=== PATIENT | female | born 1955 | race Caucasian/White ===

== ENCOUNTER 2016-10-25 | Inpatient (IN) ==
[2016-10-25 01:04] LABS: Basophils % 0.1 %; Hematocrit 41.4 % (35.3-44.9); Hemoglobin 12.9 g/dL (11.5-15.4); Immature Granulocytes % 0.5 % (0-4); Immature Platelets 11.6 % (1.1-6.1); Lymphocytes # 1.1 K/mcL (0.6-4.6); Lymphocytes % 8.6 %; Mean Corpuscular HGB Conc 31.2 g/dL (31.6-35.5); Mean Corpuscular Hemoglobin 27.5 pg (28.0-33.3); Mean Corpuscular Volume 88.3 fL (83.0-100.0); Mean Platelet Volume 11.5 fL (9.4-12.4); Monocytes # 1.2 K/mcL (0.0-1.3); Neutrophils # 10.6 K/mcL (1.6-8.9); Nucleated Red Blood Cells 0.2 /100 WBC (0); Platelet Count 146 K/mcL (140-400); Red Blood Count 4.69 M/mcL (3.82-4.97); Red Cell Distribution Width 14.9 % (11.5-14.5); Segmented Neutrophils % 81.8 %
[2016-10-25 01:10] LABS: INR 2.4; Prothrombin Time 26.7 Seconds (9.4-12.1)
[2016-10-25 01:12] LABS: Activated Partial Thrombo Time 24.8 Seconds (26.0-36.0)
[2016-10-25 01:17] LABS: Potassium 4.5 mEq/L (3.5-4.5)
[2016-10-25 01:20] LABS: Calcium 13.8 mg/dL (8.6-10.8)
--- NOTE | 2016-10-25 01:23 | Emergency Department Note ---
START Narrative - START START: I examined this patient and my medical decision-making was reviewed with the MORTAR WORKER/PA/Advanced Practice Nurse/Resident Physician. I agree with the documented findings, disposition and treatment plan as described except to the extent set forth below.
[2016-10-25] MEDS ORDERED: 0.9 % Sodium Chloride 1,000 ML IVC ONE (01:26)
[2016-10-25] MEDS ORDERED: Aspirin 81 MG TAB.CHEW PO STA (01:30)
--- NOTE | 2016-10-25 01:30 | Emergency Department Note ---
Disposition Clinical Impression: New onset a-fib Pneumonia Qualifiers: Pneumonia type: due to unspecified organism Laterality: bilateral Lung location : unspecified part of lung Qualified Code(s): J18.9 - Pneumonia, unspecified organism Disposition: Admitted As Inpatient Condition: Good Referrals: NO,PCP [Primary Care Provider] - Forms: ED Satisfaction Letter Time of Disposition: 02:26 General Adult HPI - General Chief complaint: ED Shortness of Breath/Dyspnea Stated complaint: MARIE Time Seen by Provider: 10/25/16 01:10 Source: patient Limitations: no limitations Nursing Notes Reviewed: Yes Vital Signs Reviewed: Yes - History of Present Illness HPI Narrative: Two-week history of irregular heartbeat feeling at nighttime. Feels like her heart is racing after she has watched the [place] girls. Denies any chest pain or shortness of breath. Does have an increased difficulty breathing whenever she ambulates there are house. She reports no medical history. Recently stopped drinking alcohol 1 month ago and stopped smoking cigarettes one month ago. Pain Scale: 0 - Related Data Allergies Allergy/AdvReac Type Severity Reaction Status Date / Time No Known Allergies Allergy Verified 10/25/16 00:33 All systems ED: reviewed and negative except as stated. Constitutional: Denies: fever, chills ENT ED: Denies: throat pain, congestion Cardiovascular: Reports: palpitations ( only at night for 2 weeks), dyspnea on exertion (For 2 weeks). Denies: chest pain, syncope Respiratory: Denies: cough, dyspnea, wheezes Gastrointestinal: Denies: abdominal pain, nausea, vomiting, diarrhea, hematemesis, melena, hematochezia Genitourinary: Denies: urgency, dysuria, frequency, hematuria Musculoskeletal: Denies: back pain, neck pain Integumentary: Denies: rash, abrasion Neurological: Reports: weakness (Tired for the past 2 weeks.). Denies: headache Past Medical History - Past Medical History Attestation: Yes The following information was validated with the patient. Medical history: Reports: no medical history Psychiatric history: Reports: no psych history HEALTH INFORMATICS SPECIALIST history: Reports: bilateral tubal ligation - Social History Smoking Status: Former smoker Physical Exam - General Limitations: no limitations General appearance: alert, in distress (Appearance mildly dyspneic but denies shortness of breath.) - Head Head exam: atraumatic, normocephalic - Eye Eye exam: Present: normal appearance, PERRL, EOMI - ENT ENT exam: normal exam, normal oropharynx, mucous membranes moist - Neck Neck exam: Present: normal inspection, full ROM, trachea midline. Absent: tenderness, meningismus, lymphadenopathy - Chest Chest inspection: Present: normal inspection, symmetric chest wall rise. Absent : tenderness, rash - Respiratory Respiratory exam: Present: normal lung sounds bilaterally. Absent: respiratory distress, wheezes - Cardiovascular Cardiovascular exam: Present: tachycardia, irregular rhythm, normal heart sounds - Abdominal Exam Abdominal exam: Present: soft, Non-Tender, normal bowel sounds. Absent: tenderness, distention, guarding, rebound, rigidity, organomegaly - Extremities Exam Extremities exam: Present: normal inspection, full ROM, normal capillary refill , pedal edema (Mild bilateral pedal edema to ankle area.). Absent: tenderness - Back Exam Back exam: Present: normal inspection, full ROM. Absent: tenderness, CVA tenderness (R), CVA tenderness (L) - Neurological Exam Neurological exam: Present: alert, oriented X3 - Psychiatric Psychiatric exam: Present: normal affect, normal mood - Skin Skin exam: Present: warm, dry, intact, normal color. Absent: rash, cyanosis, diaphoresis Course Course Narrative: Female patient presenting to the emergency department with a 2 week history of feeling like her heart is racing when she is going to bed at night. She states when she starts watching the [place] girl she can start feeling her heartbeat funny. She denies any chest pain. She does report shortness of breath on ambulation. She denies any shortness of breath at this time. She states that she used to be a heavy drinker and stopped this cold turkey one month ago. She also stopped smoking 1 month ago. She states she is under an increased amount of stress due to the loss of her twin sister. She states that she does not have any medical problems that she is aware of. We do not have records for this patient to look at an old EKG. She states she has never been told that she had an irregular heartbeat. She is in A. fib with RVR at this time. We will begin Cardizem on her. We will give her Cardizem push and begin her on a Cardizem bolus. Her troponin is elevated. She does not have any signs of acute ischemia on her EKG she is denying any chest pain at this time. We will trend her troponins. We will admit patient to hospital. - Reevaluation(s) Reevaluation #1: Patient has a community-acquired pneumonia and a possible right-sided lung mass. Her calcium is elevated. I am concerned for her new cancer. We will treat patients as a pneumonia and admit to the hospital. Time: 02:26 - Consultations Consultation #1: Dr Garcia accepted patient in stable condition. Time: : Vital Signs Temperature 97.4 F L 10/25/16 00:29 Pulse Rate 138 10/25/16 00:29 Respiratory Rate 16 10/25/16 00:29 Blood Pressure 127/83 10/25/16 00:29 O2 Sat by Pulse Oximetry 98 10/25/16 00:29 Temperature 97.4 F L 10/25/16 00:29 Pulse Rate 138 10/25/16 00:29 Respiratory Rate 16 10/25/16 00:29 Blood Pressure 127/83 10/25/16 00:29 O2 Sat by Pulse Oximetry 93 10/25/16 01:27 Oxygen Delivery Oxygen Delivery Room Air Medical Decision Making - Medical Records Medical records reviewed: Yes I reviewed the patient's medical records. - Lab Data Lab results reviewed: Yes I reviewed the patient's lab results. Result diagrams: 10/25/16 00:58 10/25/16 00:58 Lab Results 10/25/16 10/25/16 10/25/16 Range/Units 00:58 00:58 00:58 WBC 13.0 H (4.3-11.1) K/mcL RBC 4.69 (3.82-4.97) M/mcL Hgb 12.9 (11.5-15.4) g/dL Hct 41.4 (35.3-44.9) % MCV 88.3 (83.0-100.0) fL MCH 27.5 L (28.0-33.3) pg MCHC 31.2 L (31.6-35.5) g/dL RDW 14.9 H (11.5-14.5) % Plt Count 146 (140-400) K/mcL MPV 11.5 (9.4-12.4) fL Immature Gran % 0.5 (0-4) % Seg Neutrophils % 81.8 % Lymphocytes % 8.6 % Monocytes % 9.0 % Eosinophils % 0.0 % Basophils % 0.1 % Neutrophils # 10.6 H (1.6-8.9) K/mcL Lymphocytes # 1.1 (0.6-4.6) K/mcL Monocytes # 1.2 (0.0-1.3) K/mcL Eosinophils # 0.0 (0.0-0.6) K/mcL Basophils # 0.0 (0.0-0.2) K/mcL Nucleated RBCs/100 WBC 0.2 H (0) /100 WBC Immature Plt Fraction 11.6 H (1.1-6.1) % PT 26.7 H (9.4-12.1) Seconds INR 2.4 APTT 24.8 L (26.0-36.0) Seconds Sodium 137 (136-145) mEq/L Potassium 4.5 (3.5-4.5) mEq/L Chloride 97 L (98-109) mEq/L Carbon Dioxide 19 (19-29) mEq/L BUN 37 H (7-20) mg/dL Creatinine 1.40 H (0.57-1.11) mg/dL Est GFR ( Amer) 46 L (> 60) Est GFR (Non-Af Amer) 38 L (> 60) BUN/Creatinine Ratio 26 (6-26) Glucose 135 H (70-99) mg/dL Calculated Osmolality 295 (280-300) Calcium 13.8 H* (8.6-10.8) mg/dL Troponin I (0-0.03) ng/mL 10/25/16 Range/Units 00:58 WBC (4.3-11.1) K/mcL RBC (3.82-4.97) M/mcL Hgb (11.5-15.4) g/dL Hct (35.3-44.9) % MCV (83.0-100.0) fL MCH (28.0-33.3) pg MCHC (31.6-35.5) g/dL RDW (11.5-14.5) % Plt Count (140-400) K/mcL MPV (9.4-12.4) fL Immature Gran % (0-4) % Seg Neutrophils % % Lymphocytes % % Monocytes % % Eosinophils % % Basophils % % Neutrophils # (1.6-8.9) K/mcL Lymphocytes # (0.6-4.6) K/mcL Monocytes # (0.0-1.3) K/mcL Eosinophils # (0.0-0.6) K/mcL Basophils # (0.0-0.2) K/mcL Nucleated RBCs/100 WBC (0) /100 WBC Immature Plt Fraction (1.1-6.1) % PT (9.4-12.1) Seconds INR APTT (26.0-36.0) Seconds Sodium (136-145) mEq/L Potassium (3.5-4.5) mEq/L Chloride (98-109) mEq/L Carbon Dioxide (19-29) mEq/L BUN (7-20) mg/dL Creatinine (0.57-1.11) mg/dL Est GFR ( Amer) (> 60) Est GFR (Non-Af Amer) (> 60) BUN/Creatinine Ratio (6-26) Glucose (70-99) mg/dL Calculated Osmolality (280-300) Calcium (8.6-10.8) mg/dL Troponin I 0.23 H* (0-0.03) ng/mL - Radiology Data Radiology results reviewed: Yes I reviewed the patient's radiology results. - EKG Data EKG #1 EKG attestation: Yes I reviewed and interpreted this EKG. EKG results narrative: A. fib with RVR at a rate of 151. QRS duration is 94. QT is 281. QTC is 367. No ST elevation or depression noted. No previous EKG to compare to. Critical Care Time Critical Care Time: Yes Total Critical Care Time: 35 Attestation: Critical care time spent in medical management with him and of her A. fib with Cardizem drip as well as heparin and treatment of possible skin congestive heart failure with pneumonia.
[2016-10-25] MEDS ORDERED: Azithromycin 500 MG in D5% in Water 250 ML IVPB ONE (02:23)
[2016-10-25] MEDS ORDERED: *HR* Heparin 5,000 UNIT/ML VIAL IVP ONE (02:27)
[2016-10-25] MEDS ORDERED: Furosemide 20 MG/2 ML VIAL IVP ONE ×2 (02:29→04:59)
[2016-10-25] MEDS ORDERED: Heparin 25,000 UNIT/500 ML D5W 25,000 UNIT/500 ML MLS IVC SCH (02:30)
[2016-10-25 02:36] LABS: Magnesium 1.8 mg/dL (1.6-2.6)
[2016-10-25] MEDS ORDERED: Acetaminophen 325 MG TABLET PO PRN (04:49)
[2016-10-25] MEDS ORDERED: Naloxone 0.4 MG/ML INJ IVP PRN (04:49)
[2016-10-25] MEDS ORDERED: Levalbuterol Neb 1.25 MG/3 ML IH PRN (04:53)
--- NOTE | 2016-10-25 05:02 | Internal Med History&Physical ---
Date of Encounter: 10/25/16 Time of Encounter: 05:01 Assessment and Plan (1) New onset a-fib Current visit: Yes Status: Acute Likely driven by sepsis. will check for TSH. Pt is started on diltiazem infusion in the ER. Continue and titrate. Obtain echocardiogram. Consider cardiology consultation. Patient was started on heparin infusion in the emergency department, which is discontinued due to elevated INR. (2) Pneumonia Current visit: Yes Status: Acute Will treat for community-acquired pneumonia, with azithromycin and ceftriaxone. Pt may need f/u imaging after treatment, to exclude underlying malignancy Qualifiers: Pneumonia type: due to unspecified organism Laterality: bilateral Lung location: unspecified part of lung Qualified Code(s): J18.9 - Pneumonia, unspecified organism (3) Sepsis Current visit: Yes Status: Acute Likely due to pneumonia. Continue with antibiotics. Patient seemed to have significant CHF and hence will be very cautious with IV fluids. Qualifiers: Sepsis type: sepsis due to unspecified organism Qualified Code(s): A41.9 - Sepsis, unspecified organism (4) CHF (congestive heart failure) Current visit: Yes Status: Acute Possibly due to cardio myopathy associated with tachycardia / A fib versus alcoholic cardiomyopathy versus ischemic. Patient is given IV Lasix. Will obtain echocardiogram Qualifiers: Congestive heart failure type: unspecified congestive heart failure type Congestive heart failure chronicity: unspecified congestive heart failure chronicity Qualified Code(s): I50.9 - Heart failure, unspecified (5) Hypercalcemia Current visit: Yes Status: Acute Malignancy related versus hyperparathyroidism. Check PTH, phosphorus, ionized calcium. Pt is given IV lasix. In view of clinical volume overload, will be cautious with IV fluids. Conside zoladronic acid. (6) Elevated troponin Current visit: Yes Status: Acute Likely secondary to A fib with RVR. Monitor (7) Hepatomegaly Current visit: Yes Status: Acute Likely secondary to chronic disease versus CHF. WIll obtain ultrasound scan of the liver. (8) Coagulopathy Current visit: Yes Status: Acute Likely secondary to chronic liver disease. Monitor (9) Lactic acidosis Current visit: Yes Status: Acute Likely secondary to sepsis versus CHF. Monitor (10) DVT prophylaxis Current visit: Yes Status: Acute SCDs Internal Medicine - H&P: HPI Chief complaint: Shortness of breath Admitted From: Emergency Dept Plans for Post Hospital Care: Home History of present illness: Ms. Cook is a 61 year old female, who has not been to a physician in many years. she is not on any home medications. She is a poor historian and family members do not know what was going on with her. she has about 40 pack year h/o smoking and alcohol use (she denies daily use and stopped 1 month ago). She apparently was not feeling well for a few weeks. Family members were called from [place], who noticed her to be very short of breath and brought her to the ER. Patient reports shortness of breath at rest, particularly on sitting up. She denies chest pain, significant cough, expectoration, fever, chills, nausea, vomiting, palpitations. She denies abdominal pain, dysuria, hematuria, or bowel problems. she apparently does not ambulate well. Her daughter reports noticing leg swelling. She was evaluated in the ER and was noted to have A fib with RVR and imaging showed bilateral lung infiltrates, concerning for pneumonia. She was given azithromycin and ceftriaxone and started on diltiazem infusion. She is admitted to the hospitalist service for further workup and management. Past Med Surg Social Fam HX - Past Medical History Medical history: no medical history Psychiatric history: no psych history - Social History Smoking Status: Former smoker - Additional Family History Additional family history: Family history reviewed and is noncontributory to current admission Internal Medicine - H&P: Meds No Known Home Drugs 10/25/16 [History] Allergies No Known Allergies Allergy (Verified 10/25/16 00:33) All Systems PM: A 10-system review of systems was performed and is negative for pertinent findings except as documented above in the HPI. - Constitutional Vitals: Temp Pulse Resp BP Pulse Ox 98.4 F 96 16 141/87 98 10/25/16 03:57 10/25/16 03:57 10/25/16 03:57 10/25/16 03:57 10/25/16 03:57 Exam: General: Not in acute pain at the time of my evaluation HEENT: Oral mucosa is dry. No conjunctival palor or scleral icterus. Proptosis of the left eye Neck: No obvious neck swellings Lungs: Bilateral basal crackles present Cardiac: Irregular rhythm. No significant murmurs Abdomen: Soft, non tender. Bowel sounds present. Hepatomegaly present Genitourinary: No correa catheter Neurological: Alert and confused at times. No gross localizing deficits. No flapping tremors present Psych: Not aggressive or agitated Extremities: B/L leg edema present Skin: No generalized rash Internal Med - H&P Results - Labs CBC & Chem 7: 10/25/16 00:58 10/25/16 00:58 - EKG Data -: EKG Interpreted by Myself - EKG Data EKG comments: Atrial fibrillation with rapid response. heart rate of 151 10/25/16 08:23 - Impressions ITS Impressions Chest X-Ray 10/25/16 00:47 IMPRESSION: 1. There are marked bilateral lung infiltrates with a masslike consolidation noted in the right mid-lower lung field. This is likely related to pneumonia. However, follow-up radiographs are recommended to ensure resolution. 2. Pulmonary vascular congestion with a left pleural effusion. D/ /25/2016 07:21:01 Jacques Lopez MD / chelle Interpreting Provider: Jacques Lopez MD Chest CT 10/25/16 02:30 IMPRESSION: 1. There are bilateral lung infiltrates, most pronounced in the left upper lobe, right lower lobe, and right middle lobe, concerning for pneumonia. An underlying mass cannot entirely be excluded, however, is felt less likely. There are associated moderate bilateral pleural effusions with associated volume loss in the lung bases. 2. Cardiomegaly. 3. There is an enlarged left AP window lymph node as well as a left level 4 jugular chain lymph node, presumably reactive. 4. Anasarca. D/ /25/2016 07:35:57 Jacques Lopez MD / chelle Interpreting Provider: Jacques Lopez MD
[2016-10-25 05:49] LABS: Bilirubin,Urine Negative (Negative); Blood,Urine Moderate (Negative); Clarity,Urine Cloudy (Clear); Color,Urine Dark Yellow (Yellow); Glucose,Urine (UA) Normal (Normal); Ketones,Urine Negative (Negative); Leukocyte Esterase,Urine Negative (Negative); Nitrite,Urine Negative (Negative); PH,Urine 5.5 pH Units (5.0-8.0); Protein,Urine 100 mg/dL (Neg-Trace); Specific Gravity,Urine 1.019 (1.010-1.025); Urobilinogen,Urine Normal (Normal)
[2016-10-25 05:52] LABS: Bacteria,Urine Moderate per hpf (None-Few); Hyaline Casts,Urine Few per lpf (None-Few); Squamous Epithelial Cell,Urine Many per lpf (None-Few)
[2016-10-25 06:03] LABS: Albumin 3.1 g/dL (3.5-5.0); Albumin/Globulin Ratio 1.1 (1.1-2.2); Bilirubin,Direct 1.8 mg/dL (0.0-0.5); Bilirubin,Indirect 1.1 mg/dL (0.0-1.2); Bilirubin,Total 2.9 mg/dL (0.2-1.2); Chol/HDL Ratio 3.6 (0-4.9); Globulin 2.9 g/dL (2.4-3.5); Ionized Calcium 1.71 mmol/L (1.15-1.35)
[2016-10-25 06:06] LABS: Calcium 13.1 mg/dL (8.6-10.8)
[2016-10-25 06:51] LABS: Thyroid Stimulating Hormone 1.365 mcIU/mL (0.350-4.840)
[2016-10-25 10:08] LABS: Acetaminophen < 1.0 mcg/mL (10-30); Creatine Kinase 528 Units/L (29-168)
[2016-10-25 10:35] LABS: Hepatitis B Surface Antigen Nonreactive (Nonreactive)
--- NOTE | 2016-10-25 11:33 | Internal Med Progress Note ---
<John Hoyos - Last Filed: 10/25/16 15:55> Date of Encounter: 10/25/16 Time of Encounter: 11:00 - Assessment and plan (1) New onset a-fib Current Visit: Yes Status: Acute Assessment and plan: Likely driven by sepsis. TSH normal Pt was started on diltiazem infusion in the ER, plan to titrate as needed. Echocardiogram pending. Consider cardiology consultation. (2) Pneumonia Current Visit: Yes Status: Acute Assessment and plan: Started on azithromycin and ceftriaxone for community-acquired pneumonia. Patient started on Xopenex. Pt may need f/u imaging after treatment, to exclude underlying malignancy Qualifiers: Pneumonia type: due to unspecified organism Laterality: bilateral Lung location: unspecified part of lung Qualified Code(s): J18.9 - Pneumonia, unspecified organism (3) Sepsis Current Visit: Yes Status: Acute Assessment and plan: Possibly 2/2 to pneumonia. Continue Azithromycin and Ceftriaxone. Patient received fluids this AM, careful in the setting of possible CHF. Will discuss with attending need of fluids in the setting of possible JEET and sepsis. Qualifiers: Sepsis type: sepsis due to unspecified organism Qualified Code(s): A41.9 - Sepsis, unspecified organism (4) Abnormal liver enzymes Current Visit: Yes Status: Acute Assessment and plan: AST 3265, ALT 1956 History of alcohol use, denies any drug use, denies recent ingest of prescription or OTC medications (including acetaminophen). Pending Hepatitis Viral Panel. (5) Hyperparathyroidism Current Visit: Yes Status: Acute Assessment and plan: Likely 1* hyperparathyroidism with elevated calcium of 13.1 PTH intact 487.5 Enlarged thyroid/parathyroid- US ordered. Nephrology ([facility]) consulted, appreciate their input and recommendations. (6) CHF (congestive heart failure) Current Visit: Yes Status: Acute Assessment and plan: Possibly due to cardiomyopathy associated with tachycardia / A fib versus alcoholic cardiomyopathy versus ischemic. Patient received IV Lasix. BNP 3590 Pending echocardiogram Consider Cardio consult. Qualifiers: Congestive heart failure type: unspecified congestive heart failure type Congestive heart failure chronicity: unspecified congestive heart failure chronicity Qualified Code(s): I50.9 - Heart failure, unspecified (7) Hypercalcemia Current Visit: Yes Status: Acute Assessment and plan: Likely related to hyperPTH. Ca 13.1, PTH 487.5 Nephrology consulted. Consider bisphosphates. Continue to monitor. (8) Elevated troponin Current Visit: Yes Status: Acute Assessment and plan: Adynamic elevated troponin at 0.23 and 0.22. Likely secondary to demand ischemia. Echo pending. Telemetry. Continue to monitor. (9) Hepatomegaly Current Visit: Yes Status: Acute Assessment and plan: Liver US pending. See plan for abnormal liver enzymes. (10) Coagulopathy Current Visit: Yes Status: Acute Assessment and plan: INR elevated at 2.4. No signs of active bleeding. Workup for hepatomegaly and abnormal enzymes. (11) Lactic acidosis Current Visit: Yes Status: Acute Assessment and plan: Lactic acid elevated at 4.7. Patient given fluids. Will recheck lactate. (12) JEET (acute kidney injury) Current Visit: Yes Status: Acute Assessment and plan: Creatinine elevated at 1.4. Baseline function unknown. Estimated GFR 38. Continue fluids. Nephrology consulted. (13) History of ETOH abuse Current Visit: Yes Status: Acute Assessment and plan: History of heavy alcohol use. Patient states she quits, last ddrink on 10/10/16. [facility] protocol. - Time Spent With Patient 25 - 35 minutes - Subjective Interval history: Patient seen and examined at bedside. Noted incontinence this AM. Ate lunch without difficulty. No nausea, vomiting. - Constitutional Vitals: Temp Pulse Resp BP Pulse Ox 97.8 F 94 17 112/91 96 10/25/16 08:42 10/25/16 08:42 10/25/16 08:42 10/25/16 08:42 10/25/16 08:42 General appearance: Present: cooperative, pleasant, no acute distress, answers questions appropriately (Patient's fixates on topic/story, provides partial responses to questioning at times.) - Head Head exam: Present: atraumatic, normocephalic - Eye Eye exam: Present: EOMI, nystagmus (of R eye) - ENT ENT exam: Present: mucous membranes moist - Neck Neck exam general surgery: Present: full ROM, thyromegaly (bilaterally), trachea midline - Respiratory Respiratory exam: Present: decreased breath sounds, CTAB - Cardiovascular Cardiovascular exam: Present: irregular rhythm, tachycardia - GI/Abdominal GI/Abdominal exam: Present: hepatomegaly, normal bowel sounds, soft, tenderness (mild tenderness with palpation of liver.). Absent: distended, firm, guarding - Extremities Exam Extremities exam: Absent: cyanotic, pedal edema - Neurological Exam Neurological exam: Present: alert, no focal deficits. Absent: facial droop, speech deficit - Skin Skin exam: Present: dry, intact, warm. Absent: cyanosis, petechiae, rash Internal Medicine: Result - Labs CBC & Chem 7: 10/25/16 00:58 10/25/16 00:58 Labs: BMP 10/25/16 05:38 Calcium 13.1 H* Cardiac Enzymes 10/25/16 Range/Units 05:38 Troponin I 0.22 H* (0-0.03) ng/mL Liver Function 10/25/16 Range/Units 05:38 Total Bilirubin 2.9 H (0.2-1.2) mg/dL Direct Bilirubin 1.8 H (0.0-0.5) mg/dL AST 3265 H (5-34) Units/L ALT 1956 H (0-55) Units/L Alkaline Phosphatase 150 H (38-126) Units/L Albumin 3.1 L (3.5-5.0) g/dL - ABG Interpretation ABG results: PT/INR, D-dimer PT 26.7 Seconds (9.4-12.1) H 10/25/16 00:58 Consult Discharge Plan - Plan Referrals: Vilma Aiken DO [Resident] - 12/22/16 10:30 am (called [phone] this was the earliest they had available) <Parth Watson - Last Filed: 10/25/16 17:43> Date of Encounter: 10/25/16 - Constitutional Vitals: Temp Pulse Resp BP Pulse Ox 97.3 F L 84 17 103/91 98 10/25/16 12:05 10/25/16 12:05 10/25/16 12:05 10/25/16 12:05 10/25/16 12:05 Internal Medicine: Result - Labs CBC & Chem 7: 10/25/16 00:58 10/25/16 00:58 Labs: BMP 10/25/16 05:38 Calcium 13.1 H* Cardiac Enzymes 10/25/16 Range/Units 05:38 Troponin I 0.22 H* (0-0.03) ng/mL Liver Function 10/25/16 Range/Units 05:38 Total Bilirubin 2.9 H (0.2-1.2) mg/dL Direct Bilirubin 1.8 H (0.0-0.5) mg/dL AST 3265 H (5-34) Units/L ALT 1956 H (0-55) Units/L Alkaline Phosphatase 150 H (38-126) Units/L Albumin 3.1 L (3.5-5.0) g/dL - ABG Interpretation ABG results: PT/INR, D-dimer PT 26.7 Seconds (9.4-12.1) H 10/25/16 00:58 - Attending Attestation I examined this patient and my medical decision-making was reviewed with the Resident Physician on 10/25/16. I agree with the documented findings, disposition and treatment plan as described except to the extent set forth below. Ms. Cook was admitted early this AM. She has multiple medical issues including rapid a fib, hepatomegaly, CHF (echo pending), hyperparathyroidism ( appears primary). She is currently eating lunch. Denies pain or dyspnea. Continue current plan.
[2016-10-25] MEDS ORDERED: *HR* LORazepam 2 MG/ML VIAL IVP PRN ×3 (11:34)
[2016-10-25 12:02] LABS: Amphetamine Screen,Urine Negative ng/mL (Cutoff=1000); Barbiturate Screen,Urine Negative ng/mL (Cutoff=200); Benzodiazepines Screen,Urine Negative ng/mL (Cutoff=200); Cannabinoid Screen,Urine Negative ng/mL (Cutoff = 50); Cocaine Screen,Urine Negative ng/mL (Cutoff= 300); Opiate Screen,Urine Negative ng/mL (Cutoff=300); Phencyclidine Screen,Urine Negative ng/mL (Cutoff=25)
--- NOTE | 2016-10-25 13:13 | Electrocardiograph Report ---
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
[2016-10-25] MEDS ORDERED: Perflutren Lipid Microsphere 1.3 ML in 0.9 % Sodium Chloride 8.7 ML IVP ONE (21:05)
[2016-10-26 05:05] LABS: Basophils % 0.1 %; Eosinophils % 0.2 %; Hematocrit 38.1 % (35.3-44.9); Immature Granulocytes % 0.7 % (0-4); Lymphocytes # 1.2 K/mcL (0.6-4.6); Lymphocytes % 9.4 %; Mean Corpuscular HGB Conc 31.5 g/dL (31.6-35.5); Mean Corpuscular Volume 85.8 fL (83.0-100.0); Monocytes # 0.9 K/mcL (0.0-1.3); Monocytes % 6.8 %; Nucleated Red Blood Cells 0.2 /100 WBC (0); Platelet Count 100 K/mcL (140-400); Red Blood Count 4.44 M/mcL (3.82-4.97); Red Cell Distribution Width 14.7 % (11.5-14.5); Segmented Neutrophils % 82.8 %
[2016-10-26 05:19] LABS: Alanine Aminotransferase 1415 Units/L (0-55); Albumin 2.7 g/dL (3.5-5.0); Alkaline Phosphatase 155 Units/L (38-126); Aspartate Amino Transferase 1539 Units/L (5-34); BUN/Creatinine Ratio 39 (6-26); Bilirubin,Total 2.2 mg/dL (0.2-1.2); Blood Urea Nitrogen 39 mg/dL (7-20); Calcium 12.5 mg/dL (8.6-10.8); Carbon Dioxide 31 mEq/L (19-29); Chloride 98 mEq/L (98-109); Globulin 2.8 g/dL (2.4-3.5); Glucose 109 mg/dL (70-99); Osmolality,Calculated 292 (280-300); Potassium 3.6 mEq/L (3.5-4.5); Sodium 136 mEq/L (136-145); Total Protein 5.5 g/dL (6.0-8.3); eGFR For African Americans > 60 (> 60); eGFR For Non-African Americans 57 (> 60)
[2016-10-26] MEDS: Azithromycin 250 MG TABLET PO SCH (05:58)
[2016-10-26] MEDS ORDERED: *HR* Phytonadione 5 MG TABLET PO ONE (09:09)
[2016-10-26] MEDS ORDERED: Thiamine (B-1) 100 MG in D5% in Water 50 ML IVPB ONE (09:15)
--- NOTE | 2016-10-26 09:27 | Nephrology Consult Note ---
Date of Encounter: 10/26/16 Time of Encounter: 08:30 Assessment and Plan (1) Hypercalcemia Current Visit: Yes Status: Acute Most likely Primary hyperparathyroidism versus malignacy. Calcium slow trend downward. Workup in progress. Acute treatment of elevated calcium is Normal Saline 100cc/hr with concern for fluid overload, will give Lasix 20mg IV daily, both will aid in excretion of urinary calcium. Halfway treatment of suspected Primary Hyperparathyroidism, possible adenoma. Will start Sensipar. If no improvement will consider Bisphosphonate. If nuclear scan positive will consult ENT for parathyroidectomy. History of Present Illness - Reason for Consult Consult date: 10/26/16 - History of Present Illness Ms. 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 Family members present in room relate no prior medical history and states Ms. Cook has not been to doctor in 37 years. HPI obtained from prior documented records. Ms. Cook presented to ER with irregular, fast heart rate for two weeks, shortness of breath and LE swelling. She stated she was heavy alcohol drinker and smoker and quit both "cold turkey" one month ago. In ER she was in Afib with RVR and started on Cardizem drip. It was noted in her labs calcium 13.1, today 12.5. PTH 487. Also creat 1.44 and 0.99 today. Proteinuria, albumin 2.7. BNP 3590. Liver enzymes elevated. CXR-bilateral infiltrates and concerning mass on right. CT chest-cardiomegaly, moderate bilateral pleural effusions, mediastinal lymph nodes, anasarca and concerning right mass. Thyroid scan-suggests chronic thyroiditis. Left lobe nodule may be parathyroid adenoma or enlarged cervical lymph node. Normal TSH. This morning she is alert, oriented, having difficulty focusing. She states she is breathing easier though noted mild tachypnea, conversational SOB. Appears somewhat cachectic. Mild LE pitting edema, no edema in upper body or buttock/thighs. She states thighs are her normal size. Past Med Surg Social Fam HX - Past Medical History Medical history: no medical history Psychiatric history: no psych history - Social History Smoking Status: Former smoker Alcohol use: none, recent Drug use: none Medications and Allergies No Known Home Drugs 10/25/16 [History] Allergies No Known Allergies Allergy (Verified 10/25/16 00:33) Review of Systems All Systems: reviewed and no additional remarkable complaints except as stated Exam - Vital Signs Vital signs: Initial Vital Signs Temp Pulse Resp BP Pulse Ox 97.4 F L 138 16 127/83 98 10/25/16 00:29 10/25/16 00:29 10/25/16 00:29 10/25/16 00:29 10/25/16 00:29 Vital Signs - Last 8 Hours Temp Pulse Resp BP Pulse Ox 10/26/16 07:26 97.4 F L 86 22 123/101 99 10/26/16 04:53 97.4 F L 97 22 132/94 96 10/26/16 03:55 95 Intake and Output 10/25/16 10/26/16 10/26/16 23:59 07:59 15:59 Intake Total 125 / 125 0 / 0 Output Total 150 / 150 0 / 0 Balance -25 / -25 0 / 0 Intake: IV Fluids 125 / 125 Cardizem 125 MG In 125 / 125 Dextrose 5% 100 ML @ 5 MG /HR 5 mls/hr IVC .Q24H [facility] Rx#:[id number] Oral 0 / 0 0 / 0 Output: Urine 150 / 150 0 / 0 Other: Weight 67.6 kg Patient Weight 10/26/16 23:59 Weight 67.6 kg - General Appearance General appearance: frail Exam: somewhat cachectic EENT: mucous membranes moist Neck: no JVD Additional Comments: diminished, scattered wheezes Cardiology: edema, irregular rhythm Additional Comments: mild LE pitting edema Gastrointestinal: normoactive bowel sounds, no tenderness Integumentary: no rash, warm and dry Neurologic: alert and oriented x3 Psychiatric: mood/affect appropriate, cooperative Results - Lab Results 10/26/16 04:40 10/26/16 04:40 Most recent lab results Calcium 12.5 mg/dL (8.6-10.8) H 10/26/16 04:40 Phosphorus 3.0 mg/dL (2.3-4.7) 10/25/16 16:00 Magnesium 1.8 mg/dL (1.6-2.6) 10/25/16 00:58 Consult Discharge Plan - Plan Referrals: Vilma Aiken DO [Resident] - 12/22/16 10:30 am (called [phone] this was the earliest they had available)
[2016-10-26] MEDS ORDERED: 0.9 % Sodium Chloride 1,000 ML IVC SCH (09:45)
--- NOTE | 2016-10-26 09:49 | ECHO - Doppler Report ---
Echo with Imaging Enhancement Agent Name: Vinod Cook Date of Study: 10/25/2016 Date: 1955 Ht: 67.0 in Medical Record#: [id number] Age: 61 Wt: 151.0 lb Gender: Female BSA: 1.79 Order #: [id number] Location: [facility] Room #: [id number] Reading Physician: Jameson Sanchez MD, [facility] Director Of Property Management: Elba Contreras Ordering Physician: See Terry MD Primary Physician: None Indications: Possible CHF, AFIB Impressions: Severely dilated left ventricle. Severe LV systolic dysfunction, LVEF 15%. There is severe global LV hypokinesis. Mildly dilated right ventricle with mild RV hypokinesis. Severely dilated left atrium. Severely dilated right atrium. Mild mitral regurgitation. Mild-moderate tricuspid regurgitation. Mild-moderate pulmonary hypertension. Estimated RVSP = 46 mmHg. Left Ventricular Wall Motion: Rest Echo Findings The apex, apical inferior, mid inferior, basal inferior, apical anterior, mid anterior, basal anterior, apical septal, mid inferior septal, basal inferior septal, apical lateral, mid anterior lateral, basal anterior lateral, mid anterior septal, mid inferior lateral, basal anterior septal and basal inferior lateral bergman were hypokinetic. Findings: Study Quality * Technically adequate exam. ECG Findings * Atrial fibrillation. Left Ventricle * Severely dilated left ventricle. * Severe LV systolic dysfunction, LVEF 15%. There is severe global LV hypokinesis. * Normal LV wall thickness. * Indeterminate diastolic function. Right Ventricle * Mildly dilated right ventricle with mild RV hypokinesis. Left Atrium * Severely dilated left atrium. Right Atrium * Severely dilated right atrium. Aorta * Normally sized aortic root. Pericardium * There is a trivial pericardial effusion present. IVC * The IVC is dilated. * Approximately 50% respiratory change Aortic Valve * Trileaflet aortic valve. * No aortic stenosis. * Trace aortic regurgitation. Mitral Valve * Mild mitral annular calcification * Mildly thickened mitral valve leaflets. * No mitral stenosis. * Mild mitral regurgitation. Tricuspid Valve * Normal tricuspid valve structure. * Mild-moderate tricuspid regurgitation. * Mild-moderate pulmonary hypertension. Estimated RVSP = 46 mmHg. Pulmonic Valve * Pulmonic valve not well visualized. * No pulmonic stenosis. * Mild pulmonic regurgitation. Pleural Effusion * A pleural effusion is noted. Contrast: Definity 1.3 ml in 8.7 ml of saline 2 ml. Measurements: BP: 91/ 2D Normal Values RVIDd: 4.00 cm IVSd: .80 cm 0.6 - 1.0 cm LVIDd: 6.20 cm 3.7 - 5.6 cm LVPWd: 1.00 cm 0.6 - 1.1 cm LVIDs: 5.50 cm 1.5 - 3.6 cm AO: 2.40 cm < 4.0 cm %FS: 11.30 cm >25 % LA volume: 117 Tricuspid Valve TV Regurg Peak Grad: 36.00mmHg TV Regurg Peak Epifanio: 2.99m/sec Updated by Jameson Sanchez MD, FACC on 10/26/2016 9:44:18 AM electronically signed on 10/26/2016 9:45:12 AM with status of Final Wall Motion Moreno: 1=Normal, 2=Hypokinesis, 3=Akinesis, 4=Dyskinesis, 5=Aneurysmal, 6=Hyperkinetic, X=Not Visualized (Blank)=Missing
[2016-10-26 11:03] LABS: Hepatitis A Antibody IgM Nonreactive (Nonreactive); Hepatitis B Core IgM Nonreactive (Nonreactive); Hepatitis C Virus Antibody Nonreactive (Nonreactive)
[2016-10-26] MEDS: Folic Acid 1 MG TABLET PO SCH (11:39)
[2016-10-26] MEDS: Vitamin B Complex/Vit C/Vit E 1 EACH TABLET PO SCH (11:39)
[2016-10-26 13:27] LABS: Folate 9.4 ng/mL (7.0-31.4)
[2016-10-26 13:45] LABS: Vitamin B12 > 2000 pg/mL (213-816)
--- NOTE | 2016-10-26 16:02 | Internal Med Progress Note ---
Date of Encounter: 10/26/16 Time of Encounter: 15:00 - Assessment and plan (1) Systolic heart failure Current Visit: Yes Status: Acute Assessment and plan: EF approx 15% on echocardiogram. She has anasarca on exam. IV fluids held. Cardizem drip stopped and very low dose Coreg started. Cardiology to eval. Appears BP will tolerate starting SHIMON I. Etiology of heart failure could be fdc ETOH versus other. Qualifiers: Heart failure chronicity: chronic Qualified Code(s): I50.22 - Chronic systolic (congestive) heart failure (2) Atrial fibrillation Current Visit: Yes Status: Acute Assessment and plan: Currently on cardizem drip but will change to low dose Coreg. INR is elevated but in this setting may not be adequate for anticoagulation. 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 Currently on Ceftriaxone and Azithromycin. WBC slightly elevated. Follow imaging and clinical course. Qualifiers: Pneumonia type: due to unspecified organism Laterality: bilateral Lung location: unspecified part of lung Qualified Code(s): J18.9 - Pneumonia, unspecified organism (4) Hypercalcemia Current Visit: Yes Status: Acute Assessment and plan: Related to hyperparathyroidism. Slightly better than yesterday. Appreciate nephro input. IV fluids stopped per cardiology due to EF 15%. Sensipar started. Lasix given as well. Recheck tomorrow. (5) Hyperparathyroidism, primary Current Visit: Yes Status: Acute Assessment and plan: PTH level elevated with elevated calcium. Vit D level is low though. Parathyroid scan shows increased uptake in L lobe of thyroid c/w adenoma of parathyroid. (6) JEET (acute kidney injury) Current Visit: Yes Status: Resolved Assessment and plan: JEET improved today. (7) Abnormal liver enzymes Current Visit: Yes Status: Acute Assessment and plan: Levels have decreased today. Anti smooth muscle antibody ordered. Could be due to hepatic congestion from CHF though very high. Hepatitis studies negative. Recheck tomorrow. (8) Lactic acidosis Current Visit: Yes Status: Acute Assessment and plan: Lactate decreased with fluids to 2.8. Will need recheck. (9) Sepsis Current Visit: Yes Status: Acute Assessment and plan: Most likely due to acute pneumonia. Recheck lactate today. Qualifiers: Sepsis type: sepsis due to unspecified organism Qualified Code(s): A41.9 - Sepsis, unspecified organism (10) Coagulopathy Current Visit: Yes Status: Acute Assessment and plan: Related to liver disease but also nutritional part. Vit K given. Will also give subqu heparin. (11) Moderate protein malnutrition Current Visit: Yes Status: Chronic Assessment and plan: Add supplements. (12) Mass of thyroid region Current Visit: Yes Status: Acute Assessment and plan: Area seen near L thyroid lobe. Does not enhance on parathyroid scan. No other adenopathy. May need FNA/biopsy. (13) CVA (cerebral vascular accident) Current Visit: Yes Status: Suspected Assessment and plan: CT of head suggests perhaps CVA. At this point pt will not tolerate MRI. Will need ASA. No statin due to LFTs. High risk for stroke due to atrial fibrillation and systolic heart failure. Qualifiers: CVA mechanism: embolism Precerebral and cerebral artery: anterior cerebral artery Laterality of affected vessel: left Qualified Code(s): I63.422 - Cerebral infarction due to embolism of left anterior cerebral artery (14) Vitamin D deficiency Current Visit: Yes Status: Acute Assessment and plan: Replace (15) History of ETOH abuse Current Visit: Yes Status: Acute Assessment and plan: Prior heavy alcohol use. Thiamine and vitamins added. CIWA though she says last drink a month ago. - Subjective Interval history: Ms. Cook is currently hospitalized for multiple medical issues including hypercalcemia, atrial fibrillation, CHF. She is high risk due to potential for worsening cardiac and respiratory status. Ms. Cook denies specific complaints. She admits to some difficulty breathing. No CP. No abd pain. No fever or chills. She is tired as she has had multiple tests today. Her niece, daughter and (I think) son-in-law are at bedside. I began to try to explain to them the complicated medical issues the patient is facing at this time. We discussed atrial fibrillation, CHF, ? CVA (pt would have difficulty completing MRI at this time), hyperparathyroidism and calcium, LFTs, and the testing she has had done. They appeared to begin to understand but this will require a lot of continued explanation. - Constitutional Vitals: Temp Pulse Resp BP Pulse Ox 97.4 F L 96 22 122/101 96 10/26/16 15:14 10/26/16 15:14 10/26/16 15:14 10/26/16 15:14 10/26/16 15:14 General appearance: Present: cooperative, pleasant, answers questions appropriately (Patient's fixates on topic/story, provides partial responses to questioning at times.) - Head Head exam: Present: atraumatic, normocephalic - Eye Eye exam: Present: conjuntiva pink, sclera anicteric - ENT ENT exam: Present: mucous membranes dry - Neck Additional comments: JVD present. Mobile structure felt on L neck - consistent with possible lymph node on CT. - Respiratory Respiratory exam: Present: decreased breath sounds, rales, rhonchi - Cardiovascular Cardiovascular exam: Present: irregular rhythm, systolic murmur. Absent: tachycardia - GI/Abdominal GI/Abdominal exam: Present: hepatomegaly, normal bowel sounds, soft. Absent: tenderness - Extremities Exam Extremities exam: Present: warm Additional comments: Edema noted bilaterally. - Neurological Exam Neurological exam: Present: alert, altered - Skin Skin exam: Present: dry, warm. Absent: rash Internal Medicine: Result - Labs CBC & Chem 7: 10/26/16 04:40 10/26/16 04:40 Labs: Short CBC 10/26/16 Range/Units 04:40 WBC 13.3 H (4.3-11.1) K/mcL Hgb 12.0 (11.5-15.4) g/dL Hct 38.1 (35.3-44.9) % Plt Count 100 L (140-400) K/mcL Neutrophils # 11.0 H (1.6-8.9) K/mcL BMP 10/26/16 04:40 Sodium 136 Potassium 3.6 Chloride 98 Carbon Dioxide 31 H BUN 39 H Creatinine 0.99 Glucose 109 H Calcium 12.5 H Liver Function 10/26/16 Range/Units 04:40 Total Bilirubin 2.2 H (0.2-1.2) mg/dL AST 1539 H (5-34) Units/L ALT 1415 H (0-55) Units/L Alkaline Phosphatase 155 H (38-126) Units/L Albumin 2.7 L (3.5-5.0) g/dL - ABG Interpretation ABG results: PT/INR, D-dimer PT 26.7 Seconds (9.4-12.1) H 10/25/16 00:58 - Impressions Impressions Thyroid Ultrasound 10/25/16 16:30 IMPRESSION: 1. Heterogeneous hypervascular thyroid gland. Findings suggest chronic thyroiditis. 2. 2.2 x 1.6 cm hypoechoic nodule posterior to the left lobe of the thyroid gland. This is extrathyroidal and may be a parathyroid adenoma or enlarged cervical lymph node. Follow-up is suggested, which should likely begin with a nuclear medicine parathyroid scan. D/ / Mario Renee MD / Mario Renee MD Interpreting Provider: Mario Renee MD Parathyroid Scan Nuclear Medicine 10/25/16 18:46 IMPRESSION: Asymmetric activity at the left thyroid bed is suspicious for parathyroid adenoma in the appropriate clinical setting. D/ / Endy Torres MD / Endy Torres MD Interpreting Provider: Endy Torres MD Head CT 10/26/16 10:45 IMPRESSION: 1. Subtle low attenuation within the left frontal and parietal lobes. This may be secondary to small vessel ischemic disease but a developing acute infarct cannot be excluded. I would suggest further evaluation with MRI. D/ / Felix Riley MD / Felix Riley MD Interpreting Provider: Felix Riley MD Soft Tissue Neck CT 10/26/16 10:45 IMPRESSION: 1. 1.1 x 2 cm ovoid soft tissue nodule posterior inferior to the left thyroid lobe may represent an enlarged lymph node. 2. No evidence of additional cervical lymphadenopathy or cervical soft tissue mass. 3. Left upper lobe airspace opacity suspicious for pneumonia. At least moderate to large right-sided pleural effusion. D/ / 10/26/2016 12:03:46 Cora Munoz MD / juan Interpreting Provider: Cora Munoz MD - VTE Documentation of Mechanical Device: Intermittent pneumatic compression device Consult Discharge Plan - Plan Referrals: Vilma Aiken DO [Resident] - 12/22/16 10:30 am (called [phone] this was the earliest they had available)
[2016-10-26] MEDS: *HR* Heparin 5,000 UNIT/ML VIAL SQ SCH (17:15)
[2016-10-26] MEDS: Cholecalciferol (D-3) 1,000 UNIT TABLET PO SCH (17:16)
--- NOTE | 2016-10-26 18:35 | Cardiology Consult Note ---
Date of Encounter: 10/26/16 Time of Encounter: 18:32 Assessment and Plan (1) Cardiomyopathy Current Visit: Yes Status: Acute Severe CMP, LVEF 15% in setting of alcohol abuse for many years. Associated abnormal LFTs/INR - likely related to alcoholic cirrhosis with component of congestive hepatopathy. BP stable. Recommend initiation of medical therapy - agree with BB/lisinopril. Start low dose lasix - 20 mg IV daily. Consider R/LHC once medically stable. Poor prognonsis. Findings and plan discussed with patient and family. Qualifiers: Cardiomyopathy type: alcoholic Qualified Code(s): I42.6 - Alcoholic cardiomyopathy (2) Atrial fibrillation Current Visit: Yes Status: Acute New AF in setting of alcoholism and CMP. INR 2.4 due to liver dysfunction. Not a good coumadin candidate. Titrate BB as BP tolerate for HR control. Qualifiers: Atrial fibrillation type: unspecified Qualified Code(s): I48.91 - Unspecified atrial fibrillation Discussion w patient/family: The assessment and plan as outlined above was discussed with the patient and/or family members who expressed understanding and agreement. All questions were answered. Thank you for involving us in the care of your patient. Please call with any questions. History of Present Illness Consult date: 10/26/16 Requesting physician: Parth Watson Consult reason: CMP Chief complaint: Dyspnea History of present illness: Ms. Cook is a 61 year old female admitted for dyspnea and palpitations. AF with RVR noted in ER. History c/w alcoholism for many years. One month ago - dyspnea at rest and with any activity. Noted hypercalcemia, JEET, LFTs/INR, mild troponin on admission. Hepatitis panel negative. Subsequent echocardiogram - LVEF 15%. Severe biatrial enlargement. Mild MR, Mild to moderate TR, mild to moderate PHTN. Past Med Surg Social Fam HX - Past Medical History Medical history: no medical history Psychiatric history: no psych history - Social History Smoking Status: Former smoker Alcohol use: none, recent Drug use: none Medications and Allergies No Known Home Drugs 10/25/16 [History] Allergies No Known Allergies Allergy (Verified 10/25/16 00:33) All Systems Review: A 10-system review of systems was performed and is negative for pertinent findings except as documented above in the HPI. - Cardiovascular Cardiovascular: as per HPI Physical Examination Vital Signs, Last 4 Hours Temp Pulse Resp BP Pulse Ox 10/26/16 15:14 97.4 F L 96 22 122/101 96 General: Conversant, Other (Seems confused, disheveled. ) HEENT: Atraumatic, Normocephaly, Mucus Membranes Moist Neck: No JVD, Normal carotid pulses Cardiac: Other (Irregular rate and rhyth. ) Lungs: Other (Shallow. ) Neuro: Other (Slightly lethargic. ) Abdomen: Soft, Non-Tender Skin: No rashes noted on visualized skin Musculoskeletal: No Chest Wall Tenderness Extremities: No Clubbing, No Cyanosis, No Edema Results 10/26/16 04:40 10/26/16 04:40 Lab Results 10/26/16 10/26/16 04:40 04:40 WBC 13.3 H Hgb 12.0 Hct 38.1 Plt Count 100 L Sodium 136 Potassium 3.6 Chloride 98 Carbon Dioxide 31 H BUN 39 H Creatinine 0.99 Glucose 109 H Calcium 12.5 H Total Bilirubin 2.2 H AST 1539 H ALT 1415 H Alkaline Phosphatase 155 H - Imaging and Cardiology Echo: report reviewed - EKG Interpretation EKG results cardiology: personally reviewed Consult Discharge Plan - Plan Referrals: Vilma Aiken DO [Resident] - 12/22/16 10:30 am (called [phone] this was the earliest they had available)
[2016-10-26] MEDS ORDERED: Permethrin Cream Rinse 60 ML LIQUID TP ONE (22:02)
[2016-10-27] MEDS: Azithromycin 250 MG TABLET PO SCH (06:19)
[2016-10-27] MEDS: *HR* Heparin 5,000 UNIT/ML VIAL SQ SCH ×2 (06:19→16:34)
[2016-10-27 06:55] LABS: Hemoglobin 12.3 g/dL (11.5-15.4); Mean Corpuscular Hemoglobin 26.6 pg (28.0-33.3); Mean Corpuscular Volume 86.8 fL (83.0-100.0)
[2016-10-27 06:57] LABS: Hematocrit 40.1 % (35.3-44.9); Mean Corpuscular HGB Conc 30.7 g/dL (31.6-35.5); Mean Platelet Volume 11.9 fL (9.4-12.4); Red Blood Count 4.62 M/mcL (3.82-4.97)
[2016-10-27 08:13] LABS: INR 1.4; Prothrombin Time 15.4 Seconds (9.4-12.1)
[2016-10-27 08:21] LABS: Alanine Aminotransferase 911 Units/L (0-55); Albumin 2.4 g/dL (3.5-5.0); Alkaline Phosphatase 138 Units/L (38-126); Aspartate Amino Transferase 560 Units/L (5-34); BUN/Creatinine Ratio 35 (6-26); Blood Urea Nitrogen 30 mg/dL (7-20); Calcium 11.8 mg/dL (8.6-10.8); Carbon Dioxide 34 mEq/L (19-29); Chloride 98 mEq/L (98-109); Globulin 2.5 g/dL (2.4-3.5); Glucose 118 mg/dL (70-99); Osmolality,Calculated 289 (280-300); Potassium 3.6 mEq/L (3.5-4.5); Sodium 136 mEq/L (136-145); Total Protein 4.9 g/dL (6.0-8.3); eGFR For African Americans > 60 (> 60); eGFR For Non-African Americans > 60 (> 60)
[2016-10-27] MEDS: Cholecalciferol (D-3) 1,000 UNIT TABLET PO SCH (08:57)
[2016-10-27] MEDS: Vitamin B Complex/Vit C/Vit E 1 EACH TABLET PO SCH (08:57)
[2016-10-27] MEDS: Folic Acid 1 MG TABLET PO SCH (08:57)
[2016-10-27] MEDS: Furosemide 20 MG/2 ML VIAL IVP SCH (09:00)
--- NOTE | 2016-10-27 09:05 | Nephrology Progress Note ---
Date of Encounter: 10/27/16 Time of Encounter: 08:50 - Assessment and Plan (1) Hypercalcemia Current Visit: Yes Status: Acute Most likely Primary hyperparathyroidism versus malignacy. Calcium slow trend downward. Workup in progress. Acute treatment of elevated calcium is Normal Saline 100cc/hr with concern for fluid overload, will give Lasix 20mg IV daily, both will aid in excretion of urinary calcium. ). NS held due to EF 15%. Intermediate treatment of suspected Primary Hyperparathyroidism, possible adenoma. Will start Sensipar. If no improvement will consider Bisphosphonate. Nuclear scan suspicious for parathyroid adenoma. Recommend consulting ENT Subjective Interval history: States feeling better today, not as SOB. Family in room. Objective - Vital Signs Vital signs: Vital Signs Temp Pulse Resp BP Pulse Ox 10/27/16 07:59 97.6 F 86 16 115/93 96 10/27/16 05:30 79 18 116/89 10/27/16 03:00 88 19 111/91 95 10/27/16 01:30 88 18 111/91 10/26/16 23:00 86 20 107/88 95 10/26/16 22:15 97 10/26/16 20:40 83 19 112/91 97 10/26/16 15:14 97.4 F L 96 22 122/101 96 10/26/16 11:35 97.4 F L 87 20 128/97 95 Intake and Output 10/26/16 10/27/16 10/27/16 23:59 07:59 15:59 Intake Total 101.5 / 101.5 0 / 0 Output Total 0 / 0 Balance 101.5 / 101.5 0 / 0 Intake: IV Fluids 101.5 / 101.5 AquaMephyton 5 MG In 0.9 50.5 / 50.5 % Sodium Chloride 50 ML @ 100 mls/hr IVPB ONCE ONE Rx#:[id number] Vitamin B-1 100 MG In 51 / 51 Dextrose 5% 50 ML @ 50 mls/hr IVPB ONCE ONE Rx#: [id number] Oral 0 / 0 0 / 0 Output: Urine 0 / 0 Other: # Voids 1 # Urine Diapers 1 Weight 68.4 kg Patient Weight 10/27/16 23:59 Weight 68.4 kg EENT: Present: mucous membranes moist Neck: Present: no JVD Cardiology: Present: edema, regular rate, regular rhythm Additional Comments: mild pitting Gastrointestinal: Present: normoactive bowel sounds, no tenderness, no guarding Integumentary: Present: warm and dry Neurologic: Present: alert and oriented x3 Psychiatric: Present: mood/affect appropriate, cooperative - Lab 10/27/16 06:15 10/27/16 08:00 Most recent lab results Calcium 11.8 mg/dL (8.6-10.8) H 10/27/16 08:00 Phosphorus 3.0 mg/dL (2.3-4.7) 10/25/16 16:00 Magnesium 1.8 mg/dL (1.6-2.6) 10/25/16 00:58 - VTE Documentation of Mechanical Device: Intermittent pneumatic compression device Consult Discharge Plan - Plan Referrals: Vilma Aiken DO [Resident] - 12/22/16 10:30 am (called [phone] this was the earliest they had available)
--- NOTE | 2016-10-27 10:01 | Cardiology Progress Note ---
Date of Encounter: 10/27/16 Time of Encounter: 09:57 Assessment and Plan (1) Atrial fibrillation Current Visit: Yes Status: Acute New AF in setting of alcoholism and CMP. INR 2.4>1.4 due to liver dysfunction may not be good coumadin candidate BB for HR control Qualifiers: Atrial fibrillation type: unspecified Qualified Code(s): I48.91 - Unspecified atrial fibrillation (2) Cardiomyopathy Current Visit: Yes Status: Acute Severe CMP, LVEF 15% in setting of alcohol abuse for many years Associated elevated LFTs/INR - likely related to alcoholic cirrhosis BP stable Recommend BB/lisinopril. continue low dose lasix - 20 mg IV daily. Consider R/LHC once medically stable. Poor prognonsis. Findings and plan discussed with patient and family. Qualifiers: Cardiomyopathy type: alcoholic Qualified Code(s): I42.6 - Alcoholic cardiomyopathy Discussion w patient/family: The assessment and plan as outlined above was discussed with the patient and/or family members who expressed understanding and agreement. All questions were answered. Thank you for involving us in the care of your patient. Please call with any questions. Subjective Principal diagnosis: cardiomyopathy Interval history: 61 yo F admitted for palpitations and dyspnea with Afib RVR on EKG in ER. with severe cardiomyopathy and EF of 15% in setting of chronic alcohol abuse, elevated LFTS/INR, calcium with mild troponin elevated. Objective Vital Signs, Last 4 Hours Temp Pulse Resp BP Pulse Ox 10/27/16 09:00 96 10/27/16 07:59 97.6 F 86 16 115/93 96 General: Conversant, No Apparent Distress HEENT: Atraumatic, Normocephaly, Mucus Membranes Moist Neck: No JVD, Normal carotid pulses Cardiac: Other (irregular) Lungs: Other (diminshed throughout) Neuro: Alert and responsive, No focal deficits noted Abdomen: Soft, Non-Tender Skin: No rashes noted on visualized skin Musculoskeletal: No Chest Wall Tenderness Extremities: No Clubbing, No Cyanosis, No Edema, Normal Pulses Results 10/27/16 06:15 10/27/16 08:00 Lab Results 10/27/16 10/27/16 10/27/16 06:15 08:00 08:00 WBC 10.4 Hgb 12.3 Hct 40.1 Plt Count 84 L INR 1.4 Sodium 136 Potassium 3.6 Chloride 98 Carbon Dioxide 34 H BUN 30 H Creatinine 0.86 Glucose 118 H Calcium 11.8 H Total Bilirubin 2.0 H AST 560 H ALT 911 H Alkaline Phosphatase 138 H - VTE Documentation of Mechanical Device: Intermittent pneumatic compression device Consult Discharge Plan - Plan Referrals: Vilma Aiken DO [Resident] - 12/22/16 10:30 am (called [phone] this was the earliest they had available)
--- NOTE | 2016-10-27 11:19 | Internal Med Progress Note ---
<John Hoyos - Last Filed: 10/27/16 19:22> Date of Encounter: 10/27/16 Time of Encounter: 10:00 - Assessment and plan (1) Systolic heart failure Current Visit: Yes Status: Acute Assessment and plan: EF approx 15% on echocardiogram. She has anasarca on exam. IV fluids held. Cardizem drip stopped and very low dose Coreg started. Cardiology following. 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 Qualifiers: Heart failure chronicity: chronic Qualified Code(s): I50.22 - Chronic systolic (congestive) heart failure (2) New onset a-fib Current Visit: Yes Status: Acute Assessment and plan: Continuing low dose Coreg. INR improving, but platelets dropping; will need to monitor closely. Hypotensive today, may need to adjust medications. (3) Pneumonia Current Visit: Yes Status: Acute Assessment and plan: CXR and CT show bilateral infiltrates. Currently on Ceftriaxone and Azithromycin. WBC improving. Follow imaging and clinical course. Qualifiers: Pneumonia type: due to unspecified organism Laterality: bilateral Lung location: unspecified part of lung Qualified Code(s): J18.9 - Pneumonia, unspecified organism (4) Hypercalcemia Current Visit: Yes Status: Acute Assessment and plan: Related to hyperparathyroidism. Slightly better than yesterday. Appreciate nephro input. IV fluids had been stopped per cardiology due to EF 15%, giving 1L bolus due to hypotension. Sensipar started. Lasix given as well. Recheck tomorrow. (5) Hyperparathyroidism Current Visit: Yes Status: Acute Assessment and plan: PTH level elevated with elevated calcium. Vit D level is low though. Parathyroid scan shows increased uptake in L lobe of thyroid c/w adenoma of parathyroid. (6) Abnormal liver enzymes Current Visit: Yes Status: Acute Assessment and plan: Levels have decreased today. Anti smooth muscle antibody ordered. Likely due to hepatic congestion from CHF. Hepatitis studies negative. Recheck tomorrow. (7) Elevated troponin Current Visit: Yes Status: Acute (8) Hepatomegaly Current Visit: Yes Status: Acute (9) Lactic acidosis Current Visit: Yes Status: Resolved Assessment and plan: Lactate decreased with fluids to 1.3 (10) JEET (acute kidney injury) Current Visit: Yes Status: Resolved Assessment and plan: JEET improved today. (11) Coagulopathy Current Visit: Yes Status: Acute Assessment and plan: Related to liver disease but also nutritional part. Vit K given. On subqu heparin. INR 2.4->1.4 Plt ount 146>100>84. Continue to monitor. No signs of active bleeding. Hgb stable in the 12's (12) Moderate protein malnutrition Current Visit: Yes Status: Chronic Assessment and plan: Add supplements. (13) Mass of thyroid region Current Visit: Yes Status: Acute Assessment and plan: Area seen near L thyroid lobe. Does not enhance on parathyroid scan. No other adenopathy. May need FNA/biopsy. (14) CVA (cerebral vascular accident) Current Visit: Yes Status: Suspected Assessment and plan: CT of head suggests perhaps CVA. Continue ASA. No statin due to LFTs. High risk for stroke due to atrial fibrillation and systolic heart failure. Started on heparin. Patient to have Brain MRI today. Qualifiers: CVA mechanism: embolism Precerebral and cerebral artery: anterior cerebral artery Laterality of affected vessel: left Qualified Code(s): I63.422 - Cerebral infarction due to embolism of left anterior cerebral artery (15) Vitamin D deficiency Current Visit: Yes Status: Acute Assessment and plan: Replace (16) History of ETOH abuse Current Visit: Yes Status: Acute Assessment and plan: Prior heavy alcohol use. Thiamine and vitamins added. CIWA discontinued. (17) CHF (congestive heart failure) Current Visit: Yes Status: Acute Qualifiers: Congestive heart failure type: unspecified congestive heart failure type Congestive heart failure chronicity: unspecified congestive heart failure chronicity Qualified Code(s): I50.9 - Heart failure, unspecified (18) Sepsis Current Visit: Yes Status: Acute Assessment and plan: Most likely due to acute pneumonia. Lactate improved, though concern for hypotension. Qualifiers: Sepsis type: sepsis due to unspecified organism Qualified Code(s): A41.9 - Sepsis, unspecified organism - Time Spent With Patient Greater than 35 minutes - Subjective Interval history: Patient seen and examined at bedside. Found to have head lice yesterday, family trimmed patient's hair and she received treatment. She appears more interactive today, talking more. States she feels better overall and is thrilled her labs are improving. Family notes that Ms. Fang' BP has been lower all day, 80/50 on exam. Update: Patient requested something for anxiety prior to brain MRI, she was noted to be lethargic after receiving Ativan; BP stable from the AM and other vitals stable, she responds to painful stimuli with short commands (answer name , squeeze hand, focus with eyes). Nurse noted patient tired,b ut answering questions completely and appropriately prior to medication. Will monitor vitals and mentation closely. MRI pending. Signoff discussed with Dr. Andino. - Constitutional Vitals: Temp Pulse Resp BP Pulse Ox 97.6 F 86 16 115/93 96 10/27/16 07:59 10/27/16 07:59 10/27/16 07:59 10/27/16 07:59 10/27/16 09:00 General appearance: Present: cooperative, pleasant, no acute distress, answers questions appropriately (Patient's fixates on topic/story, provides partial responses to questioning at times.) - Head Head exam: Present: atraumatic, normocephalic - Eye Eye exam: Present: conjuntiva pink, sclera anicteric - ENT ENT exam: Present: mucous membranes dry - Neck Additional comments: Mobile structure felt on L neck - consistent with CT - Respiratory Respiratory exam: Present: decreased breath sounds, rhonchi - Cardiovascular Cardiovascular exam: Present: irregular rhythm - GI/Abdominal GI/Abdominal exam: Present: hepatomegaly, soft - Extremities Exam Extremities exam: Present: pedal edema (trace-1+ BLE edema), warm - Neurological Exam Neurological exam: Present: alert, altered - Skin Skin exam: Present: dry, normal color. Absent: cyanosis, rash Internal Medicine: Result - Labs CBC & Chem 7: 10/27/16 06:15 10/27/16 08:00 Labs: Short CBC 10/27/16 Range/Units 06:15 WBC 10.4 (4.3-11.1) K/mcL Hgb 12.3 (11.5-15.4) g/dL Hct 40.1 (35.3-44.9) % Plt Count 84 L (140-400) K/mcL BMP 10/27/16 08:00 Sodium 136 Potassium 3.6 Chloride 98 Carbon Dioxide 34 H BUN 30 H Creatinine 0.86 Glucose 118 H Calcium 11.8 H Liver Function 10/27/16 Range/Units 08:00 Total Bilirubin 2.0 H (0.2-1.2) mg/dL AST 560 H (5-34) Units/L ALT 911 H (0-55) Units/L Alkaline Phosphatase 138 H (38-126) Units/L Albumin 2.4 L (3.5-5.0) g/dL - ABG Interpretation ABG results: PT/INR, D-dimer PT 15.4 Seconds (9.4-12.1) H 10/27/16 08:00 - Impressions Impressions Parathyroid Scan Nuclear Medicine 10/25/16 18:46 IMPRESSION: Asymmetric activity at the left thyroid bed is suspicious for parathyroid adenoma in the appropriate clinical setting. D/ / Endy Torres MD / Endy Torres MD Interpreting Provider: Endy Torres MD Head CT 10/26/16 10:45 IMPRESSION: 1. Subtle low attenuation within the left frontal and parietal lobes. This may be secondary to small vessel ischemic disease but a developing acute infarct cannot be excluded. I would suggest further evaluation with MRI. D/ / Felix Riley MD / Felix Riley MD Interpreting Provider: Felix Riley MD Soft Tissue Neck CT 10/26/16 10:45 IMPRESSION: 1. 1.1 x 2 cm ovoid soft tissue nodule posterior inferior to the left thyroid lobe may represent an enlarged lymph node. Additional consideration includes a parathyroid adenoma. 2. No evidence of additional cervical lymphadenopathy or cervical soft tissue mass. 3. Left upper lobe airspace opacity suspicious for pneumonia. At least moderate to large right-sided pleural effusion. D/ / 10/26/2016 12:03:46 Cora Munoz MD / juan Interpreting Provider: Cora Munoz MD - VTE Documentation of Mechanical Device: Intermittent pneumatic compression device Consult Discharge Plan - Plan Instructions: Atrial Fibrillation (DC) Referrals: Vilma Aiken DO [Resident] - 12/22/16 10:30 am (called [phone] this was the earliest they had available) <Parth Watson - Last Filed: 10/28/16 17:10> Date of Encounter: 10/27/16 - Assessment and plan (1) Systolic heart failure Current Visit: Yes Status: Acute Qualifiers: Heart failure chronicity: acute on chronic Qualified Code(s): I50.23 - Acute on chronic systolic (congestive) heart failure (2) Atrial fibrillation Current Visit: Yes Status: Acute Qualifiers: Atrial fibrillation type: persistent Qualified Code(s): I48.1 - Persistent atrial fibrillation (3) Pneumonia Current Visit: Yes Status: Acute Qualifiers: Pneumonia type: due to unspecified organism Laterality: bilateral Lung location: unspecified part of lung Qualified Code(s): J18.9 - Pneumonia, unspecified organism (4) Hypercalcemia Current Visit: Yes Status: Acute (5) Hyperparathyroidism, primary Current Visit: Yes Status: Acute (6) JEET (acute kidney injury) Current Visit: Yes Status: Resolved (7) Abnormal liver enzymes Current Visit: Yes Status: Acute (8) Lactic acidosis Current Visit: Yes Status: Resolved (9) Sepsis Current Visit: Yes Status: Resolved Qualifiers: Sepsis type: sepsis due to unspecified organism Qualified Code(s): A41.9 - Sepsis, unspecified organism (10) Coagulopathy Current Visit: Yes Status: Acute (11) Moderate protein malnutrition Current Visit: Yes Status: Chronic (12) Mass of thyroid region Current Visit: Yes Status: Acute (13) CVA (cerebral vascular accident) Current Visit: Yes Status: Ruled-out Qualifiers: CVA mechanism: embolism Precerebral and cerebral artery: anterior cerebral artery Laterality of affected vessel: left Qualified Code(s): I63.422 - Cerebral infarction due to embolism of left anterior cerebral artery (14) Vitamin D deficiency Current Visit: Yes Status: Acute (15) History of ETOH abuse Current Visit: Yes Status: Acute - Constitutional Vitals: Temp Pulse Resp BP Pulse Ox 98.1 F 91 16 130/88 97 10/28/16 15:54 10/28/16 15:54 10/28/16 15:54 10/28/16 15:54 10/28/16 15:54 Internal Medicine: Result - Labs CBC & Chem 7: 10/28/16 05:26 10/28/16 05:26 Labs: Short CBC 10/28/16 Range/Units 05:26 WBC 9.6 (4.3-11.1) K/mcL Hgb 12.1 (11.5-15.4) g/dL Hct 38.9 (35.3-44.9) % Plt Count 105 L (140-400) K/mcL Neutrophils # 7.5 (1.6-8.9) K/mcL BMP 10/28/16 05:26 Sodium 137 Potassium 3.7 Chloride 99 Carbon Dioxide 33 H BUN 29 H Creatinine 0.81 Glucose 95 Calcium 10.8 Liver Function 10/28/16 Range/Units 05:26 Total Bilirubin 1.8 H (0.2-1.2) mg/dL AST 368 H (5-34) Units/L ALT 691 H (0-55) Units/L Alkaline Phosphatase 133 H (38-126) Units/L Albumin 2.3 L (3.5-5.0) g/dL - ABG Interpretation ABG results: PT/INR, D-dimer PT 14.1 Seconds (9.4-12.1) H 10/28/16 05:26 - Impressions Impressions Brain MRI 10/27/16 14:20 IMPRESSION: No acute infarct. D/ / Lc Rosas MD / Lc Rosas MD Interpreting Provider: Lc Rosas MD - Attending Attestation I examined this patient and my medical decision-making was reviewed with the Resident Physician on 10/27/16. I agree with the documented findings, disposition and treatment plan as described except to the extent set forth below. Ms. Cook is currently admitted for multiple medical issues most concerning is acute systolic heart failure. She is high risk due to multiple medical issues and potential for worsening cardiac status. Ms. Cook is beginning to feel a little better. She is to have MRI today. Denies pain. No fever or chills. No cough. Exam Alert. Comfortable Heart reg No wheeze I/P 1. CHF 2. A fib Further diagnoses and plan as above.
[2016-10-27] MEDS ORDERED: *HR* LORazepam 2 MG/ML VIAL IVP ONE (14:22)
[2016-10-27] MEDS ORDERED: 0.9 % Sodium Chloride 500 ML IVC ONE (14:47)
[2016-10-27] MEDS ORDERED: 0.9 % Sodium Chloride 500 ML ONE (16:04)
[2016-10-28] MEDS: Azithromycin 250 MG TABLET PO SCH (05:17)
[2016-10-28] MEDS: *HR* Heparin 5,000 UNIT/ML VIAL SQ SCH ×2 (05:17→22:33)
[2016-10-28 05:56] LABS: INR 1.3; Prothrombin Time 14.1 Seconds (9.4-12.1)
[2016-10-28 05:59] LABS: Basophils % 0.1 %; Eosinophils # 0.2 K/mcL (0.0-0.6); Eosinophils % 1.8 %; Hematocrit 38.9 % (35.3-44.9); Hemoglobin 12.1 g/dL (11.5-15.4); Immature Granulocytes % 0.5 % (0-4); Lymphocytes # 1.1 K/mcL (0.6-4.6); Lymphocytes % 11.8 %; Mean Corpuscular HGB Conc 31.1 g/dL (31.6-35.5); Mean Corpuscular Hemoglobin 27.3 pg (28.0-33.3); Mean Corpuscular Volume 87.6 fL (83.0-100.0); Mean Platelet Volume 11.7 fL (9.4-12.4); Monocytes # 0.8 K/mcL (0.0-1.3); Monocytes % 8.3 %; Neutrophils # 7.5 K/mcL (1.6-8.9); Platelet Count 105 K/mcL (140-400); Red Blood Count 4.44 M/mcL (3.82-4.97); Segmented Neutrophils % 77.5 %
[2016-10-28 06:07] LABS: Alanine Aminotransferase 691 Units/L (0-55); Albumin 2.3 g/dL (3.5-5.0); Albumin/Globulin Ratio 0.9 (1.1-2.2); Alkaline Phosphatase 133 Units/L (38-126); Aspartate Amino Transferase 368 Units/L (5-34); BUN/Creatinine Ratio 36 (6-26); Bilirubin,Total 1.8 mg/dL (0.2-1.2); Blood Urea Nitrogen 29 mg/dL (7-20); Calcium 10.8 mg/dL (8.6-10.8); Carbon Dioxide 33 mEq/L (19-29); Chloride 99 mEq/L (98-109); Globulin 2.5 g/dL (2.4-3.5); Glucose 95 mg/dL (70-99); Osmolality,Calculated 290 (280-300); Potassium 3.7 mEq/L (3.5-4.5); Sodium 137 mEq/L (136-145); Total Protein 4.8 g/dL (6.0-8.3); eGFR For African Americans > 60 (> 60); eGFR For Non-African Americans > 60 (> 60)
[2016-10-28] MEDS: Cholecalciferol (D-3) 1,000 UNIT TABLET PO SCH (09:06)
[2016-10-28] MEDS: Folic Acid 1 MG TABLET PO SCH (09:06)
[2016-10-28] MEDS: Vitamin B Complex/Vit C/Vit E 1 EACH TABLET PO SCH (09:06)
[2016-10-28] MEDS: Furosemide 20 MG/2 ML VIAL IVP SCH (09:06)
--- NOTE | 2016-10-28 10:19 | Internal Med Progress Note ---
<John Hoyos - Last Filed: 10/28/16 15:19> Date of Encounter: 10/28/16 Time of Encounter: 09:40 - Assessment and plan (1) Systolic heart failure Current Visit: Yes Status: Acute Assessment and plan: EF approx 15% on echocardiogram. Cardiology following. Etiology of heart failure could be vp strategic planning ETOH versus other. Planning for [facility] Monday after family is present. Qualifiers: Heart failure chronicity: chronic Qualified Code(s): I50.22 - Chronic systolic (congestive) heart failure (2) New onset a-fib Current Visit: Yes Status: Acute Assessment and plan: Continuing low dose Coreg. INR improving from 2.4>1.3 HR currently in the 90s. (3) Pneumonia Current Visit: Yes Status: Acute Assessment and plan: CXR and CT show bilateral infiltrates. Currently on Ceftriaxone and Azithromycin (day 3 of 5). Blood culture pending, prelim negative. WBC improving. Follow imaging and clinical course. Qualifiers: Pneumonia type: due to unspecified organism Laterality: bilateral Lung location: unspecified part of lung Qualified Code(s): J18.9 - Pneumonia, unspecified organism (4) Hypercalcemia Current Visit: Yes Status: Acute Assessment and plan: Related to hyperparathyroidism. Slightly better than yesterday. Appreciate nephro input. IV fluids had been stopped per cardiology due to EF 15%, gave 1L bolus yesterday due to hypotension. Sensipar started. Lasix given initially. Continue to monitor. (5) Hyperparathyroidism Current Visit: Yes Status: Acute Assessment and plan: PTH level elevated with elevated calcium. Vit D level is low though. Parathyroid scan shows increased uptake in L lobe of thyroid c/w adenoma of parathyroid. Will need ENT referral. (6) Abnormal liver enzymes Current Visit: Yes Status: Acute Assessment and plan: Levels continue to improve. Anti smooth muscle antibody ordered. Likely due to hepatic congestion from CHF. Hepatitis studies negative. Cont to monitor (7) Elevated troponin Current Visit: Yes Status: Acute Assessment and plan: Adynamic elevated troponin at 0.23 and 0.22. Likely secondary to demand ischemia with A fib and CHF Continue to monitor. (8) Hepatomegaly Current Visit: Yes Status: Acute Assessment and plan: Liver US negative for acute findings. Liver enzymes continue to improve. (9) Lactic acidosis Current Visit: Yes Status: Resolved Assessment and plan: Lactate decreased with fluids to 1.3 (10) JEET (acute kidney injury) Current Visit: Yes Status: Resolved Assessment and plan: JEET resolved. Creatinine continues to improve. (11) Coagulopathy Current Visit: Yes Status: Acute Assessment and plan: Related to liver disease but also nutritional part. Vit K given. On subqu heparin. INR 2.4>1.4>1.3 Plt ount 146>100>84>105. Continue to monitor. No signs of active bleeding. Hgb stable in the 12's (12) Moderate protein malnutrition Current Visit: Yes Status: Chronic Assessment and plan: Add supplements. (13) Mass of thyroid region Current Visit: Yes Status: Acute Assessment and plan: Area seen near L thyroid lobe. Asymmetric activity seen on parathroid scan at the left thyroid ed suspicious for parathyroid adenoma in the approp (14) CVA (cerebral vascular accident) Current Visit: Yes Status: Ruled-out Assessment and plan: CT of head suggests perhaps CVA. Continue ASA. No statin due to LFTs. High risk for stroke due to atrial fibrillation and systolic heart failure. Started on heparin. MRI negative for acute infarct- will discuss anticoagulation needs. Qualifiers: CVA mechanism: embolism Precerebral and cerebral artery: anterior cerebral artery Laterality of affected vessel: left Qualified Code(s): I63.422 - Cerebral infarction due to embolism of left anterior cerebral artery (15) Vitamin D deficiency Current Visit: Yes Status: Acute Assessment and plan: Replace (16) History of ETOH abuse Current Visit: Yes Status: Acute Assessment and plan: Prior heavy alcohol use. Thiamine and vitamins added. CIWA discontinued. - Subjective Interval history: Patient seen and examined at bedside. She appears very interactive today, talking even more. States she feels better overall and is thrilled her labs are improving. No complaints currently. - Constitutional Vitals: Temp Pulse Resp BP Pulse Ox 96.1 F L 99 14 113/69 97 10/28/16 08:07 10/28/16 08:07 10/28/16 08:07 10/28/16 08:07 10/28/16 09:00 General appearance: Present: cooperative, pleasant, no acute distress, answers questions appropriately (Patient's fixates on topic/story, provides partial responses to questioning at times.) - Head Head exam: Present: atraumatic, normocephalic - Eye Eye exam: Present: conjuntiva pink, sclera anicteric - ENT ENT exam: Present: mucous membranes dry - Respiratory Respiratory exam: Present: rales, rhonchi - Cardiovascular Cardiovascular exam: Present: irregular rhythm - GI/Abdominal GI/Abdominal exam: Present: soft, tenderness (mild diffuse). Absent: firm, guarding - Extremities Exam Extremities exam: Present: pedal edema (trace BLE), warm. Absent: cyanotic - Neurological Exam Neurological exam: Present: alert, altered - Skin Skin exam: Present: dry, normal color. Absent: cyanosis, rash Internal Medicine: Result - Labs CBC & Chem 7: 10/28/16 05:26 10/28/16 05:26 Labs: Short CBC 10/28/16 Range/Units 05:26 WBC 9.6 (4.3-11.1) K/mcL Hgb 12.1 (11.5-15.4) g/dL Hct 38.9 (35.3-44.9) % Plt Count 105 L (140-400) K/mcL Neutrophils # 7.5 (1.6-8.9) K/mcL BMP 10/28/16 05:26 Sodium 137 Potassium 3.7 Chloride 99 Carbon Dioxide 33 H BUN 29 H Creatinine 0.81 Glucose 95 Calcium 10.8 Liver Function 10/28/16 Range/Units 05:26 Total Bilirubin 1.8 H (0.2-1.2) mg/dL AST 368 H (5-34) Units/L ALT 691 H (0-55) Units/L Alkaline Phosphatase 133 H (38-126) Units/L Albumin 2.3 L (3.5-5.0) g/dL - ABG Interpretation ABG results: PT/INR, D-dimer PT 14.1 Seconds (9.4-12.1) H 10/28/16 05:26 - Impressions Impressions Brain MRI 10/27/16 14:20 IMPRESSION: No acute infarct. D/ / Lc Rosas MD / Lc Rosas MD Interpreting Provider: Lc Rosas MD - VTE Documentation of Mechanical Device: Intermittent pneumatic compression device Consult Discharge Plan - Plan Instructions: Atrial Fibrillation (DC) Referrals: Vilma Aiken DO [Resident] - 12/22/16 10:30 am (called [phone] this was the earliest they had available) <Parth Watson - Last Filed: 10/28/16 18:58> Date of Encounter: 10/28/16 - Assessment and plan (1) Systolic heart failure Current Visit: Yes Status: Acute Qualifiers: Heart failure chronicity: acute on chronic Qualified Code(s): I50.23 - Acute on chronic systolic (congestive) heart failure (2) Atrial fibrillation Current Visit: Yes Status: Acute Qualifiers: Atrial fibrillation type: persistent Qualified Code(s): I48.1 - Persistent atrial fibrillation (3) Pneumonia Current Visit: Yes Status: Acute Qualifiers: Pneumonia type: due to unspecified organism Laterality: bilateral Lung location: unspecified part of lung Qualified Code(s): J18.9 - Pneumonia, unspecified organism (4) Hypercalcemia Current Visit: Yes Status: Acute (5) Hyperparathyroidism, primary Current Visit: Yes Status: Acute (6) JEET (acute kidney injury) Current Visit: Yes Status: Resolved (7) Abnormal liver enzymes Current Visit: Yes Status: Acute (8) Lactic acidosis Current Visit: Yes Status: Resolved (9) Sepsis Current Visit: Yes Status: Resolved Qualifiers: Sepsis type: sepsis due to unspecified organism Qualified Code(s): A41.9 - Sepsis, unspecified organism (10) Coagulopathy Current Visit: Yes Status: Acute (11) Moderate protein malnutrition Current Visit: Yes Status: Chronic (12) Mass of thyroid region Current Visit: Yes Status: Acute (13) CVA (cerebral vascular accident) Current Visit: Yes Status: Ruled-out Qualifiers: CVA mechanism: embolism Precerebral and cerebral artery: anterior cerebral artery Laterality of affected vessel: left Qualified Code(s): I63.422 - Cerebral infarction due to embolism of left anterior cerebral artery (14) Vitamin D deficiency Current Visit: Yes Status: Acute (15) History of ETOH abuse Current Visit: Yes Status: Acute - Constitutional Vitals: Temp Pulse Resp BP Pulse Ox 98.1 F 91 16 130/88 97 10/28/16 15:54 10/28/16 15:54 10/28/16 15:54 10/28/16 15:54 10/28/16 15:54 Internal Medicine: Result - Labs CBC & Chem 7: 10/28/16 05:26 10/28/16 05:26 Labs: Short CBC 10/28/16 Range/Units 05:26 WBC 9.6 (4.3-11.1) K/mcL Hgb 12.1 (11.5-15.4) g/dL Hct 38.9 (35.3-44.9) % Plt Count 105 L (140-400) K/mcL Neutrophils # 7.5 (1.6-8.9) K/mcL BMP 10/28/16 05:26 Sodium 137 Potassium 3.7 Chloride 99 Carbon Dioxide 33 H BUN 29 H Creatinine 0.81 Glucose 95 Calcium 10.8 Liver Function 10/28/16 Range/Units 05:26 Total Bilirubin 1.8 H (0.2-1.2) mg/dL AST 368 H (5-34) Units/L ALT 691 H (0-55) Units/L Alkaline Phosphatase 133 H (38-126) Units/L Albumin 2.3 L (3.5-5.0) g/dL - ABG Interpretation ABG results: PT/INR, D-dimer PT 14.1 Seconds (9.4-12.1) H 10/28/16 05:26 - Impressions Impressions Brain MRI 10/27/16 14:20 IMPRESSION: No acute infarct. D/ / Lc Rosas MD / Lc Rosas MD Interpreting Provider: Lc Rosas MD - Attending Attestation I examined this patient and my medical decision-making was reviewed with the Resident Physician on 10/28/16. I agree with the documented findings, disposition and treatment plan as described except to the extent set forth below. Ms. Cook is currently admitted for multiple medical issues including acute systolic heart failure. She is high risk due to potential for worsening cardiac status. Ms. Cook is feeling OK. She has no new issues today. She is planning for cardiac cath on Monday. No CP. No fever or chills. Exam Alert. Comfortable Heart irreg Lungs with rales I/P 1. CHF 2. Hypoxia 3. hypercalcemia Further diagnoses and plan as above.
--- NOTE | 2016-10-28 10:45 | Nephrology Progress Note ---
Date of Encounter: 10/28/16 Time of Encounter: 10:20 - Assessment and Plan (1) Hypercalcemia Current Visit: Yes Status: Acute Most likely Primary hyperparathyroidism versus malignacy. Calcium improving. Workup in progress. Acute treatment of elevated calcium is Normal Saline 100cc/ hr with concern for fluid overload, will give Lasix 20mg IV daily, both will aid in excretion of urinary calcium. ). NS held due to EF 15%. Alf treatment of suspected Primary Hyperparathyroidism, possible adenoma. Will start Sensipar. If no improvement will consider Bisphosphonate. Nuclear scan suspicious for parathyroid adenoma. Recommend consulting ENT. Lymphadenopathy on Chest CT, will need pulmonary to weigh in at somepoint. Subjective Principal diagnosis: cardiomyopathy Interval history: States feeling better today, not as SOB. Family in room. Eating breakfast. Objective - Vital Signs Vital signs: Vital Signs Temp Pulse Resp BP Pulse Ox 10/28/16 09:00 97 10/28/16 08:07 96.1 F L 99 14 113/69 97 10/27/16 21:25 89 10/27/16 20:00 88 14 93/79 95 10/27/16 16:57 84/65 10/27/16 16:38 77 20 79/44 97 10/27/16 15:56 96 F L 89 89/48 10/27/16 15:44 94.8 F L 84 16 78/57 96 10/27/16 12:10 97.7 F 88 16 79/65 96 Intake and Output 10/27/16 10/28/16 10/28/16 23:59 07:59 15:59 Intake Total 100 / 100 Balance 100 / 100 Intake: IV Fluids 100 / 100 Rocephin 1,000 MG In 100 / 100 Dextrose 5% (Minibag+) 100 ML 100 ML @ 200 mls/ hr IVPB Q24H [facility] Rx#: [id number] Other: Blood Glucose* 149 - General Appearance General appearance: Present: well-developed, well-nourished, appears started age EENT: Present: mucous membranes moist Neck: Present: no JVD Respiratory: Present: clear Cardiology: Present: edema, regular rate, regular rhythm Additional Comments: mild Gastrointestinal: Present: normoactive bowel sounds, no tenderness, distended Integumentary: Present: warm and dry Neurologic: Present: alert and oriented x3 Psychiatric: Present: mood/affect appropriate, cooperative - Lab 05/19/17 05:26 10/28/16 05:26 Most recent lab results Calcium 10.8 mg/dL (8.6-10.8) 10/28/16 05:26 Phosphorus 3.0 mg/dL (2.3-4.7) 10/25/16 16:00 Magnesium 1.8 mg/dL (1.6-2.6) 10/25/16 00:58 - VTE Documentation of Mechanical Device: Intermittent pneumatic compression device Consult Discharge Plan - Plan Instructions: Atrial Fibrillation (DC) Referrals: Vilma Aiken DO [Resident] - 12/22/16 10:30 am (called [phone] this was the earliest they had available)
--- NOTE | 2016-10-28 13:36 | Cardiology Progress Note ---
Date of Encounter: 10/28/16 Time of Encounter: 13:32 Assessment and Plan (1) CHF (congestive heart failure) Current Visit: Yes Status: Acute TTE revealed EF 10%. New acute systolic heart failure. Currently with mild fluid overload. Nephrology started IV Lasix. Strict I&O and daily weights. Give extra dose of lasix today. Appreciate nephrology input. LHC was recommended once patient was stable. Kidney function has returned to normal. INR has normalized. She is able to lay flat with no distress. I discussed LHC indication, risks, benefits, and alternatives. She declines LHC at this time. Apparently percent as driving in from [place]. She would also like her sister here lives in [place] and one in [place]. I discussed with niece. We will plan for left heart catheterization on Monday. Qualifiers: Congestive heart failure type: unspecified congestive heart failure type Congestive heart failure chronicity: unspecified congestive heart failure chronicity Qualified Code(s): I50.9 - Heart failure, unspecified (2) Elevated troponin Current Visit: Yes Status: Acute Flat adynamic troponin elevation. o.23, 0.22, Likely secondary to A fib with RVR and acute systolic CHF. Denies chest pain. (3) Atrial fibrillation Current Visit: Yes Status: Acute New AF in setting of alcoholism and CMP. INR 2.4 on admission without anticoagulation. likely d/t liver disease. Not a candidate for anticoagulation. Asa only. Continue bb for rate control. HR 80-90 currently. Avg HR 92 bpm. Qualifiers: Atrial fibrillation type: unspecified Qualified Code(s): I48.91 - Unspecified atrial fibrillation Discussion w patient/family: The assessment and plan as outlined above was discussed with the patient and/or family members who expressed understanding and agreement. All questions were answered. Thank you for involving us in the care of your patient. Please call with any questions. Subjective Principal diagnosis: cardiomyopathy Objective Vital Signs, Last 4 Hours Temp Pulse Resp BP Pulse Ox 10/28/16 12:06 97.4 F L 97 16 107/84 96 Results 10/28/16 05:26 10/28/16 05:26 Lab Results 10/28/16 10/28/16 10/28/16 05:26 05:26 05:26 WBC 9.6 Hgb 12.1 Hct 38.9 Plt Count 105 L INR 1.3 Sodium 137 Potassium 3.7 Chloride 99 Carbon Dioxide 33 H BUN 29 H Creatinine 0.81 Glucose 95 Calcium 10.8 Total Bilirubin 1.8 H AST 368 H ALT 691 H Alkaline Phosphatase 133 H - VTE Documentation of Mechanical Device: Intermittent pneumatic compression device Consult Discharge Plan - Plan Instructions: Atrial Fibrillation (DC) Referrals: Vilma Aiken DO [Resident] - 12/22/16 10:30 am (called [phone] this was the earliest they had available)
[2016-10-28] MEDS ORDERED: Furosemide 20 MG/2 ML VIAL IVP ONE (13:42)
[2016-10-29] MEDS: *HR* Heparin 5,000 UNIT/ML VIAL SQ SCH ×3 (05:16→20:51)
[2016-10-29] MEDS: Azithromycin 250 MG TABLET PO SCH (05:16)
[2016-10-29 08:15] LABS: Alanine Aminotransferase 610 Units/L (0-55); Albumin 2.5 g/dL (3.5-5.0); Albumin/Globulin Ratio 0.8 (1.1-2.2); Alkaline Phosphatase 161 Units/L (38-126); Aspartate Amino Transferase 284 Units/L (5-34); BUN/Creatinine Ratio 30 (6-26); Bilirubin,Total 1.7 mg/dL (0.2-1.2); Blood Urea Nitrogen 23 mg/dL (7-20); Calcium 11.1 mg/dL (8.6-10.8); Carbon Dioxide 33 mEq/L (19-29); Chloride 97 mEq/L (98-109); Glucose 108 mg/dL (70-99); Osmolality,Calculated 286 (280-300); Potassium 3.5 mEq/L (3.5-4.5); Sodium 136 mEq/L (136-145); Total Protein 5.5 g/dL (6.0-8.3); eGFR For African Americans > 60 (> 60); eGFR For Non-African Americans > 60 (> 60)
--- NOTE | 2016-10-29 08:38 | Nephrology Progress Note ---
Date of Encounter: 10/29/16 Time of Encounter: 08:10 - Assessment and Plan (1) Hypercalcemia Current Visit: Yes Status: Acute Most likely Primary hyperparathyroidism versus malignacy. Calcium increased 11.1 Workup in progress. Acute treatment of elevated calcium is Normal Saline 100cc/hr with concern for fluid overload, will give Lasix 20mg IV daily, both will aid in excretion of urinary calcium. ). NS held due to EF 15%. Definitive treatment is for ENT to remove parathyroid adenoma. Will increase Sensipar. If no improvement will consider Bisphosphonate. Recommend consulting ENT. Lymphadenopathy on Chest CT, will need pulmonary to weigh in at somepoint. Subjective Principal diagnosis: cardiomyopathy Interval history: States feeling better today, not as SOB. Family in room. Eating breakfast. Objective - Vital Signs Vital signs: Vital Signs Temp Pulse Resp BP Pulse Ox 10/29/16 07:53 94.7 F L 86 16 103/94 98 10/29/16 05:29 96.7 F L 95 18 115/98 97 10/29/16 01:16 97.7 F 90 20 104/82 92 10/29/16 00:02 97.7 F 87 12 119/76 96 10/28/16 21:40 97.4 F L 92 16 95/76 95 10/28/16 20:09 95 10/28/16 15:54 98.1 F 91 16 130/88 97 10/28/16 12:06 97.4 F L 97 16 107/84 96 10/28/16 09:00 97 Intake and Output 10/28/16 10/29/16 10/29/16 23:59 07:59 15:59 Intake Total 0 / 0 Balance 0 / 0 Intake: Oral 0 / 0 Other: # Voids 0 # Urine Diapers 1 Weight 69.4 kg Patient Weight 10/29/16 23:59 Weight 69.4 kg - General Appearance General appearance: Present: well-developed, well-nourished, appears started age EENT: Present: mucous membranes moist Neck: Present: no JVD Additional Comments: fine bibasilar crackles Cardiology: Present: edema, irregular rhythm Additional Comments: mild LE edema Gastrointestinal: Present: normoactive bowel sounds, no tenderness, distended Integumentary: Present: warm and dry Neurologic: Present: alert and oriented x3 Psychiatric: Present: mood/affect appropriate, cooperative - Lab 10/28/16 05:26 10/29/16 07:56 Most recent lab results Calcium 11.1 mg/dL (8.6-10.8) H 10/29/16 07:56 Phosphorus 3.0 mg/dL (2.3-4.7) 10/25/16 16:00 Magnesium 1.8 mg/dL (1.6-2.6) 10/25/16 00:58 - VTE Documentation of Mechanical Device: Intermittent pneumatic compression device Consult Discharge Plan - Plan Instructions: Atrial Fibrillation (DC) Referrals: Vilma Aiken DO [Resident] - 12/22/16 10:30 am (called [phone] this was the earliest they had available)
[2016-10-29] MEDS: Furosemide 20 MG/2 ML VIAL IVP SCH (10:20)
[2016-10-29] MEDS: Cholecalciferol (D-3) 1,000 UNIT TABLET PO SCH (10:21)
[2016-10-29] MEDS: Folic Acid 1 MG TABLET PO SCH (10:21)
[2016-10-29] MEDS: Vitamin B Complex/Vit C/Vit E 1 EACH TABLET PO SCH (10:21)
[2016-10-29 11:22] LABS: Smooth Muscle Ab Titer IgG 1:20 (<1:20)
--- NOTE | 2016-10-29 12:06 | Internal Med Progress Note ---
Date of Encounter: 10/29/16 Time of Encounter: 09:30 - Assessment and plan (1) Systolic heart failure Current Visit: Yes Status: Acute Assessment and plan: EF 15%. Currently on Coreg and lisinopril. Dose of coreg increased some today. Plan for cardiac cath Monday when family is here. Qualifiers: Heart failure chronicity: acute on chronic Qualified Code(s): I50.23 - Acute on chronic systolic (congestive) heart failure (2) Atrial fibrillation Current Visit: Yes Status: Acute Assessment and plan: Rate controlled on Coreg. Not on full anticoagulation at this time. Qualifiers: Atrial fibrillation type: persistent Qualified Code(s): I48.1 - Persistent atrial fibrillation (3) Pneumonia Current Visit: Yes Status: Acute Assessment and plan: PA and Lat CXR this AM shows improving infiltrates and slightly worse R pleural effusion. Will continue full course of abx. Qualifiers: Pneumonia type: due to unspecified organism Laterality: bilateral Lung location: unspecified part of lung Qualified Code(s): J18.9 - Pneumonia, unspecified organism (4) Hypercalcemia Current Visit: Yes Status: Acute Assessment and plan: Calcium remains elevated. Sensipar increased today. Unable to receive IV fluids due to EF. Appears to have parathyroid adenoma but not surgical candidate at this time due to cardiac status. (5) Hyperparathyroidism, primary Current Visit: Yes Status: Acute Assessment and plan: Ultimately needs eval for parathyroid surgery but not a candidate right now till cardiac status stabilized. (6) Abnormal liver enzymes Current Visit: Yes Status: Acute Assessment and plan: Continues to slowly improve. Most likely related to hepatic congestion from CHF. (7) Coagulopathy Current Visit: Yes Status: Acute Assessment and plan: Improving with improvement in liver function. (8) Moderate protein malnutrition Current Visit: Yes Status: Chronic Assessment and plan: Supplements. (9) Mass of thyroid region Current Visit: Yes Status: Acute Assessment and plan: Area seen near L thyroid lobe. Asymmetric activity seen on parathroid scan at the left thyroid ed suspicious for parathyroid adenoma i (10) Vitamin D deficiency Current Visit: Yes Status: Chronic Assessment and plan: On replacement (11) History of ETOH abuse Current Visit: Yes Status: Acute Assessment and plan: Prior heavy alcohol use. Thiamine and vitamins added. CIWA discontinued. (12) Thrombocytopenia Current Visit: Yes Status: Acute Assessment and plan: Platelets have been decreasing and remain around 100. Following. Most likely related to illness, meds, sequestration. - Subjective Interval history: Ms. Cook is currently hospitalized for multiple medical issues including hypercalcemia, atrial fibrillation, CHF. She is high risk due to potential for worsening cardiac and respiratory status. Ms. Cook got up some today. She said she walked 3 steps and sat in chair. Eating a little better. Still with cough and dypsnea. No fever or chills. No GI symptoms. No dizziness. Plans on cardiac cath Monday when family members are here. - Constitutional Vitals: Temp Pulse Resp BP Pulse Ox 94.7 F L 86 16 103/94 98 10/29/16 07:53 10/29/16 07:53 10/29/16 07:53 10/29/16 07:53 10/29/16 08:00 General appearance: Present: cachectic, cooperative, pleasant, answers questions appropriately (Patient's fixates on topic/story, provides partial responses to questioning at times.) - Head Head exam: Present: normocephalic - Eye Eye exam: Present: conjuntiva pink - ENT ENT exam: Present: mucous membranes moist - Respiratory Respiratory exam: Present: rales. Absent: respiratory distress, rhonchi, wheezes, tachypnea Additional comments: Crackles throughout. - Cardiovascular Cardiovascular exam: Present: irregular rhythm. Absent: tachycardia - GI/Abdominal GI/Abdominal exam: Present: soft. Absent: tenderness - Extremities Exam Extremities exam: Present: warm Additional comments: Edema seems to be somewhat better. - Neurological Exam Neurological exam: Present: alert, oriented X3 - Skin Skin exam: Present: dry, warm. Absent: rash Internal Medicine: Result - Labs CBC & Chem 7: 10/28/16 05:26 10/29/16 07:56 Labs: BMP 10/29/16 07:56 Sodium 136 Potassium 3.5 Chloride 97 L Carbon Dioxide 33 H BUN 23 H Creatinine 0.76 Glucose 108 H Calcium 11.1 H Liver Function 10/29/16 Range/Units 07:56 Total Bilirubin 1.7 H (0.2-1.2) mg/dL AST 284 H (5-34) Units/L ALT 610 H (0-55) Units/L Alkaline Phosphatase 161 H (38-126) Units/L Albumin 2.5 L (3.5-5.0) g/dL - ABG Interpretation ABG results: PT/INR, D-dimer PT 14.1 Seconds (9.4-12.1) H 10/28/16 05:26 - Impressions Impressions Chest X-Ray 10/29/16 09:07 IMPRESSION: Stable cardiomegaly. Patchy airspace opacities bilaterally, may be related to pulmonary edema versus pneumonia, mildly decreased particularly at the right parahilar region. Small bilateral pleural effusions, increased on the right. D/ / Ganga Saavedra MD / Ganga Saavedra MD Interpreting Provider: Ganga Saavedra MD - VTE Documentation of Mechanical Device: Intermittent pneumatic compression device Consult Discharge Plan - Plan Instructions: Atrial Fibrillation (DC) Referrals: Vilma Aiken DO [Resident] - 12/22/16 10:30 am (called [phone] this was the earliest they had available)
[2016-10-29] MEDS ORDERED: Albumin 25% 25gram/100mL 25 GM/100 ML IV.SOLN IVPB ONE (12:28)
[2016-10-29] MEDS ORDERED: Furosemide 20 MG/2 ML VIAL IVP ONE (12:28)
[2016-10-30 03:30] LABS: Alpha 2 Globulin (PEP) 0.73 g/dL (0.48-1.05); Beta Globulin (PEP) 0.72 g/dL (0.48-1.10)
[2016-10-30] MEDS: Azithromycin 250 MG TABLET PO SCH (05:04)
[2016-10-30] MEDS: *HR* Heparin 5,000 UNIT/ML VIAL SQ SCH ×3 (05:04→21:03)
[2016-10-30 06:19] LABS: Hematocrit 38.9 % (35.3-44.9); Mean Corpuscular HGB Conc 30.8 g/dL (31.6-35.5); Mean Corpuscular Volume 87.6 fL (83.0-100.0); Platelet Count 157 K/mcL (140-400); Red Blood Count 4.44 M/mcL (3.82-4.97)
[2016-10-30 06:33] LABS: Alanine Aminotransferase 431 Units/L (0-55); Albumin 2.7 g/dL (3.5-5.0); Alkaline Phosphatase 136 Units/L (38-126); Aspartate Amino Transferase 184 Units/L (5-34); BUN/Creatinine Ratio 24 (6-26); Bilirubin,Total 1.6 mg/dL (0.2-1.2); Blood Urea Nitrogen 19 mg/dL (7-20); Calcium 10.8 mg/dL (8.6-10.8); Carbon Dioxide 39 mEq/L (19-29); Chloride 95 mEq/L (98-109); Globulin 2.6 g/dL (2.4-3.5); Glucose 119 mg/dL (70-99); Osmolality,Calculated 293 (280-300); Potassium 3.2 mEq/L (3.5-4.5); Sodium 140 mEq/L (136-145); Total Protein 5.3 g/dL (6.0-8.3); eGFR For African Americans > 60 (> 60); eGFR For Non-African Americans > 60 (> 60)
[2016-10-30] MEDS: Folic Acid 1 MG TABLET PO SCH (08:33)
[2016-10-30] MEDS: Cholecalciferol (D-3) 1,000 UNIT TABLET PO SCH (08:33)
[2016-10-30] MEDS: Furosemide 20 MG/2 ML VIAL IVP SCH (08:33)
[2016-10-30] MEDS: Vitamin B Complex/Vit C/Vit E 1 EACH TABLET PO SCH (08:34)
--- NOTE | 2016-10-30 08:55 | Nephrology Progress Note ---
Date of Encounter: 10/30/16 Time of Encounter: 08:30 - Assessment and Plan (1) Hypercalcemia Current Visit: Yes Status: Acute Most likely Primary hyperparathyroidism versus malignacy. Calcium slight improvement, 10.8. Had increased Sensipar yesterday. Workup in progress. Acute treatment of elevated calcium is Normal Saline 100cc/hr with concern for fluid overload, will give Lasix 20mg IV daily, both will aid in excretion of urinary calcium. NS held due to EF 15%. Definitive treatment is for ENT to remove parathyroid adenoma. If no improvement will consider Bisphosphonate. Recommend consulting ENT. Lymphadenopathy on Chest CT, will need pulmonary to weigh in at somepoint. Subjective Principal diagnosis: cardiomyopathy Interval history: States feeling better today, not as SOB. Family in room. Eating breakfast. Objective - Vital Signs Vital signs: Vital Signs Temp Pulse Resp BP Pulse Ox 10/30/16 07:46 97.5 F L 79 16 107/83 96 10/30/16 05:38 96.9 F L 94 18 117/73 98 10/29/16 20:47 97.3 F L 85 18 104/75 93 10/29/16 15:59 97.5 F L 95 16 110/75 100 10/29/16 12:03 97.4 F L 70 16 108/68 98 Intake and Output 10/29/16 10/30/16 10/30/16 23:59 07:59 15:59 Intake Total 240 / 240 0 / 0 Balance 240 / 240 0 / 0 Intake: Oral 240 / 240 0 / 0 Other: Meal Dinner Percent of Meal Consumed 50% # Voids 1 0 # Urine Diapers 1 Weight 68.4 kg Patient Weight 10/30/16 23:59 Weight 68.4 kg - General Appearance General appearance: Present: well-developed, well-nourished, appears started age EENT: Present: mucous membranes moist Neck: Present: no JVD Respiratory: Present: clear Cardiology: Present: edema, regular rate, regular rhythm Additional Comments: mild pitting LE Gastrointestinal: Present: normoactive bowel sounds, no tenderness, distended Integumentary: Present: warm and dry Neurologic: Present: alert and oriented x3 Psychiatric: Present: mood/affect appropriate, cooperative - Lab 10/30/16 05:48 10/30/16 05:48 Most recent lab results Calcium 10.8 mg/dL (8.6-10.8) 10/30/16 05:48 Phosphorus 3.0 mg/dL (2.3-4.7) 10/25/16 16:00 Magnesium 1.8 mg/dL (1.6-2.6) 10/25/16 00:58 - VTE Documentation of Mechanical Device: Intermittent pneumatic compression device Consult Discharge Plan - Plan Instructions: Atrial Fibrillation (DC) Referrals: Vilma Aiken DO [Resident] - 12/22/16 10:30 am (called [phone] this was the earliest they had available)
--- NOTE | 2016-10-30 09:49 | Internal Med Progress Note ---
Date of Encounter: 10/30/16 Time of Encounter: 09:00 - Assessment and plan (1) Hypokalemia Current Visit: Yes Status: Acute Assessment and plan: Replace today. Will add serum magnesium level. (2) Systolic heart failure Current Visit: Yes Status: Acute Assessment and plan: EF 15%. Currently on Coreg and lisinopril. Dose of coreg increased some yesterday and she appears to be tolerating it. Will try to increase Lisnopril some today as SBP appears to be above 100 consistently. Plan for cardiac cath Monday when family is here. Qualifiers: Heart failure chronicity: acute on chronic Qualified Code(s): I50.23 - Acute on chronic systolic (congestive) heart failure (3) Atrial fibrillation Current Visit: Yes Status: Acute Assessment and plan: Rate controlled on Coreg. Not on full anticoagulation at this time. 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 Qualifiers: Atrial fibrillation type: persistent Qualified Code(s): I48.1 - Persistent atrial fibrillation (4) Pneumonia Current Visit: Yes Status: Acute Assessment and plan: PA and Lat CXR yesterday shows improving infiltrates and slightly worse R pleural effusion. Will continue full course of abx. Qualifiers: Pneumonia type: due to unspecified organism Laterality: bilateral Lung location: unspecified part of lung Qualified Code(s): J18.9 - Pneumonia, unspecified organism (5) Hypercalcemia Current Visit: Yes Status: Acute Assessment and plan: Slightly down today but corrected level is 11.8. Will need ENT evaluation but need cardiac cath, etc prior to any surgery. (6) Hyperparathyroidism, primary Current Visit: Yes Status: Acute Assessment and plan: Ultimately needs eval for parathyroid surgery but not a candidate right now till cardiac status stabilized. (7) Abnormal liver enzymes Current Visit: Yes Status: Acute Assessment and plan: Improved more today. Continue monitoring and supportive care. Most likely related to hepatic congestion from CHF. (8) Coagulopathy Current Visit: Yes Status: Acute Assessment and plan: Improving with improvement in liver function. (9) Moderate protein malnutrition Current Visit: Yes Status: Chronic Assessment and plan: Supplements. (10) Mass of thyroid region Current Visit: Yes Status: Acute Assessment and plan: Area seen near L thyroid lobe. Asymmetric activity seen on parathroid scan at the left thyroid is suspicious for parathyroid adenoma. Will need further definitive treatment when cardiac status is stabilized. (11) Vitamin D deficiency Current Visit: Yes Status: Chronic Assessment and plan: On replacement (12) History of ETOH abuse Current Visit: Yes Status: Acute Assessment and plan: Prior heavy alcohol use. Thiamine and vitamins added. CIWA discontinued. (13) Thrombocytopenia Current Visit: Yes Status: Acute Assessment and plan: Improved today. - Subjective Interval history: Ms. Cook is currently hospitalized for multiple medical issues including hypercalcemia, atrial fibrillation, CHF. She is high risk due to potential for worsening cardiac and respiratory status. Ms. Cook is finishing breakfast. Denies pain. Slept OK last night. Worried about cardiac cath tomorrow but is willing to have it if family is here. No CP. Less dyspnea. Urinating a lot. No diarrhea. Still with issues with lice. Has been treated twice now. - Constitutional Vitals: Temp Pulse Resp BP Pulse Ox 97.5 F L 79 16 107/83 96 10/30/16 07:46 10/30/16 07:46 10/30/16 07:46 10/30/16 07:46 10/30/16 08:00 General appearance: Present: cachectic, cooperative, pleasant, answers questions appropriately (Patient's fixates on topic/story, provides partial responses to questioning at times.) - Head Head exam: Present: normocephalic - Eye Eye exam: Present: conjuntiva pink - ENT ENT exam: Present: mucous membranes moist - Neck Neck exam general surgery: Absent: tenderness, nuchal rigidity Additional comments: Still with fullness L neck. Nontender. - Respiratory Respiratory exam: Present: decreased breath sounds, CTAB. Absent: rales, rhonchi, wheezes - Cardiovascular Cardiovascular exam: Present: irregular rhythm. Absent: tachycardia - GI/Abdominal GI/Abdominal exam: Present: soft. Absent: mass, tenderness - Extremities Exam Extremities exam: Present: pedal edema. Absent: tenderness, warm - Neurological Exam Neurological exam: Present: alert, oriented X3 - Skin Skin exam: Present: dry, warm. Absent: rash Internal Medicine: Result - Labs CBC & Chem 7: 10/30/16 05:48 10/30/16 05:48 Labs: Short CBC 10/30/16 Range/Units 05:48 WBC 9.0 (4.3-11.1) K/mcL Hgb 12.0 (11.5-15.4) g/dL Hct 38.9 (35.3-44.9) % Plt Count 157 (140-400) K/mcL BMP 10/30/16 05:48 Sodium 140 Potassium 3.2 L Chloride 95 L Carbon Dioxide 39 H BUN 19 Creatinine 0.79 Glucose 119 H Calcium 10.8 Liver Function 10/30/16 Range/Units 05:48 Total Bilirubin 1.6 H (0.2-1.2) mg/dL AST 184 H (5-34) Units/L ALT 431 H (0-55) Units/L Alkaline Phosphatase 136 H (38-126) Units/L Albumin 2.7 L (3.5-5.0) g/dL - ABG Interpretation ABG results: PT/INR, D-dimer PT 14.1 Seconds (9.4-12.1) H 10/28/16 05:26 - Impressions Impressions Chest X-Ray 10/29/16 09:07 IMPRESSION: Stable cardiomegaly. Patchy airspace opacities bilaterally, may be related to pulmonary edema versus pneumonia, mildly decreased particularly at the right parahilar region. Small bilateral pleural effusions, increased on the right. D/ / Ganga Saavedra MD / Ganga Saavedra MD Interpreting Provider: Ganga Saavedra MD - VTE Documentation of Mechanical Device: Intermittent pneumatic compression device Consult Discharge Plan - Plan Instructions: Atrial Fibrillation (DC) Referrals: Vilma Aiken DO [Resident] - 12/22/16 10:30 am (called [phone] this was the earliest they had available)
--- NOTE | 2016-10-30 09:49 | Cardiology Progress Note ---
Date of Encounter: 10/30/16 Time of Encounter: 09:40 Assessment and Plan (1) CHF (congestive heart failure) Current Visit: Yes Status: Acute TTE revealed EF 10%. New acute systolic heart failure. Currently with mild fluid overload that is improving. Strict I&O and daily weights. Continue lasix. LHC was recommended once patient was stable to rule out ischemic cause. She has a history of long heavy alcohol use but quit drinking 4 years ago. Kidney function has returned to normal. INR has normalized. She is able to lay flat with no distress. I discussed LHC indication, risks, benefits, and alternatives. Patient is now agreeable to proceed. She would like her family to be here when procedure is done. Qualifiers: Qualified Code(s): I50.9 - Heart failure, unspecified (2) Elevated troponin Current Visit: Yes Status: Acute Flat adynamic troponin elevation. 0.23, 0.22, Likely secondary to A fib with RVR and acute systolic CHF. Denies chest pain. (3) Atrial fibrillation Current Visit: Yes Status: Acute New AF in setting of alcoholism and CMP. INR 2.4 on admission without anticoagulation. likely d/t liver disease. Not a candidate for anticoagulation. Asa only. Continue bb for rate control. HR 80's currently. Avg HR 92 bpm. Qualifiers: Qualified Code(s): I48.1 - Persistent atrial fibrillation Discussion w patient/family: The assessment and plan as outlined above was discussed with the patient and/or family members who expressed understanding and agreement. All questions were answered. Thank you for involving us in the care of your patient. Please call with any questions. Subjective Principal diagnosis: cardiomyopathy Interval history: She denies any chest pain. She appears anxious. No family available at this time. Objective Vital Signs, Last 4 Hours Temp Pulse Resp BP Pulse Ox 10/30/16 08:00 96 10/30/16 07:46 97.5 F L 79 16 107/83 96 General: Conversant, No Apparent Distress HEENT: Atraumatic, Normocephaly, Mucus Membranes Moist Neck: No JVD, Normal carotid pulses Cardiac: Other (Irregularly irregular) Lungs: Normal Breath Sounds, No Wheeze, Rales, Rhonchi Neuro: Alert and responsive, No focal deficits noted Abdomen: Soft, Non-Tender Skin: No rashes noted on visualized skin Musculoskeletal: No Chest Wall Tenderness Extremities: No Clubbing, No Cyanosis, Normal Pulses, Other (1+ edema in bilateral ankles.) Results 10/30/16 05:48 10/30/16 05:48 Lab Results 10/30/16 10/30/16 05:48 05:48 WBC 9.0 Hgb 12.0 Hct 38.9 Plt Count 157 Sodium 140 Potassium 3.2 L Chloride 95 L Carbon Dioxide 39 H BUN 19 Creatinine 0.79 Glucose 119 H Calcium 10.8 Total Bilirubin 1.6 H AST 184 H ALT 431 H Alkaline Phosphatase 136 H - VTE Documentation of Mechanical Device: Intermittent pneumatic compression device Consult Discharge Plan - Plan Instructions: Atrial Fibrillation (DC) Referrals: Vilma Aiken DO [Resident] - 12/22/16 10:30 am (called [phone] this was the earliest they had available)
[2016-10-30] MEDS: Aspirin 81 MG TAB.CHEW PO SCH (11:17)
[2016-10-30] MEDS ORDERED: Ibuprofen 600 MG TABLET PO PRN (21:14)
[2016-10-31 05:06] LABS: Alanine Aminotransferase 380 Units/L (0-55); Albumin 2.9 g/dL (3.5-5.0); Alkaline Phosphatase 144 Units/L (38-126); Aspartate Amino Transferase 146 Units/L (5-34); BUN/Creatinine Ratio 22 (6-26); Bilirubin,Total 2.1 mg/dL (0.2-1.2); Blood Urea Nitrogen 16 mg/dL (7-20); Calcium 11.4 mg/dL (8.6-10.8); Carbon Dioxide 38 mEq/L (19-29); Chloride 93 mEq/L (98-109); Globulin 2.9 g/dL (2.4-3.5); Glucose 107 mg/dL (70-99); Magnesium 1.4 mg/dL (1.6-2.6); Osmolality,Calculated 290 (280-300); Potassium 3.2 mEq/L (3.5-4.5); Sodium 139 mEq/L (136-145); Total Protein 5.8 g/dL (6.0-8.3); eGFR For African Americans > 60 (> 60); eGFR For Non-African Americans > 60 (> 60)
[2016-10-31 05:15] LABS: Hematocrit 41.9 % (35.3-44.9); Hemoglobin 13.1 g/dL (11.5-15.4); Mean Corpuscular HGB Conc 31.3 g/dL (31.6-35.5); Mean Corpuscular Hemoglobin 26.6 pg (28.0-33.3); Mean Corpuscular Volume 85.2 fL (83.0-100.0); Mean Platelet Volume 10.7 fL (9.4-12.4); Platelet Count 182 K/mcL (140-400); Red Blood Count 4.92 M/mcL (3.82-4.97); Red Cell Distribution Width 15.1 % (11.5-14.5)
[2016-10-31] MEDS: *HR* Heparin 5,000 UNIT/ML VIAL SQ SCH ×3 (05:46→22:53)
[2016-10-31 07:20] LABS: Immunoglobulin G 1040 mg/dL (768-1632)
[2016-10-31 07:21] LABS: IFE Reflexed IFE Done; Immunoglobulin A 268 mg/dL (68-408); Immunoglobulin M 119 mg/dL (35-263)
--- NOTE | 2016-10-31 07:36 | Pre-Sedation Evaluation ---
Pre-sedation evaluation - Pre-sedation checklist Date of procedure: 10/31/16 Procedure: heart cath Recent Vitals: Last Vital Signs Temp 98.9 F 10/31/16 06:06 Pulse 102 10/31/16 06:06 Resp 20 10/31/16 06:06 BP 130/100 10/31/16 06:06 Pulse Ox 92 10/31/16 06:06 H&P (including ROS) documented in medical record: Yes Previous reaction to sedatives/anesthetics: Unknown Dietary Status: NPO after Midnight Dentition: dentures removed ASA Classification *see protocol: CLASS II-Mild systemic disease Plan of Care: Pt appropriate candidate for procedure/moderate/conscious sedation , Risks/benefits of procedure/sedation discussed w/ patient/family
[2016-10-31] MEDS: Furosemide 20 MG/2 ML VIAL IVP SCH (08:53)
[2016-10-31] MEDS: Vitamin B Complex/Vit C/Vit E 1 EACH TABLET PO SCH (08:54)
[2016-10-31] MEDS: Cholecalciferol (D-3) 1,000 UNIT TABLET PO SCH (08:54)
[2016-10-31] MEDS: Aspirin 81 MG TAB.CHEW PO SCH (08:54)
[2016-10-31] MEDS: Folic Acid 1 MG TABLET PO SCH (08:54)
--- NOTE | 2016-10-31 09:17 | Internal Med Progress Note ---
<John Hoyos - Last Filed: 10/31/16 13:18> Date of Encounter: 10/31/16 Time of Encounter: 09:00 - Assessment and plan (1) Systolic heart failure Current Visit: Yes Status: Acute Assessment and plan: EF 10-15%. Currently on Coreg and lisinopril. Slowly increasing Coreg as tolerated. May increase Lisnopril as SBP appears to be above 100 consistently. Plan for cardiac cath today. Qualifiers: Heart failure chronicity: acute on chronic Qualified Code(s): I50.23 - Acute on chronic systolic (congestive) heart failure (2) New onset a-fib Current Visit: Yes Status: Acute Assessment and plan: Continuing low dose Coreg. INR improved from 2.4>1.3 HR was in the 80s, currently jumped to 102, however patient is anxious about C today. (3) Pneumonia Current Visit: Yes Status: Acute Assessment and plan: Recent PA and Lat CXR showed improving infiltrates and slightly worse R pleural effusion. 7 days of ceftriaxone completed, 5 days of azithromycin completed. Concern for fluid overload. Monitor I/Os Qualifiers: Pneumonia type: due to unspecified organism Laterality: bilateral Lung location: unspecified part of lung Qualified Code(s): J18.9 - Pneumonia, unspecified organism (4) Hypercalcemia Current Visit: Yes Status: Acute Assessment and plan: Corrected Calcium up today 11.8>12.3 today. Will need ENT evaluation but need cardiac cath, etc prior to any surgery. Consider bisphosphates. (5) Hyperparathyroidism Current Visit: Yes Status: Acute Assessment and plan: Ultimately needs eval for parathyroid surgery but not a candidate right now till cardiac status stabilized. (6) Abnormal liver enzymes Current Visit: Yes Status: Acute Assessment and plan: Improved more today. Continue monitoring and supportive care. Most likely related to hepatic congestion from CHF. (7) Elevated troponin Current Visit: Yes Status: Acute Assessment and plan: Adynamic elevated troponin at 0.23 and 0.22. Likely secondary to demand ischemia with A fib and CHF LHC planned for today. (8) Coagulopathy Current Visit: Yes Status: Acute Assessment and plan: Improving with improvement in liver function. (9) Moderate protein malnutrition Current Visit: Yes Status: Chronic Assessment and plan: Supplements. (10) Mass of thyroid region Current Visit: Yes Status: Acute Assessment and plan: Area seen near L thyroid lobe. Asymmetric activity seen on parathyroid scan at the left thyroid is suspicious for parathyroid adenoma. Will need further definitive treatment when cardiac status is stabilized. (11) Vitamin D deficiency Current Visit: Yes Status: Chronic Assessment and plan: On replacement (12) History of ETOH abuse Current Visit: Yes Status: Acute Assessment and plan: Prior heavy alcohol use. Thiamine and vitamins added. CIWA discontinued. (13) Hypokalemia Current Visit: Yes Status: Acute Assessment and plan: Replace today. (14) Hypomagnesemia Current Visit: Yes Status: Acute Assessment and plan: Replace today. - Time Spent With Patient 25 - 35 minutes - Subjective Interval history: Patient seen and examined at bedside. Multiple family members presents, patient agreeable to [facility] today. Denies acute distress, but notes dry lips and a headache. - Constitutional Vitals: Temp Pulse Resp BP Pulse Ox 98.9 F 102 20 130/100 92 10/31/16 06:06 10/31/16 06:06 10/31/16 06:06 10/31/16 06:06 10/31/16 06:06 General appearance: Present: cachectic, cooperative, pleasant, answers questions appropriately (Patient's fixates on topic/story, provides partial responses to questioning at times.) - Head Head exam: Present: atraumatic, normocephalic - Eye Eye exam: Present: conjuntiva pink, sclera anicteric - ENT ENT exam: Present: mucous membranes dry - Neck Additional comments: fullness of L neck - Respiratory Respiratory exam: Present: decreased breath sounds, CTAB. Absent: rhonchi, stridor, wheezes - Cardiovascular Cardiovascular exam: Present: irregular rhythm, tachycardia - GI/Abdominal GI/Abdominal exam: Present: soft. Absent: firm, guarding, rigid, tenderness - Extremities Exam Extremities exam: Present: pedal edema. Absent: cyanotic, tenderness - Neurological Exam Neurological exam: Present: alert, altered (unable to recall family member's names) - Psychiatric Psychiatric exam: Present: anxious - Skin Skin exam: Present: dry, normal color Internal Medicine: Result - Labs CBC & Chem 7: 10/31/16 04:38 10/31/16 04:38 Labs: Short CBC 10/31/16 Range/Units 04:38 WBC 11.0 (4.3-11.1) K/mcL Hgb 13.1 (11.5-15.4) g/dL Hct 41.9 (35.3-44.9) % Plt Count 182 (140-400) K/mcL BMP 10/31/16 04:38 Sodium 139 Potassium 3.2 L Chloride 93 L Carbon Dioxide 38 H BUN 16 Creatinine 0.74 Glucose 107 H Calcium 11.4 H Liver Function 10/31/16 Range/Units 04:38 Total Bilirubin 2.1 H (0.2-1.2) mg/dL AST 146 H (5-34) Units/L ALT 380 H (0-55) Units/L Alkaline Phosphatase 144 H (38-126) Units/L Albumin 2.9 L (3.5-5.0) g/dL - ABG Interpretation ABG results: PT/INR, D-dimer PT 14.1 Seconds (9.4-12.1) H 10/28/16 05:26 - VTE Documentation of Mechanical Device: Intermittent pneumatic compression device Consult Discharge Plan - Plan Instructions: Atrial Fibrillation (DC) Referrals: Vilma Aiken DO [Resident] - 12/22/16 10:30 am (called [phone] this was the earliest they had available) Ioana Brown DO [Non-Partnered Physician] - 11/17/16 11:45 am (FOLLOW UP FOR ENT CONSULT) <Parth Watson - Last Filed: 10/31/16 16:12> Date of Encounter: 10/31/16 - Assessment and plan (1) Systolic heart failure Current Visit: Yes Status: Acute Qualifiers: Heart failure chronicity: acute on chronic Qualified Code(s): I50.23 - Acute on chronic systolic (congestive) heart failure (2) Hypokalemia Current Visit: Yes Status: Acute (3) Atrial fibrillation Current Visit: Yes Status: Acute Qualifiers: Atrial fibrillation type: persistent Qualified Code(s): I48.1 - Persistent atrial fibrillation (4) Pneumonia Current Visit: Yes Status: Acute Assessment and plan: Abx completed today. Qualifiers: Pneumonia type: due to unspecified organism Laterality: bilateral Lung location: unspecified part of lung Qualified Code(s): J18.9 - Pneumonia, unspecified organism (5) Hypercalcemia Current Visit: Yes Status: Acute Assessment and plan: Renal is following but remains very elevated. (6) Hyperparathyroidism, primary Current Visit: Yes Status: Acute Assessment and plan: Will need ENT consult for possible removal. (7) Abnormal liver enzymes Current Visit: Yes Status: Acute (8) Coagulopathy Current Visit: Yes Status: Acute (9) Moderate protein malnutrition Current Visit: Yes Status: Chronic (10) Mass of thyroid region Current Visit: Yes Status: Acute (11) Vitamin D deficiency Current Visit: Yes Status: Chronic (12) History of ETOH abuse Current Visit: Yes Status: Acute (13) Thrombocytopenia Current Visit: Yes Status: Resolved - Constitutional Vitals: Temp Pulse Resp BP Pulse Ox 98.9 F 102 20 130/100 92 10/31/16 06:06 10/31/16 06:06 10/31/16 06:06 10/31/16 06:06 10/31/16 09:00 Internal Medicine: Result - Labs CBC & Chem 7: 10/31/16 04:38 10/31/16 04:38 Labs: Short CBC 10/31/16 Range/Units 04:38 WBC 11.0 (4.3-11.1) K/mcL Hgb 13.1 (11.5-15.4) g/dL Hct 41.9 (35.3-44.9) % Plt Count 182 (140-400) K/mcL BMP 10/31/16 04:38 Sodium 139 Potassium 3.2 L Chloride 93 L Carbon Dioxide 38 H BUN 16 Creatinine 0.74 Glucose 107 H Calcium 11.4 H Liver Function 10/31/16 Range/Units 04:38 Total Bilirubin 2.1 H (0.2-1.2) mg/dL AST 146 H (5-34) Units/L ALT 380 H (0-55) Units/L Alkaline Phosphatase 144 H (38-126) Units/L Albumin 2.9 L (3.5-5.0) g/dL - ABG Interpretation ABG results: PT/INR, D-dimer PT 14.1 Seconds (9.4-12.1) H 10/28/16 05:26 - Attending Attestation I examined this patient and my medical decision-making was reviewed with the Resident Physician on 10/31/16. I agree with the documented findings, disposition and treatment plan as described except to the extent set forth below. Ms. Cook is currently admitted for multiple medical issues including systolic heart failure, hyperparathyroidism, a fib and lice. She is high risk due to potential for worsening respiratory and cardiac status. Ms. Cook is awaiting cardiac cath today. No issues overnight. Denies pain. No dyspnea currently. No fever or chills. Exam Alert. Comfortable Heart irreg Lungs with some rhonchi. I/P 1. Systolic heart failure 2. A fib 3. Pneumonia - completed 7 days abx Further diagnoses and plan as above.
--- NOTE | 2016-10-31 09:28 | Nephrology Progress Note ---
Date of Encounter: 10/31/16 Time of Encounter: 08:20 - Assessment and Plan (1) Hypercalcemia Current Visit: Yes Status: Acute Most likely Primary hyperparathyroidism versus malignacy. Calcium 11.4. On Sensipar. Workup in progress. Acute treatment of elevated calcium is Normal Saline 100cc/hr with concern for fluid overload, will give Lasix 20mg IV daily, both will aid in excretion of urinary calcium. NS held due to EF 15%. Definitive treatment is for ENT to remove parathyroid adenoma. If no improvement will consider Bisphosphonate. Recommend consulting ENT. Lymphadenopathy on Chest CT, will need pulmonary to weigh in at somepoint. Subjective Principal diagnosis: cardiomyopathy Interval history: States feeling better today, not as SOB. Family in room. Objective - Vital Signs Vital signs: Vital Signs Temp Pulse Resp BP Pulse Ox 10/31/16 06:06 98.9 F 102 20 130/100 92 10/30/16 20:27 97.5 F L 85 18 115/84 91 10/30/16 16:59 97.7 F 91 16 100/73 92 10/30/16 11:58 98.1 F 86 16 96/58 98 Intake and Output 10/30/16 10/31/16 10/31/16 23:59 07:59 15:59 Intake Total 0 / 0 100 / 100 Output Total 200 / 200 Balance 0 / 0 -100 / -100 Intake: IV Fluids 100 / 100 Rocephin 1,000 MG In 100 / 100 Dextrose 5% (Minibag+) 100 ML 100 ML @ 200 mls/ hr IVPB Q24H [facility] Rx#: [id number] Oral 0 / 0 0 / 0 Output: Urine 200 / 200 Other: Meal Dinner Percent of Meal Consumed 50% # Voids 1 0 - General Appearance General appearance: Present: well-developed, well-nourished, appears started age EENT: Present: mucous membranes moist Neck: Present: no JVD Respiratory: Present: clear Additional Comments: diminished throughout Gastrointestinal: Present: normoactive bowel sounds, no tenderness Integumentary: Present: warm and dry Neurologic: Present: alert and oriented x3 Psychiatric: Present: mood/affect appropriate, cooperative - Lab 10/31/16 04:38 10/31/16 04:38 Most recent lab results Calcium 11.4 mg/dL (8.6-10.8) H 10/31/16 04:38 Phosphorus 3.0 mg/dL (2.3-4.7) 10/25/16 16:00 Magnesium 1.4 mg/dL (1.6-2.6) L 10/31/16 04:38 - VTE Documentation of Mechanical Device: Intermittent pneumatic compression device Consult Discharge Plan - Plan Instructions: Atrial Fibrillation (DC) Referrals: Vilma Aiken DO [Resident] - 12/22/16 10:30 am (called [phone] this was the earliest they had available)
[2016-10-31] MEDS ORDERED: Magnesium Oxide 400 MG TABLET PO SCH (12:00)
[2016-10-31] MEDS ORDERED: Potassium Chloride Elixir 20 MEQ/15 ML UDC PO SCH (12:00)
[2016-10-31] MEDS ORDERED: Verapamil 5 MG/2 ML VIAL ONE (14:04)
[2016-10-31] MEDS ORDERED: 0.9 % Sodium Chloride 1,000 ML ONE ×2 (14:05→14:55)
[2016-10-31] MEDS ORDERED: Nitroglycerin 1,000 MCG/10 ML VIAL IV ONE (14:05)
[2016-10-31] MEDS ORDERED: Heparin 1,000 UNITS/500 mL NS 500 ML ONE (14:05)
[2016-10-31] MEDS ORDERED: *HR* Heparin 10,000 UNIT/10 ML VIAL ONE (14:05)
[2016-10-31] MEDS ORDERED: *HR* FentaNYL (PF) 100 MCG/2 ML VIAL ONE (15:05)
--- NOTE | 2016-10-31 15:35 | Event Note ---
Date of Encounter: 10/31/16 Time of Encounter: 15:30 - Cardiology Event Note S/p LHC that revealed a non-ischemic cardiomyopathy. No flow limiting lesions seen. Cardiomyopathy ETOH or tachycardia induced. Continue beta-lenny and brandon- inhibitor. Maintenance lasix at discharge. Has rate controlled afib. Asa only d/ t autocoagulation on admission in the setting of liver dysfuction. CHF education was reviewed with patient. Will schedule hospital f/u in one week with [facility]. Cardiology will sign off. Call with questions.
[2016-10-31] MEDS ORDERED: *HR* Midazolam HCl 5 MG/5 ML VIAL IVP ONE (15:55)
--- NOTE | 2016-10-31 15:55 | Invasive Diagnostic Lab Proc ---
Name: Vinod Cook Date of Study: 10/31/2016 Date: 1955 Ht: 66.9in Medical Record#: [id number] Age: 61 Wt: 149.91lb Gender: Female BSA: 1.79 Order #: [id number] BMI: 23.53 Physicians Procedure Physician: Neil Hernandez MD, [facility] Referring MD: Referring MD: Staff Name Position Time In [facility] RT (R) Monitor 03:04 PM Ahsan Andrew RN Technical Project Manager 03:04 PM Josephine Stokes RT (R) Scrub 03:04 PM Indications Indication Non-Stemi Procedures Performed Procedure L HRT ARTERY/VENTRICLE ANGIO Pre-Procedure Checklist Informed consent is complete signed and on chart. H\\T\\P is on chart. ID band is on and ID verified with patient. Patient NPO for procedure The procedure was described for the patient and questions were answered. Blood Pressure: 132/100 ECG is on chart. Rhythm: Atrial Fib/Flutter Plan of Care Patient will tolerate the procedure without complications. Adequate level of comfort will be maintained. Hemodynamics will remain stable Patient will recover from procedure without complications. Respiratory function will be maintained. Cardiac rhythm will remain stable. Patient temperature will be maintained. Patient and/or family have verbalized understanding of the procedure. Patient Education Chief Complaint/Reason for Test: Cardiac Cath Developmental Category: Adult (18-64 years) Developmentally Appropriate for Age: Yes Learning Barriers: None Education Needs: Procedure Education Method: Verbal Information Taught: Cardiac Cath Educational Evaluation: Able to repeat information Intravenous Access Time IV Size Location DC'd Fluid/Drip Rate Units RN 18g 1 06/15" Patent On Arrival Lt Arm 0.9NaCl 25 ml/hr Ahsan Andrew RN Allergies No Known Allergies Vital Signs Time BP (mmHg) HR (bpm) O2 Sat. RR (bpm) LOC 132 / 100 102 92 % 20 5 = Fully awake and oriented or at pre-proc level 03:04 PM / % 4 = Oriented but drowsy 03:04 PM / % 4 = Oriented but drowsy 03:01 PM 125 / 92 88 83 % 03:06 PM 113 / 89 100 86 % 27 03:12 PM 119 / 75 90 97 % 10 03:16 PM 107 / 75 203 % 4 03:21 PM 106 / 68 83 84 % 12 03:27 PM 120 / 55 90 95 % 11 03:31 PM 100 / 69 97 % 11 Procedural Medications Time Medication Dose Units Method Given By 03:04 PM Oxygen 2 L/min nasal cannula Ahsan Andrew RN 03:05 PM Versed 1 mg Intravenous Ahsan Andrew RN 03:05 PM Fentanyl 25 mcg Intravenous Ahsan Andrew RN 03:10 PM Lidocaine 2% 19 ml Subcutaneous Neil Hernandez MD, FACC 03:11 PM Versed 1 mg Intravenous Ahsan Andrew RN 03:11 PM Fentanyl 25 mcg Intravenous Ahsan Andrew RN ASA Classification: CLASS II- Mild systemic disease (i.e. well-controlled diabetes, hypertension, asthma, cigarette smoking) Cole Score Preprocedure Postprocedure Activity 2- Moves 4 extremities sustained head lift Activity 2- Moves 4 extremities sustained head lift Circulation 2- SBP +/= 20 points of pre-anesthetic level Circulation 2- SBP +/= 20 points of pre-anesthetic level Consciousness 2- Awake and alert oriented x 3 Consciousness 2- Awake and alert oriented x 3 O2 Saturation 2- Able to maintain O2 satruation of 92% on room air O2 Saturation 2- Able to maintain O2 satruation of 92% on room air Respiratory 2- Able to deep breathe and cough well Respiratory 2- Able to deep breathe and cough well Total Score 10 Total Score 10 Contrast Agent: Isovue Diagnostic Contrast: 85 ml Total Contrast: 85 ml Fluoro Dose: 196 mGy Procedure Log Time Note Enter By 02:27 PM CathStat 03:01 PM Vitals capture started with the following parameters, Patient=Adult, Interval=5 min, Initial Tqfvubuy=100 mmHg, Deflation Rate=5 mmHg, Cuff placed on Right Arm 03:01 PM HR=88 bpm, UQEV=247/92 mmhg, SpO2=83.0 % 03:02 PM Recorded ECG: HR=97 Condition=Condition 1 03:04 PM Pt arrived to geotechnical laboratory technician 2 at 15:04 tsites 03:04 PM Physician arrived 15:04 tsites 03:04 PM Meet and greet completed tsites 03:04 PM Sign in performed according to hospital policy. tsites 03:04 PM Procedure start 15:04 tsites 03:04 PM Yasmin Lopez RT (R) Position: Monitor Time in: 15:04 tsites 03:04 PM Ahsan Andrew RN Position: Technical Project Manager Time in: 15:04 tsites 03:04 PM Josephine Stokes RT (R) Position: Scrub Time in: 15:04 tsites 03:04 PM Patient charges- Angio tray pack, Navilyst 3mm J, Pulse Oximetry and ACIST tubing and transducer tsites 03:04 PM Case Delayed No tsites 03:04 PM Time: 15:04 Oxygen on at 2 L/min per nasal cannula by Ahsan Andrew RN tsites 03:04 PM Time: 15:04 Patient comfortable and pain free: Yes tsites 03:04 PM Time: 15:04LOC: 4 = Oriented but drowsy tsites 03:05 PM Clinical Presentation: Non-STEMI tsites 03:05 PM Time: 15:05 Versed 1 mg Intravenous Given by Ahsan Andrew RN tsites 03:05 PM Time: 15:05 Fentanyl 25 mcg Intravenous Given by Ahsan Andrew RN tsites 03:06 PM GA=167 bpm, VLFU=884/89 mmhg, SpO2=86.0 %, Resp=27 B/min 03:09 PM Time out performed according to hospital policy tsites 03:10 PM Time: 15:10 19 ml Lidocaine 2% to right groin Subcutaneous Given by Neil Hernandez MD, [facility] tsites 03:11 PM Time: 15:11 Versed 1 mg Intravenous Given by Ahsan Andrew RN tsites 03:12 PM Time: 15:11 Fentanyl 25 mcg Intravenous Given by Ahsan Andrew RN tsites 03:12 PM Access obtained by percutaneous puncture. 5Fr 10cm Terumo Dwarf sheath placed in right Femoral artery. [id number] tsites 03:12 PM 5Fr FL 4 catheter inserted over the wire [facility] tsites 03:12 PM 0.035 145cm Navilyst 3mmJ wire [id number] tsites 03:12 PM HR=90 bpm, BWRW=270/75 mmhg, SpO2=97.0 %, Resp=10 B/min 03:13 PM LCA angiography performed in multiple views. tsites 03:14 PM Recorded Pressure: Ao, HR=88, Condition=Condition 1 (Aorta) Ao 91/66/77 03:15 PM wire reinserted catheter removed tsites 03:15 PM 5Fr FR 4 catheter inserted over the wire [facility] tsites 03:15 PM RCA angiography performed in multiple views. tsites 03:16 PM TR=074 bpm, UFNK=654/75 mmhg, Resp=4 B/min 03:17 PM Recorded Pressure: Ao, HR=97, Condition=Condition 1 (Aorta) Ao 78/69/73 03:17 PM wire reinserted catheter removed tsites 03:17 PM 5Fr Pigtail catheter inserted over the wire DNC tsites 03:17 PM Catheter selectively placed in left ventricle tsites 03:18 PM Bolus angiogram of left Ventricle complete: 13 ml/sec for a total of 30 mls tsites 03:19 PM Recorded Pressure: LV, HR=84, Condition=Condition 1 (Left Ventricle) LV 90/40/42 03:19 PM Recorded Pressure: LV, HR=85, Condition=Condition 1 (Left Ventricle) LV 63/31/37 03:20 PM Time: 15:04LOC: 4 = Oriented but drowsy tsites 03:20 PM Time: 15:04 Patient comfortable and pain free: Yes tsites 03:20 PM Recorded Pressure: LV, Ao, HR=99, Condition=Condition 1 (Left Ventricle) LV 67/18/19, (Aorta) Ao 54/45/49 03:20 PM NIBP STAT measurement started. 03:21 PM Catheter removed tsites 03:21 PM HR=83 bpm, RVTL=829/68 mmhg, SpO2=84.0 %, Resp=12 B/min 03:23 PM Bolus angiogram of right Femoral complete: 2 ml/sec for a total of 4 mls tsites 03:23 PM Isovue 370 - 500ml,1 Bottle(s) used. tsites 03:23 PM Arterial sheath pulled, Mynx closure device used and was unSuccessful S/N. tsites 03:23 PM Post ECG Atrial Fib/Flutter tsites 03:23 PM Post Blood Pressure 106/68 tsites 03:24 PM 15:23 Post Pulses Bilateral DP \\T\\ PT 2+ tsites 03:24 PM Information taught Cardiac Cath and Mynx tsites 03:24 PM Procedure completed at 15:24 tsites 03:25 PM Education needs Procedure, Plan of Care, and Responsibilities of Patient in Care tsites 03:25 PM Learning barriers :None tsites 03:25 PM Education Methods Verbal tsites 03:25 PM Education evaluation Able to repeat information tsites 03:25 PM Family placed in consult room. tsites 03:25 PM Arterial site held using manual compression for12 minutes by Josephine Stokes RT (R) tsites 03:27 PM HR=90 bpm, FYOR=958/55 mmhg, SpO2=95 %, Resp=11 B/min 03:28 PM Report given to hemal SAHU Pt taken to E Room #34. 15:28 tsites 03:28 PM Coronary Dominance: Left tsites 03:29 PM Sign out completed: Radiation Dose 196 mGy Fluoro Time: 2.5 Isovue 370 - 500ml contrast 84.8 ml given by Neil Hernandez MD, FACC. Complications: NoneCardiac Rehab Consult needed: NoConfirmed administered medications: Yes tsites 03:31 PM HR=97 bpm, RFPU=816/69 mmhg, Resp=11 B/min 03:33 PM Site status No bleeding/hematoma - Rt Groin as reported by Josephine Stokes RT (R) at 15:33 tsites 03:33 PM Opsite applied tsites 03:35 PM Patient out of room: 15:35 tsites Complications Complication None Hemodynamics Pressures Site Systolic/A Wave Diastolic/V Wave Mean AO 91 66 77 AO 78 69 73 LV 90 40 42 LV 63 31 37 LV 67 18 19 AO 54 45 49 Post Procedure Information Blood Pressure: 106/68 mmHg Rhythm: Atrial Fib/Flutter Post procedural instructions were given Closure Device Time Device Success/Fail 10/31/2016 3:29:00 PM MynxGrip Failed Manual Compression Successful Site Checks Time Location Status Staff Sheath In? Note 03:33 PM Rt Groin No bleeding/hematoma Josephine Stokes RT JuanjoR) Pulses Time Site Pre-Procedure Post-Procedure Note Bilateral DP \\T\\ PT 2+ Bilateral radial 2+ 3:23:00 PM Bilateral DP \\T\\ PT 2+ Updated by Yasmin Lopez RT (R) on 10/31/2016 3:41:45 PM Yasmin Lopez RT electronically signed on 10/31/2016 3:48:36 PM with status of Final
[2016-10-31] MEDS: Potassium Chloride Elixir 20 MEQ/15 ML UDC PO SCH (18:38)
[2016-10-31] MEDS: Magnesium Oxide 400 MG TABLET PO SCH (18:39)
[2016-11-01 05:32] LABS: Basophils % 0.6 %; Eosinophils # 0.2 K/mcL (0.0-0.6); Eosinophils % 3.4 %; Hematocrit 36.4 % (35.3-44.9); Immature Granulocytes % 0.4 % (0-4); Lymphocytes # 1.4 K/mcL (0.6-4.6); Lymphocytes % 19.7 %; Mean Corpuscular Hemoglobin 26.8 pg (28.0-33.3); Mean Corpuscular Volume 86.5 fL (83.0-100.0); Mean Platelet Volume 11.5 fL (9.4-12.4); Monocytes % 13.6 %; Neutrophils # 4.5 K/mcL (1.6-8.9); Nucleated Red Blood Cells 0.4 /100 WBC (0); Platelet Count 185 K/mcL (140-400); Red Blood Count 4.21 M/mcL (3.82-4.97); Red Cell Distribution Width 15.4 % (11.5-14.5); Segmented Neutrophils % 62.3 %
[2016-11-01 05:34] LABS: Hemoglobin 11.3 g/dL (11.5-15.4)
[2016-11-01 05:48] LABS: Alanine Aminotransferase 268 Units/L (0-55); Albumin 2.5 g/dL (3.5-5.0); Alkaline Phosphatase 120 Units/L (38-126); Aspartate Amino Transferase 97 Units/L (5-34); BUN/Creatinine Ratio 26 (6-26); Bilirubin,Total 1.6 mg/dL (0.2-1.2); Blood Urea Nitrogen 18 mg/dL (7-20); Calcium 10.6 mg/dL (8.6-10.8); Carbon Dioxide 39 mEq/L (19-29); Chloride 93 mEq/L (98-109); Globulin 2.6 g/dL (2.4-3.5); Glucose 99 mg/dL (70-99); Magnesium 1.3 mg/dL (1.6-2.6); Osmolality,Calculated 284 (280-300); Potassium 3.2 mEq/L (3.5-4.5); Sodium 136 mEq/L (136-145); Total Protein 5.1 g/dL (6.0-8.3); eGFR For African Americans > 60 (> 60); eGFR For Non-African Americans > 60 (> 60)
[2016-11-01] MEDS: *HR* Heparin 5,000 UNIT/ML VIAL SQ SCH ×3 (06:28→21:37)
--- NOTE | 2016-11-01 08:28 | Event Note ---
Date of Encounter: 11/01/16 Time of Encounter: 08:28 The patient's calcium remained stable. I spoke with Dr. Haywood of ENT yesterday. She prefers to wait until the patient can be seen as an outpatient prior to consideration of parathyroid surgery. Obviously her cardiovascular issues may complicate things. In any event she should continue on the Sensipar. Nephrology will sign off. Please call again if needed.
[2016-11-01] MEDS: Folic Acid 1 MG TABLET PO SCH (08:33)
[2016-11-01] MEDS: Cholecalciferol (D-3) 1,000 UNIT TABLET PO SCH (08:33)
[2016-11-01] MEDS: Magnesium Oxide 400 MG TABLET PO SCH (08:33)
[2016-11-01] MEDS: Aspirin 81 MG TAB.CHEW PO SCH (08:33)
[2016-11-01] MEDS: Vitamin B Complex/Vit C/Vit E 1 EACH TABLET PO SCH (08:33)
[2016-11-01] MEDS: Furosemide 20 MG/2 ML VIAL IVP SCH (08:34)
[2016-11-01] MEDS: Potassium Chloride Elixir 20 MEQ/15 ML UDC PO SCH (08:34)
[2016-11-01] MEDS ORDERED: Magnesium Sulfate 2 GM in D5% in Water 100 ML IVPB ONE (11:52)
[2016-11-01] MEDS ORDERED: Potassium Chloride 20 MEQ, Lidocaine 1% 2 ML in D5% in Water 250 ML IVPB ONE (11:52)
--- NOTE | 2016-11-01 17:30 | Internal Med Progress Note ---
<John Hoyos - Last Filed: 11/01/16 17:41> Date of Encounter: 11/01/16 Time of Encounter: 09:45 - Assessment and plan (1) Systolic heart failure Current Visit: Yes Status: Acute Assessment and plan: EF 10-15%. Currently on Coreg and lisinopril. Cardiac cath completed showing non ischemic cardiomyopathy. Recommended ASA, BB, ACEI, lasix. Qualifiers: Heart failure chronicity: acute on chronic Qualified Code(s): I50.23 - Acute on chronic systolic (congestive) heart failure (2) New onset a-fib Current Visit: Yes Status: Acute Assessment and plan: Continuing low dose Coreg. Anticoagulation not recommended as patient at risk for falls and recent liver dysfunction. Plan for follow up with outpatient cardiology clinic. (3) Pneumonia Current Visit: Yes Status: Acute Assessment and plan: Pneumonia vs effusions Abx completed. Respiratory status improved from admission. Qualifiers: Pneumonia type: due to unspecified organism Laterality: bilateral Lung location: unspecified part of lung Qualified Code(s): J18.9 - Pneumonia, unspecified organism (4) Hypercalcemia Current Visit: Yes Status: Acute Assessment and plan: Remains elevated. Nephrology recommends continuation of sensipar and follow up with ENT (possible parathyroidectomy). (5) Hyperparathyroidism Current Visit: Yes Status: Acute Assessment and plan: Ultimately needs eval for parathyroid surgery. (6) Abnormal liver enzymes Current Visit: Yes Status: Acute Assessment and plan: Continues to improve. Most likely related to hepatic congestion from CHF. (7) Elevated troponin Current Visit: Yes Status: Acute Assessment and plan: Adynamic elevated troponin at 0.23 and 0.22. Likely secondary to demand ischemia with A fib and CHF LHC as discussed above. (8) Coagulopathy Current Visit: Yes Status: Acute Assessment and plan: Improved with improvement in liver function. (9) Moderate protein malnutrition Current Visit: Yes Status: Chronic Assessment and plan: Supplements. (10) Mass of thyroid region Current Visit: Yes Status: Acute Assessment and plan: Area seen near L thyroid lobe. Asymmetric activity seen on parathyroid scan at the left thyroid is suspicious for parathyroid adenoma. ENT referral. (11) Vitamin D deficiency Current Visit: Yes Status: Chronic Assessment and plan: On replacement (12) History of ETOH abuse Current Visit: Yes Status: Acute Assessment and plan: Prior heavy alcohol use. Thiamine and vitamins replaced. CIWA discontinued. (13) Hypokalemia Current Visit: Yes Status: Acute Assessment and plan: Replace today. (14) Hypomagnesemia Current Visit: Yes Status: Acute Assessment and plan: Replace today. - Time Spent With Patient 25 - 35 minutes - Subjective Interval history: Patient seen and examined at bedside. Noted episode of incontinence this AM. Patient's son present, social work met with patient and son to discuss placement for rehab. - Constitutional Vitals: Temp Pulse Resp BP Pulse Ox 97.2 F L 85 16 96/73 98 11/01/16 12:12 11/01/16 12:12 11/01/16 12:12 11/01/16 12:12 11/01/16 12:12 General appearance: Present: cachectic, cooperative, pleasant, no acute distress , answers questions appropriately (Patient's fixates on topic/story, provides partial responses to questioning at times.) - Head Head exam: Present: atraumatic, normocephalic - Eye Eye exam: Present: conjuntiva pink, sclera anicteric - ENT ENT exam: Present: mucous membranes dry - Neck Additional comments: Left neck fullness - Respiratory Respiratory exam: Absent: accessory muscle use, respiratory distress, tachypnea - GI/Abdominal GI/Abdominal exam: Present: soft. Absent: firm, guarding - Extremities Exam Extremities exam: Present: warm. Absent: cyanotic - Neurological Exam Neurological exam: Present: alert, altered - Psychiatric Psychiatric exam: Present: anxious - Skin Skin exam: Present: dry, normal color. Absent: rash Internal Medicine: Result - Labs CBC & Chem 7: 11/01/16 05:02 11/01/16 05:02 Labs: Short CBC 11/01/16 Range/Units 05:02 WBC 7.2 (4.3-11.1) K/mcL Hgb 11.3 L D (11.5-15.4) g/dL Hct 36.4 (35.3-44.9) % Plt Count 185 (140-400) K/mcL Neutrophils # 4.5 (1.6-8.9) K/mcL BMP 11/01/16 05:02 Sodium 136 Potassium 3.2 L Chloride 93 L Carbon Dioxide 39 H BUN 18 Creatinine 0.69 Glucose 99 Calcium 10.6 Liver Function 11/01/16 Range/Units 05:02 Total Bilirubin 1.6 H (0.2-1.2) mg/dL AST 97 H (5-34) Units/L ALT 268 H (0-55) Units/L Alkaline Phosphatase 120 (38-126) Units/L Albumin 2.5 L (3.5-5.0) g/dL - ABG Interpretation ABG results: PT/INR, D-dimer PT 14.1 Seconds (9.4-12.1) H 10/28/16 05:26 - VTE Documentation of Mechanical Device: Intermittent pneumatic compression device Consult Discharge Plan - Plan Instructions: Atrial Fibrillation (DC) Referrals: Vilma Aiken DO [Resident] - 12/22/16 10:30 am (called [phone] this was the earliest they had available) Ioana Brown DO [Non-Partnered Physician] - 11/17/16 11:45 am (FOLLOW UP FOR ENT CONSULT) <Travis Patel P - Last Filed: 11/01/16 18:38> Date of Encounter: 11/01/16 - Constitutional Vitals: Temp Pulse Resp BP Pulse Ox 96.7 F L 79 16 103/89 96 11/01/16 17:49 11/01/16 17:49 11/01/16 17:49 11/01/16 17:49 11/01/16 17:49 Internal Medicine: Result - Labs CBC & Chem 7: 11/01/16 05:02 11/01/16 05:02 Labs: Short CBC 11/01/16 Range/Units 05:02 WBC 7.2 (4.3-11.1) K/mcL Hgb 11.3 L D (11.5-15.4) g/dL Hct 36.4 (35.3-44.9) % Plt Count 185 (140-400) K/mcL Neutrophils # 4.5 (1.6-8.9) K/mcL BMP 11/01/16 05:02 Sodium 136 Potassium 3.2 L Chloride 93 L Carbon Dioxide 39 H BUN 18 Creatinine 0.69 Glucose 99 Calcium 10.6 Liver Function 11/01/16 Range/Units 05:02 Total Bilirubin 1.6 H (0.2-1.2) mg/dL AST 97 H (5-34) Units/L ALT 268 H (0-55) Units/L Alkaline Phosphatase 120 (38-126) Units/L Albumin 2.5 L (3.5-5.0) g/dL - ABG Interpretation ABG results: PT/INR, D-dimer PT 14.1 Seconds (9.4-12.1) H 10/28/16 05:26 - Attending Attestation I examined this patient and my medical decision-making was reviewed with the INSPECTOR ADVANCED COMPOSITE/PA/Advanced Practice Nurse/Resident Physician. I agree with the documented findings, disposition and treatment plan as described except to the extent set forth below.
[2016-11-02] MEDS: *HR* Heparin 5,000 UNIT/ML VIAL SQ SCH (04:19)
[2016-11-02 05:25] LABS: Basophils % 0.4 %; Eosinophils # 0.2 K/mcL (0.0-0.6); Hematocrit 34.8 % (35.3-44.9); Hemoglobin 10.9 g/dL (11.5-15.4); Immature Granulocytes % 0.4 % (0-4); Lymphocytes # 1.6 K/mcL (0.6-4.6); Lymphocytes % 20.9 %; Mean Corpuscular HGB Conc 31.3 g/dL (31.6-35.5); Mean Corpuscular Hemoglobin 27.1 pg (28.0-33.3); Mean Corpuscular Volume 86.6 fL (83.0-100.0); Mean Platelet Volume 11.4 fL (9.4-12.4); Monocytes # 0.9 K/mcL (0.0-1.3); Monocytes % 11.9 %; Neutrophils # 4.9 K/mcL (1.6-8.9); Platelet Count 203 K/mcL (140-400); Red Blood Count 4.02 M/mcL (3.82-4.97); Red Cell Distribution Width 15.4 % (11.5-14.5); Segmented Neutrophils % 63.4 %
[2016-11-02 05:44] LABS: Alanine Aminotransferase 226 Units/L (0-55); Albumin 2.5 g/dL (3.5-5.0); Alkaline Phosphatase 129 Units/L (38-126); Aspartate Amino Transferase 81 Units/L (5-34); BUN/Creatinine Ratio 25 (6-26); Bilirubin,Total 1.3 mg/dL (0.2-1.2); Blood Urea Nitrogen 16 mg/dL (7-20); Calcium 10.2 mg/dL (8.6-10.8); Chloride 94 mEq/L (98-109); Globulin 2.6 g/dL (2.4-3.5); Glucose 84 mg/dL (70-99); Osmolality,Calculated 286 (280-300); Potassium 3.7 mEq/L (3.5-4.5); Sodium 138 mEq/L (136-145); Total Protein 5.1 g/dL (6.0-8.3); eGFR For African Americans > 60 (> 60); eGFR For Non-African Americans > 60 (> 60)
[2016-11-02 05:47] LABS: Carbon Dioxide 40 mEq/L (19-29)
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
[2016-11-02] MEDS: Folic Acid 1 MG TABLET PO SCH (09:33)
[2016-11-02] MEDS: Aspirin 81 MG TAB.CHEW PO SCH (09:33)
[2016-11-02] MEDS: Magnesium Oxide 400 MG TABLET PO SCH (09:33)
[2016-11-02] MEDS: Vitamin B Complex/Vit C/Vit E 1 EACH TABLET PO SCH (09:33)
[2016-11-02] MEDS: Cholecalciferol (D-3) 1,000 UNIT TABLET PO SCH (09:33)
[2016-11-02] MEDS: Potassium Chloride Elixir 20 MEQ/15 ML UDC PO SCH (09:34)
[2016-11-02] MEDS: Furosemide 20 MG/2 ML VIAL IVP SCH (09:34)
--- NOTE | 2016-11-02 12:37 | Physician Discharge Referral ---
<John Hoyos - Last Filed: 11/02/16 13:08> Home Health/Hosp Referral Info Transfer to: Home Health Provider in Charge Post Discharge: PCP - Diagnosis (1) Systolic heart failure Priority: Primary Status: Acute (2) New onset a-fib Priority: Secondary Status: Acute (3) Pneumonia Priority: Secondary Status: Acute (4) Hypercalcemia Priority: Secondary Status: Acute (5) Hyperparathyroidism Priority: Secondary Status: Acute (6) Abnormal liver enzymes Priority: Secondary Status: Acute (7) Elevated troponin Priority: Secondary Status: Acute (8) Coagulopathy Priority: Secondary Status: Acute (9) Moderate protein malnutrition Priority: Secondary Status: Chronic (10) Mass of thyroid region Priority: Secondary Status: Acute (11) Vitamin D deficiency Priority: Secondary Status: Chronic (12) History of ETOH abuse Priority: Secondary Status: Acute (13) Hypokalemia Priority: Secondary Status: Acute (14) Hypomagnesemia Priority: Secondary Status: Acute - Respiratory Orders Oxygen / L per min (2L) Smoking Cessation: Smoking cessation has been advised. For more information, call the [place] Tobacco Quit Line at 4-508-GMYH-NOW. - Diet/Nutrition Diet/Nutrition Orders: Cardiac (advanced soft diet) Diet/Nutrition: List: protein supplements/shakes - Activity Activity Orders: Walker - Services Needed Following services are medically necessary services: Nursing, Home Health Aide, Physical Therapy, Occupational Therapy Other Treatments: Labs ordered for 1 week from discharge. Follow up with cardiology and establish with PCP. - Transfer Medications Prescriptions: Aspirin 81 mg PO DAILY #30 tab.chew Carvedilol [Coreg] 6.25 mg PO BIDWM #30 tablet Cholecalciferol (D-3) [Vitamin D] 2,000 unit PO DAILY #15 tablet Cinacalcet [Sensipar] 60 mg PO DAILY #15 tablet Folic Acid 1 mg PO DAILY #15 tablet Furosemide [Lasix] 40 mg PO DAILY #7 vial Lisinopril [Zestril] 5 mg PO DAILY #15 tablet Potassium Chloride Elixir [Potassium Chloride] 20 meq PO DAILY #7 c Home Medications: Aspirin 81 mg PO DAILY #30 tab.chew 11/02/16 [Rx] Carvedilol [Coreg] 6.25 mg PO BIDWM #30 tablet 11/02/16 [Rx] Cholecalciferol (D-3) [Vitamin D] 2,000 unit PO DAILY #15 tablet 11/02/16 [Rx] Cinacalcet [Sensipar] 60 mg PO DAILY #15 tablet 11/02/16 [Rx] Folic Acid 1 mg PO DAILY #15 tablet 11/02/16 [Rx] Furosemide [Lasix] 40 mg PO DAILY #7 vial 11/02/16 [Rx] Lisinopril [Zestril] 5 mg PO DAILY #15 tablet 11/02/16 [Rx] Potassium Chloride Elixir [Potassium Chloride] 20 meq PO DAILY #7 udc 11/02/16 [ Rx] Allergies/Adverse Reactions: Allergies No Known Allergies Allergy (Verified 10/25/16 00:33) Certification: Further, I certify that my clinical findings support that this patient is homebound (i.e. absences from home require considerable and taxing effort and are for medical reasons or zoroastrianism services or infrequently or short duration when for other reasons) because: Homebound Reason: Patient requires assistance of a person or device to safely leave home, Altered mental status requiring supervision when leaving home, Severity of cardiac or pulmonary status limits activity tolerance Attestation: My signature below is to certify that this patient is under my care and that I, or nurse practitioner, or a physician's parking assistant working with me, has a face-to -face encounter with this patient. <Travis Patel - Last Filed: 11/02/16 16:57> - Respiratory Orders Smoking Cessation: Smoking cessation has been advised. For more information, call the [place] Tobacco Quit Line at 1-230-THIF-NOW. Certification: Further, I certify that my clinical findings support that this patient is homebound (i.e. absences from home require considerable and taxing effort and are for medical reasons or zoroastrianism services or infrequently or short duration when for other reasons) because: Attestation: My signature below is to certify that this patient is under my care and that I, or nurse practitioner, or a physician's parking assistant working with me, has a face-to -face encounter with this patient.
[2016-11-02 16:01] VITALS: BP 106/76
--- NOTE | 2016-11-04 11:30 | Invasive Diagnostic Lab ---
Name: Vinod Cook Date of Study: 10/31/2016 Date: 1955 Ht: 170.0 cm /66.9 in Medical Record#: [id number] Age: 61 Wt: 68. kg / 149.91 lb Account/Order#: [id number] Gender: Female BSA: 1.79 Order #: [id number] Fluoro Dose: 196 mGy BMI: 23.53 Procedure Physician: Neil Hernandez MD, FACC Referring MD: Referring MD: Procedures Performed: LEFT HEART CATH Indications: Non-Stemi Impressions: Coronary arteries are angiographically normal. There is severe LV Dysfunction EF 15% Recommendations: Optimal medical therapy of patient's disease. Aggressive risk factor modification. History/Risk Factors: CARDIOMYOPATHY A-FIB NSTEMI pneumonia HYPOKALEMIA HYPERCALCEMIA ALCOHOL ABUSE ABN LIVER ENZYMES CHF Procedure Access obtained in the right Femoral artery by percutaneous puncture Complications: None Contrast: Isovue 85ml Closure Device: MynxGrip, Manual Compression Hemodynamics: Pressures Site Systolic/ A Wave Diastolic/ V Wave End Diastolic/ Mean HR AO 91 66 77 88 AO 78 69 73 97 LV 90 40 42 84 LV 63 31 37 85 LV 67 18 19 104 AO 54 45 49 92 LV Ventriculography Ejection Method: LV Gram Ejection Fraction: 15% Wall Motion: SLAUGHTER Anterobasal Severe Hypokinesis Anterolateral Severe Hypokinesis Apical: Severe Hypokinesis Inferoapical Severe Hypokinesis Inferobasal Severe Hypokinesis Coronary Dominance: Left Lesion Findings/Interventions * Left Main Coronary Artery The LMCA is angiographically free of disease. * Left Anterior Descending The LAD is angiographically free of disease. The 1st Diagonal is angiographically free of disease. * Circumflex The Circumflex is angiographically free of disease. The 1st Marginal is angiographically free of disease. The Left PDA is angiographically free of disease. * Right Coronary Artery The RCA is angiographically free of disease. Updated by Yasmin Lopez RT (R) on 10/31/2016 3:33:00 PM Neil Hernandez MD, FACC electronically signed on 11/04/2016 11:24:57 AM with status of Final
== END 2016-11-02 19:16 | disposition home health service (06) | DRG 720 ==
LOC: EMEROO → 2NENU → SUATTDRO 04:49
PROVIDERS: ADMIT Internal Medicine; ATTEND Internal Medicine

== ENCOUNTER 2016-12-11 23:15 | Inpatient (IN) ==
[2016-12-11 23:55] LABS: Basophils % 0.1 %; Hemoglobin 14.2 g/dL (11.5-15.4); Immature Granulocytes % 0.3 % (0-4); Lymphocytes # 1.3 K/mcL (0.6-4.6); Lymphocytes % 12.7 %; Mean Corpuscular HGB Conc 31.6 g/dL (31.6-35.5); Mean Corpuscular Hemoglobin 26.1 pg (28.0-33.3); Mean Corpuscular Volume 82.6 fL (83.0-100.0); Mean Platelet Volume 11.2 fL (9.4-12.4); Monocytes # 0.7 K/mcL (0.0-1.3); Monocytes % 6.6 %; Red Blood Count 5.45 M/mcL (3.82-4.97); Segmented Neutrophils % 80.3 %; VBG HCO3 25.9 mEq/L (21-27); VBG PH 7.34 pH Units (7.32-7.42)
[2016-12-11 23:56] LABS: Platelet Count 98 K/mcL (140-400)
[2016-12-12] MEDS ORDERED: Piperacillin/Tazobactam 4.5 GM in D5% in Water (Mini-Bag+) 100 ML IVPB ONE (00:15)
[2016-12-12] MEDS ORDERED: 0.9 % Sodium Chloride 1,000 ML IVC SCH (00:15)
[2016-12-12 00:31] LABS: BUN/Creatinine Ratio 18 (6-26); Blood Urea Nitrogen 18 mg/dL (7-20); Calcium 12.6 mg/dL (8.6-10.8); Carbon Dioxide 18 mEq/L (19-29); Chloride 87 mEq/L (98-109); Glucose 125 mg/dL (70-99); Osmolality,Calculated 265 (280-300); Sodium 126 mEq/L (136-145); eGFR For African Americans > 60 (> 60); eGFR For Non-African Americans 56 (> 60)
[2016-12-12 00:32] LABS: Potassium 4.3 mEq/L (3.5-4.5)
[2016-12-12] MEDS ORDERED: Vancomycin 1,250 MG in D5% in Water 250 ML IVPB ONE (01:00)
[2016-12-12 02:00] LABS: Bilirubin,Urine Moderate (Negative); Blood,Urine Moderate (Negative); Clarity,Urine Turbid (Clear); Color,Urine Orange (Yellow); Glucose,Urine (UA) Normal (Normal); Ketones,Urine Negative (Negative); Leukocyte Esterase,Urine Negative (Negative); Nitrite,Urine Negative (Negative); Protein,Urine 100 mg/dL (Neg-Trace); Specific Gravity,Urine > 1.030 (1.010-1.025); Urobilinogen,Urine Normal (Normal)
[2016-12-12 02:04] LABS: Squamous Epithelial Cell,Urine Many per lpf (None-Few)
[2016-12-12 02:16] LABS: Bacteria,Urine Moderate per hpf (None-Few); Hyaline Casts,Urine Few per lpf (None-Few)
[2016-12-12 02:17] LABS: Mucus,Urine Few (Few)
[2016-12-12] MEDS ORDERED: *HR* Heparin 5,000 UNIT/ML VIAL IVP ONE (02:52)
[2016-12-12] MEDS ORDERED: *HR* Heparin 5,000 UNIT/ML VIAL IVP PRN ×2 (02:52)
[2016-12-12 04:48] LABS: INR 2.1; Prothrombin Time 22.6 Seconds (9.4-12.1)
[2016-12-12 04:51] LABS: Activated Partial Thrombo Time 36.9 Seconds (26.0-36.0)
[2016-12-12] MEDS: Heparin 25,000 UNIT/500 ML D5W 25,000 UNIT/500 ML MLS IVC SCH (05:01)
--- NOTE | 2016-12-12 05:39 | Emergency Department Note ---
Disposition Clinical Impression: CHF (congestive heart failure) Qualifiers: Congestive heart failure type: combined Congestive heart failure chronicity: acute on chronic Qualified Code(s): I50.43 - Acute on chronic combined systolic (congestive) and diastolic (congestive) heart failure DVT (deep venous thrombosis) Qualifiers: DVT location: lower extremity Affected thrombotic vein of extremity: other lower extremity vein Chronicity: unspecified Laterality: unspecified laterality Qualified Code(s): I82.499 - Acute embolism and thrombosis of other specified deep vein of unspecified lower extremity Disposition: Admitted As Inpatient Referrals: NO,PCP [Primary Care Provider] - Forms: ED Satisfaction Letter General Adult HPI - General Chief complaint: ED Shortness of Breath/Dyspnea Stated complaint: Bilateral Leg Swelling/MARIE Source: patient Limitations: no limitations Nursing Notes Reviewed: Yes Vital Signs Reviewed: Yes - History of Present Illness HPI Narrative: 61-year-old female with a history of decompensated heart failure who was non- med compliant who presents with concern for dyspnea. She admits that she has had trouble getting her medications over the past couple of weeks but she does follow up with a wet machine cutter. She presents with tachycardia, known atrial fibrillation, obvious dyspnea. She denies fever, chills, night sweats. She has no sick or ill contacts. Pain Scale: 0 - Related Data Previous Rx's Medication Instructions Recorded Aspirin 81 mg PO DAILY #30 tab.chew 11/02/16 Carvedilol [Coreg] 6.25 mg PO BIDWM #30 tablet 11/02/16 Cholecalciferol (D-3) [Vitamin D] 2,000 unit PO DAILY #15 tablet 11/02/16 Cinacalcet [Sensipar] 60 mg PO DAILY #15 tablet 11/02/16 Folic Acid 1 mg PO DAILY #15 tablet 11/02/16 Furosemide [Lasix] 40 mg PO DAILY #7 vial 11/02/16 Lisinopril [Zestril] 5 mg PO DAILY #15 tablet 11/02/16 Potassium Chloride Elixir 20 meq PO DAILY #7 udc 11/02/16 [Potassium Chloride] Mupirocin Calcium [Bactroban] 15 gm TP BID #1 cream..g. 11/06/16 Allergies Allergy/AdvReac Type Severity Reaction Status Date / Time No Known Allergies Allergy Verified 12/11/16 23:18 All systems ED: reviewed and negative except as stated. 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 - Social History Smoking Status: Former smoker Smokeless Tobacco Status: No Alcohol use: Reports: none Drug use: Reports: none Physical Exam - General Limitations: no limitations General appearance: alert - Eye Eye exam: Present: normal appearance - ENT ENT exam: normal exam, normal oropharynx - Neck Neck exam: Present: normal inspection - Chest Chest inspection: Present: other - Respiratory Respiratory exam: Present: respiratory distress, accessory muscle use - Cardiovascular Cardiovascular exam: Present: systolic murmur, diastolic murmur - Abdominal Exam Abdominal exam: Present: soft - Extremities Exam Extremities exam: Present: pedal edema - Expanded Lower Extremity Exam Hip/Pelvis exam: Present: normal inspection Gait: not tested/not observed - Back Exam Back exam: Present: normal inspection - Neurological Exam Neurological exam: Present: alert, oriented X3, CN II-XII intact - Psychiatric Psychiatric exam: Present: normal affect - Skin Skin exam: Present: warm, dry Course Vital Signs Temperature 0 F L 12/11/16 23:18 Pulse Rate 84 12/11/16 23:18 Respiratory Rate 22 12/11/16 23:18 Blood Pressure 111/75 12/11/16 23:18 O2 Sat by Pulse Oximetry 97 12/11/16 23:18 Temperature 98.8 F 12/12/16 05:14 Pulse Rate 114 12/12/16 05:14 Respiratory Rate 20 12/12/16 05:14 Blood Pressure 118/92 12/12/16 05:14 O2 Sat by Pulse Oximetry 98 12/12/16 05:14 Oxygen Delivery Oxygen Delivery Room Air Medical Decision Making - [facility] Narrative Medical decision making narrative: This is a critically ill patient suffering from rapid atrial fibrillation with decompensated heart failure and ultimately found to have both deep venous thrombus and atrial appendage clot likely from underlying atrial fibrillation. Due to profound lactic acidosis likely from hypoperfusion she was started on broad-spectrum antibiotics and fluid resuscitated. Her lactate actually improved in the department and pending cultures were sent. CT scan of the chest was obtained to rule out pulmonary embolism and this is negative however does demonstrate atrial clot. CT scan of the abdomen and pelvis was obtained to rule out mesenteric ischemia. The patient will be admitted after anticoagulation was initiated with heparin in critical condition with high potential for life-threatening deterioration. - Medical Records Medical records reviewed: Yes I reviewed the patient's medical records. - Lab Data Lab results reviewed: Yes I reviewed the patient's lab results. Result diagrams: 12/11/16 23:47 12/11/16 23:47 Lab Results 12/11/16 12/11/16 12/11/16 Range/Units 23:47 23:47 23:47 WBC 9.9 (4.3-11.1) K/mcL RBC 5.45 H (3.82-4.97) M/mcL Hgb 14.2 (11.5-15.4) g/dL Hct 45.0 H (35.3-44.9) % MCV 82.6 L (83.0-100.0) fL MCH 26.1 L (28.0-33.3) pg MCHC 31.6 (31.6-35.5) g/dL RDW 19.0 H (11.5-14.5) % Plt Count 98 L (140-400) K/mcL MPV 11.2 (9.4-12.4) fL Immature Gran % 0.3 (0-4) % Seg Neutrophils % 80.3 % Lymphocytes % 12.7 % Monocytes % 6.6 % Eosinophils % 0.0 % Basophils % 0.1 % Neutrophils # 8.0 (1.6-8.9) K/mcL Lymphocytes # 1.3 (0.6-4.6) K/mcL Monocytes # 0.7 (0.0-1.3) K/mcL Eosinophils # 0.0 (0.0-0.6) K/mcL Basophils # 0.0 (0.0-0.2) K/mcL PT (9.4-12.1) Seconds INR APTT (26.0-36.0) Seconds VBG pH (7.32-7.42) pH Units VBG pCO2 (41-51) mmHg VBG pO2 (25-40) mmHg VBG HCO3 (21-27) mEq/L Sodium 126 L (136-145) mEq/L Potassium 4.3 (3.5-4.5) mEq/L Chloride 87 L (98-109) mEq/L Carbon Dioxide 18 L (19-29) mEq/L BUN 18 (7-20) mg/dL Creatinine 1.00 (0.57-1.11) mg/dL Est GFR ( Amer) > 60 (> 60) Est GFR (Non-Af Amer) 56 L (> 60) BUN/Creatinine Ratio 18 (6-26) Glucose 125 H (70-99) mg/dL Calculated Osmolality 265 L (280-300) Lactic Acid 6.5 H* (0.5-2.2) mmol/L Calcium 12.6 H (8.6-10.8) mg/dL Troponin I (0-0.03) ng/mL B-Natriuretic Peptide (0-100) pg/mL Urine Color (Yellow) Urine Clarity (Clear) Urine pH (5.0-8.0) pH Units Ur Specific [place] (1.010-1.025) Urine Protein (Neg-Trace) mg/dL Urine Glucose (UA) (Normal) mg/dL Urine Ketones (Negative) mg/dL Urine Blood (Negative) Urine Nitrite (Negative) Urine Bilirubin (Negative) Urine Urobilinogen (Normal) mg/dL Ur Leukocyte Esterase (Negative) Urine Microscopic RBC (0-3) per hpf Urine Microscopic WBC (0-3) per hpf Ur Squamous Epith Cells (None-Few) per lpf Urine Bacteria (None-Few) per hpf Hyaline Casts (None-Few) per lpf Urine Mucus (Few) Urine Yeast Ur Culture Indicated? (NO) 12/11/16 12/11/16 12/11/16 Range/Units 23:47 23:47 23:47 WBC (4.3-11.1) K/mcL RBC (3.82-4.97) M/mcL Hgb (11.5-15.4) g/dL Hct (35.3-44.9) % MCV (83.0-100.0) fL MCH (28.0-33.3) pg MCHC (31.6-35.5) g/dL RDW (11.5-14.5) % Plt Count (140-400) K/mcL MPV (9.4-12.4) fL Immature Gran % (0-4) % Seg Neutrophils % % Lymphocytes % % Monocytes % % Eosinophils % % Basophils % % Neutrophils # (1.6-8.9) K/mcL Lymphocytes # (0.6-4.6) K/mcL Monocytes # (0.0-1.3) K/mcL Eosinophils # (0.0-0.6) K/mcL Basophils # (0.0-0.2) K/mcL PT (9.4-12.1) Seconds INR APTT (26.0-36.0) Seconds VBG pH 7.34 (7.32-7.42) pH Units VBG pCO2 48 (41-51) mmHg VBG pO2 31 (25-40) mmHg VBG HCO3 25.9 (21-27) mEq/L Sodium (136-145) mEq/L Potassium (3.5-4.5) mEq/L Chloride (98-109) mEq/L Carbon Dioxide (19-29) mEq/L BUN (7-20) mg/dL Creatinine (0.57-1.11) mg/dL Est GFR ( Amer) (> 60) Est GFR (Non-Af Amer) (> 60) BUN/Creatinine Ratio (6-26) Glucose (70-99) mg/dL Calculated Osmolality (280-300) Lactic Acid (0.5-2.2) mmol/L Calcium (8.6-10.8) mg/dL Troponin I 0.13 H* (0-0.03) ng/mL B-Natriuretic Peptide 3060 H (0-100) pg/mL Urine Color (Yellow) Urine Clarity (Clear) Urine pH (5.0-8.0) pH Units Ur Specific [place] (1.010-1.025) Urine Protein (Neg-Trace) mg/dL Urine Glucose (UA) (Normal) mg/dL Urine Ketones (Negative) mg/dL Urine Blood (Negative) Urine Nitrite (Negative) Urine Bilirubin (Negative) Urine Urobilinogen (Normal) mg/dL Ur Leukocyte Esterase (Negative) Urine Microscopic RBC (0-3) per hpf Urine Microscopic WBC (0-3) per hpf Ur Squamous Epith Cells (None-Few) per lpf Urine Bacteria (None-Few) per hpf Hyaline Casts (None-Few) per lpf Urine Mucus (Few) Urine Yeast Ur Culture Indicated? (NO) 12/12/16 12/12/16 12/12/16 Range/Units 01:22 01:49 03:38 WBC (4.3-11.1) K/mcL RBC (3.82-4.97) M/mcL Hgb (11.5-15.4) g/dL Hct (35.3-44.9) % MCV (83.0-100.0) fL MCH (28.0-33.3) pg MCHC (31.6-35.5) g/dL RDW (11.5-14.5) % Plt Count (140-400) K/mcL MPV (9.4-12.4) fL Immature Gran % (0-4) % Seg Neutrophils % % Lymphocytes % % Monocytes % % Eosinophils % % Basophils % % Neutrophils # (1.6-8.9) K/mcL Lymphocytes # (0.6-4.6) K/mcL Monocytes # (0.0-1.3) K/mcL Eosinophils # (0.0-0.6) K/mcL Basophils # (0.0-0.2) K/mcL PT (9.4-12.1) Seconds INR APTT (26.0-36.0) Seconds VBG pH (7.32-7.42) pH Units VBG pCO2 (41-51) mmHg VBG pO2 (25-40) mmHg VBG HCO3 (21-27) mEq/L Sodium (136-145) mEq/L Potassium (3.5-4.5) mEq/L Chloride (98-109) mEq/L Carbon Dioxide (19-29) mEq/L BUN (7-20) mg/dL Creatinine (0.57-1.11) mg/dL Est GFR ( Amer) (> 60) Est GFR (Non-Af Amer) (> 60) BUN/Creatinine Ratio (6-26) Glucose (70-99) mg/dL Calculated Osmolality (280-300) Lactic Acid 3.5 H 3.1 H (0.5-2.2) mmol/L Calcium (8.6-10.8) mg/dL Troponin I (0-0.03) ng/mL B-Natriuretic Peptide (0-100) pg/mL Urine Color [place] A (Yellow) Urine Clarity Turbid A (Clear) Urine pH 5.0 (5.0-8.0) pH Units Ur Specific [place] > 1.030 H (1.010-1.025) Urine Protein 100 H (Neg-Trace) mg/dL Urine Glucose (UA) Normal (Normal) mg/dL Urine Ketones Negative (Negative) mg/dL Urine Blood Moderate H (Negative) Urine Nitrite Negative (Negative) Urine Bilirubin Moderate H (Negative) Urine Urobilinogen Normal (Normal) mg/dL Ur Leukocyte Esterase Negative (Negative) Urine Microscopic RBC 5-15 H (0-3) per hpf Urine Microscopic WBC 5-15 H (0-3) per hpf Ur Squamous Epith Cells Many H (None-Few) per lpf Urine Bacteria Moderate H (None-Few) per hpf Hyaline Casts Few (None-Few) per lpf Urine Mucus Few (Few) Urine Yeast Test Not Performed Ur Culture Indicated? YES A (NO) 12/12/16 Range/Units 04:38 WBC (4.3-11.1) K/mcL RBC (3.82-4.97) M/mcL Hgb (11.5-15.4) g/dL Hct (35.3-44.9) % MCV (83.0-100.0) fL MCH (28.0-33.3) pg MCHC (31.6-35.5) g/dL RDW (11.5-14.5) % Plt Count (140-400) K/mcL MPV (9.4-12.4) fL Immature Gran % (0-4) % Seg Neutrophils % % Lymphocytes % % Monocytes % % Eosinophils % % Basophils % % Neutrophils # (1.6-8.9) K/mcL Lymphocytes # (0.6-4.6) K/mcL Monocytes # (0.0-1.3) K/mcL Eosinophils # (0.0-0.6) K/mcL Basophils # (0.0-0.2) K/mcL PT 22.6 H (9.4-12.1) Seconds INR 2.1 APTT 36.9 H (26.0-36.0) Seconds VBG pH (7.32-7.42) pH Units VBG pCO2 (41-51) mmHg VBG pO2 (25-40) mmHg VBG HCO3 (21-27) mEq/L Sodium (136-145) mEq/L Potassium (3.5-4.5) mEq/L Chloride (98-109) mEq/L Carbon Dioxide (19-29) mEq/L BUN (7-20) mg/dL Creatinine (0.57-1.11) mg/dL Est GFR ( Amer) (> 60) Est GFR (Non-Af Amer) (> 60) BUN/Creatinine Ratio (6-26) Glucose (70-99) mg/dL Calculated Osmolality (280-300) Lactic Acid (0.5-2.2) mmol/L Calcium (8.6-10.8) mg/dL Troponin I (0-0.03) ng/mL B-Natriuretic Peptide (0-100) pg/mL Urine Color (Yellow) Urine Clarity (Clear) Urine pH (5.0-8.0) pH Units Ur Specific [place] (1.010-1.025) Urine Protein (Neg-Trace) mg/dL Urine Glucose (UA) (Normal) mg/dL Urine Ketones (Negative) mg/dL Urine Blood (Negative) Urine Nitrite (Negative) Urine Bilirubin (Negative) Urine Urobilinogen (Normal) mg/dL Ur Leukocyte Esterase (Negative) Urine Microscopic RBC (0-3) per hpf Urine Microscopic WBC (0-3) per hpf Ur Squamous Epith Cells (None-Few) per lpf Urine Bacteria (None-Few) per hpf Hyaline Casts (None-Few) per lpf Urine Mucus (Few) Urine Yeast Ur Culture Indicated? (NO) - EKG Data EKG #1 EKG results narrative: EKG shows atrial fibrillation without ST segment changes. Normal intervals. Heart rate 134. Critical Care Time Total Critical Care Time: 31 Attestation: Female patient presenting with rapid atrial fibrillation as well as acute deep venous thrombosis. I spent greater than 31 minutes providing critical care time. This was excluding billable procedures. The patient remains in critical condition with high potential for life-threatening deterioration.
--- NOTE | 2016-12-12 06:06 | Internal Med History&Physical ---
Date of Encounter: 12/12/16 Time of Encounter: 06:04 Assessment and Plan (1) Acute exacerbation of CHF (congestive heart failure) Current visit: Yes Status: Acute Recent recurrent showed LVEF of 10 -15%. Pt apparently could not get refill for her medications. Will treat with intravenous Lasix. Low sodium diet, daily weights, fluid restriction. Qualifiers: Congestive heart failure type: systolic Qualified Code(s): I50.23 - Acute on chronic systolic (congestive) heart failure (2) Left atrial thrombus Current visit: Yes Status: Acute Will obtain echocardiogram to evaluate this. Patient is started on heparin infusion in the ER - continue. Cardiology consultation (3) Elevated troponin Current visit: Yes Status: Acute Likely secondary to atrial fibrillation with RVR and CHF exacerbation. Trend troponins (4) Hypercalcemia Current visit: Yes Status: Acute secondary to hyperparathyroidism. Pt received IV fluids and lasix in the ER. Monitor calcium levels (5) Pneumonia Current visit: Yes Status: Acute CT scan of the chest reports airspace disease. Pt is emperically started on vancomycin and zosyn. Qualifiers: Pneumonia type: due to unspecified organism Laterality: bilateral Lung location: unspecified part of lung Qualified Code(s): J18.9 - Pneumonia, unspecified organism (6) Lactic acidosis Current visit: Yes Status: Acute Acute secondary to CHF exacerbation versus sepsis. Lactate level is improving. Monitor. (7) Sepsis Current visit: Yes Status: Suspected Pt has elevated lactate and suspected pneumonia. continue antibiotics Qualifiers: Sepsis type: sepsis due to unspecified organism Qualified Code(s): A41.9 - Sepsis, unspecified organism (8) Thrombocytopenia Current visit: Yes Status: Acute Monitor platelet count (9) Dysphagia Current visit: Yes Status: Acute Speech therapy evaluation Qualifiers: Dysphagia type: unspecified Qualified Code(s): R13.10 - Dysphagia, unspecified (10) Atrial fibrillation with RVR Current visit: Yes Status: Acute Resume betablocker. Internal Medicine - H&P: HPI Chief complaint: Shortness of breath Admitted From: Emergency Dept Plans for Post Hospital Care: Home History of present illness: Ms. Cook is a 61 year old female With History of chronic CHF with ejection fraction of 10-15%, non-ischemic cardiomyopathy, primary hyperparathyroidism/ parathyroid adenoma, chronic thyroiditis, atrial fibrillation, Moderate malnutrition, vitamin D deficiency. She was recently hospitalized for A Fib / RVR/ pneumonia and was discharged on 11/02/16. Pt reports that she could not get refill of her medications, as she is still waiting to see her PCP. She presents to the emergency department, with shortness of breath for a few days - exertional dyspnea and orthopnea for 2 days (apparently she could not lie down in the bed and not able to sleep). She reports cough with no significant expectoration. Denies significant chest pain. She reports abdominal pain with cough. She denies dysuria or hematuria or changes in bowel habits. She reports difficulty swallowing and feels choking she also throws up the food. She was evaluated in the ER and was noted to have Parenchymal disease likely represents combination of edema, pneumonia and compressive atelectasis. There is a large filling defect in the superior aspect of the left atrium and left atrial appendage highly suspicious for clot and less likely tumor. Pt is started on vancomycin, zosin and heparin infusion. She is admitted to the hospitalist service for further management. Past Med Surg Social Fam HX - Past Medical History Medical history: cardiomyopathy, CHF Psychiatric history: no psych history - Social History Smoking Status: Former smoker Smokeless Tobacco Status: No Alcohol use: none Drug use: none Internal Medicine - H&P: Meds Aspirin 81 mg PO DAILY #30 tab.chew 11/02/16 [Rx] Carvedilol [Coreg] 6.25 mg PO BIDWM #30 tablet 11/02/16 [Rx] Cholecalciferol (D-3) [Vitamin D] 2,000 unit PO DAILY #15 tablet 11/02/16 [Rx] Cinacalcet [Sensipar] 60 mg PO DAILY #15 tablet 11/02/16 [Rx] Folic Acid 1 mg PO DAILY #15 tablet 11/02/16 [Rx] Furosemide [Lasix] 40 mg PO DAILY #7 vial 11/02/16 [Rx] Lisinopril [Zestril] 5 mg PO DAILY #15 tablet 11/02/16 [Rx] Potassium Chloride Elixir [Potassium Chloride] 20 meq PO DAILY #7 udc 11/02/16 [ Rx] Mupirocin Calcium [Bactroban] 15 gm TP BID #1 cream..g. 11/06/16 [Rx] Allergies No Known Allergies Allergy (Verified 12/11/16 23:18) All Systems PM: A 10-system review of systems was performed and is negative for pertinent findings except as documented above in the HPI. - Constitutional Vitals: Temp Pulse Resp BP Pulse Ox 98.8 F 114 20 118/92 98 12/12/16 05:14 12/12/16 05:14 12/12/16 05:14 12/12/16 05:14 12/12/16 05:14 Exam: General: Not in acute pain at the time of my evaluation HEENT: Oral mucosa is dry. No conjunctival palor or scleral icterus. Proptosis of the left eye Neck: Left neck swelling present Lungs: Right basal crackles present Cardiac: Irregular rhythm. No significant murmurs Abdomen: Soft, non tender. Bowel sounds present. Genitourinary: No correa catheter Neurological: Alert and oriented. No gross localizing deficits. Psych: Not aggressive or agitated Extremities: B/L leg edema present Skin: No generalized rash Internal Med - H&P Results - Labs CBC & Chem 7: 12/11/16 23:47 12/11/16 23:47 Labs: Short CBC 12/11/16 Range/Units 23:47 WBC 9.9 (4.3-11.1) K/mcL Hgb 14.2 (11.5-15.4) g/dL Hct 45.0 H (35.3-44.9) % Plt Count 98 L (140-400) K/mcL Neutrophils # 8.0 (1.6-8.9) K/mcL BMP 12/11/16 23:47 Sodium 126 L Potassium 4.3 Chloride 87 L Carbon Dioxide 18 L BUN 18 Creatinine 1.00 Glucose 125 H Calcium 12.6 H Cardiac Enzymes 12/11/16 Range/Units 23:47 Troponin I 0.13 H* (0-0.03) ng/mL Urine 12/12/16 Range/Units 01:49 Urine Color [place] A (Yellow) Urine Clarity [place] A (Clear) Urine pH 5.0 (5.0-8.0) pH Units Ur Specific [place] > 1.030 H (1.010-1.025) Urine Protein 100 H (Neg-Trace) mg/dL Urine Glucose (UA) Normal (Normal) mg/dL - ABG Interpretation ABG results: 12/11/16 23:47 VBG pH 7.34 VBG pCO2 48 VBG pO2 31 VBG HCO3 25.9 - EKG Data -: EKG Interpreted by Myself - EKG Data EKG comments: Atrial fibrillation with RVR; HR 130; T wave inversion in lead II, III and V6. 12/12/16 06:06 - Impressions ITS Impressions Chest X-Ray 12/11/16 23:38 IMPRESSION: 1. Airspace opacities identified in the mid and lower lung zones, right significantly worse than left. Small bilateral effusions. Findings are compatible with edema. Superimposed infection would be difficult to exclude. 2. COPD. D/ / [place] MD / [place] MD Interpreting Provider: [place] MD Abdomen/Pelvis CT 12/12/16 00:13 IMPRESSION: Persistent or recurrent right greater than left bibasilar pleural and parenchymal disease may represent manifestation of congestive heart failure and/or pneumonia. The heart is moderately enlarged and failure is suspected. Extensive body edema consistent with anasarca. There is trace free fluid in the peritoneal cavity. Thick bile/ sludge versus small gallstones. D/ / Gurjit Torres MD / Gurjit Torres MD Interpreting Provider: Gurjit Torres MD Chest CTA 12/12/16 00:18 IMPRESSION: No evidence of a pulmonary embolus. There is moderate cardiomegaly, right larger than left pleural effusions and multifocal airspace disease. Parenchymal disease likely represents combination of edema, pneumonia and compressive atelectasis. Congestive heart failure is suspected. There is a large filling defect in the superior aspect of the left atrium and left atrial appendage highly suspicious for clot and less likely tumor. Correlation with cardiac echo is recommended. D/ / Gurjit Torres MD / Gurjit Torres MD Interpreting Provider: Gurjit Torres MD
[2016-12-12] MEDS ORDERED: Naloxone 0.4 MG/ML INJ IVP PRN (06:25)
[2016-12-12] MEDS ORDERED: Furosemide 20 MG/2 ML VIAL IVP ONE (06:51)
[2016-12-12] MEDS ORDERED: Albuterol Neb 1.25 MG/3 ML VIAL IH PRN (06:51)
[2016-12-12 07:05] LABS: Basophils % 0.1 %; Hematocrit 37.6 % (35.3-44.9); Hemoglobin 12.4 g/dL (11.5-15.4); Immature Granulocytes % 0.6 % (0-4); Lymphocytes # 1.5 K/mcL (0.6-4.6); Lymphocytes % 15.5 %; Mean Corpuscular Volume 81.7 fL (83.0-100.0); Mean Platelet Volume 11.7 fL (9.4-12.4); Monocytes # 0.9 K/mcL (0.0-1.3); Monocytes % 8.7 %; Neutrophils # 7.4 K/mcL (1.6-8.9); Platelet Count 88 K/mcL (140-400); Red Cell Distribution Width 18.6 % (11.5-14.5); Segmented Neutrophils % 75.1 %
[2016-12-12 07:17] LABS: BUN/Creatinine Ratio 21 (6-26); Blood Urea Nitrogen 16 mg/dL (7-20); Calcium 11.6 mg/dL (8.6-10.8); Carbon Dioxide 21 mEq/L (19-29); Chloride 92 mEq/L (98-109); Glucose 127 mg/dL (70-99); Magnesium 1.4 mg/dL (1.6-2.6); Osmolality,Calculated 261 (280-300); Sodium 124 mEq/L (136-145); eGFR For African Americans > 60 (> 60); eGFR For Non-African Americans > 60 (> 60)
[2016-12-12] MEDS: Piperacillin/Tazobactam 3.375 GM in D5% in Water (Mini-Bag+) 100 ML IVPB SCH ×2 (09:00→15:26)
[2016-12-12] MEDS: Lactobacillus 1 EACH CAP.SPRINK PO SCH ×2 (09:00→22:25)
--- NOTE | 2016-12-12 09:34 | Nephrology Consult Note ---
Date of Encounter: 12/12/16 Time of Encounter: 09:32 Assessment and Plan (1) Hypercalcemia Current Visit: No Status: Acute Patient has a history of hypercalcemia. Previous evaluation back in October but to the diagnosis of primary hyperparathyroidism. We will recheck a PTH level and if elevated get her started on Sensipar. In the meantime IV Lasix for congestive heart failure should also help contribute to lowering her serum calcium. (2) Systolic heart failure Current Visit: No Status: Acute Qualifiers: Heart failure chronicity: acute on chronic Qualified Code(s): I50.23 - Acute on chronic systolic (congestive) heart failure History of Present Illness - History of Present Illness This is a 61-year-old female who was admitted with worsening symptoms of acute on chronic systolic congestive heart failure in the setting of a nonischemic cardiomyopathy. Patient has also been noted to have a left atrial thrombus. Patient was seen when she was hospitalized back in October for evaluation of hypercalcemia. At that time she was diagnosed with primary hyperparathyroidism. She was discharged on Sensipar 60 mg daily. She reports that after she left the hospital she was unable to get her medicines. Calcium at this time is ranged from 11.6-12.6. Renal function is normal. She presents with worsening lower extremity edema and shortness of breath. She also has a history of alcohol abuse. Past Med Surg Social Fam HX - Past Medical History Medical history: cardiomyopathy, CHF Psychiatric history: no psych history - Social History Smoking Status: Former smoker Smokeless Tobacco Status: No Alcohol use: none Drug use: none - Family History Mother History Unknown: Yes Medications and Allergies Aspirin 81 mg PO DAILY #30 tab.chew 11/02/16 [Rx] Carvedilol [Coreg] 6.25 mg PO BIDWM #30 tablet 11/02/16 [Rx] Cholecalciferol (D-3) [Vitamin D] 2,000 unit PO DAILY #15 tablet 11/02/16 [Rx] Cinacalcet [Sensipar] 60 mg PO DAILY #15 tablet 11/02/16 [Rx] Folic Acid 1 mg PO DAILY #15 tablet 11/02/16 [Rx] Furosemide [Lasix] 40 mg PO DAILY #7 vial 11/02/16 [Rx] Lisinopril [Zestril] 5 mg PO DAILY #15 tablet 11/02/16 [Rx] Potassium Chloride Elixir [Potassium Chloride] 20 meq PO DAILY #7 udc 11/02/16 [ Rx] Mupirocin Calcium [Bactroban] 15 gm TP BID #1 cream..g. 11/06/16 [Rx] Allergies No Known Allergies Allergy (Verified 12/11/16 23:18) Review of Systems Constitutional: weakness, weight gain Eyes: bilateral: blurred vision (patient denies), diplopia (patient denies) Nose, mouth and throat: no dizziness, no headache(s) Cardiovascular: dyspnea on exertion, leg edema, no chest pain, no palpitations Respiratory: dyspnea on exertion Gastrointestinal: bloating, no abdominal pain, no change in bowel habits Musculoskeletal: no muscle weakness, no numbness Integumentary: no hirsutism, no striae Neurological: as per HPI, weakness Psychiatric: no depression, no difficulty concentrating Endocrine: as per HPI Hematologic/Lymphatic: no easy bruising, no lymphadenopathy Exam - Vital Signs Vital signs: Initial Vital Signs Temp Pulse Resp BP Pulse Ox 0 F L 84 22 111/75 97 12/11/16 23:18 12/11/16 23:18 12/11/16 23:18 12/11/16 23:18 12/11/16 23:18 Vital Signs - Last 8 Hours Temp Pulse Resp BP Pulse Ox 12/12/16 08:32 97 12/12/16 07:14 96.8 F L 102 18 105/91 97 Intake and Output 12/11/16 12/12/16 12/12/16 23:59 07:59 15:59 Other: Weight 67.5 kg Patient Weight 12/12/16 23:59 Weight 67.5 kg - General Appearance Exam: Patient appears alert and oriented. She is in no acute distress. Neck is supple. Lungs diminished breath sounds. Heart irregular rate and rhythm. Abdomen is distended with ascites. Extremities show 3-4+ lower extremity swelling up to the thighs. Luns[place] catheter is in place. Results - Lab Results 12/12/16 06:54 12/12/16 06:54 Most recent lab results Calcium 11.6 mg/dL (8.6-10.8) H 12/12/16 06:54 Magnesium 1.4 mg/dL (1.6-2.6) L 12/12/16 06:54 Consult Discharge Plan - Plan Referrals: NO,PCP [Primary Care Provider] -
[2016-12-12 13:18] LABS: Activated Partial Thrombo Time 147.1 Seconds (26.0-36.0)
[2016-12-12 13:28] LABS: Heparin anti-factor XA UFH 0.25 IU/mL (0.30-0.70)
[2016-12-12] MEDS: Acetaminophen 325 MG TABLET PO PRN (15:26)
[2016-12-12] MEDS ORDERED: Permethrin Cream Rinse 60 ML LIQUID TP ONE (16:30)
--- NOTE | 2016-12-12 16:38 | Internal Med Progress Note ---
<Ingrid Walker - Last Filed: 12/12/16 17:46> Date of Encounter: 12/12/16 Time of Encounter: 16:33 - Assessment and plan (1) Left atrial thrombus Current Visit: Yes Status: Acute Assessment and plan: Results of echocardiogram reveals an echo density in the superior aspect of the left atrium 2.02.5 cm. Appearance is consistent with a thrombus. Patient is continuing heparin infusion. (2) Acute exacerbation of CHF (congestive heart failure) Current Visit: Yes Status: Acute Assessment and plan: Recent LVEF of 10-15%. Patient stated she could not get refills for her medications. She has been started on Lasix, cardiac diet, fluid restriction. Qualifiers: Congestive heart failure type: systolic Qualified Code(s): I50.23 - Acute on chronic systolic (congestive) heart failure (3) Elevated troponin Current Visit: Yes Status: Acute Assessment and plan: Trending down - Subjective Interval history: she is sitting up in bed comfortably she states that she no longer has dyspnea while on 2 L of oxygen she is hungry and requesting dinner she states her legs are still sore from the edema - Constitutional Vitals: Temp Pulse Resp BP Pulse Ox 96.3 F L 75 18 98/76 97 12/12/16 15:51 12/12/16 15:51 12/12/16 15:51 12/12/16 15:51 12/12/16 15:51 General appearance: Present: A&O X 3, pleasant, no acute distress, answers questions appropriately - Respiratory Respiratory exam: Present: decreased breath sounds. Absent: accessory muscle use, chest wall tenderness, respiratory distress, wheezes - Cardiovascular Cardiovascular exam: Present: irregular rhythm - GI/Abdominal GI/Abdominal exam: Present: normal bowel sounds. Absent: firm, guarding - Extremities Exam Extremities exam: Present: calf tenderness, pedal edema, radial pulses palpable and symetrical Internal Medicine: Result - Labs CBC & Chem 7: 12/12/16 06:54 12/12/16 06:54 Labs: Short CBC 12/12/16 Range/Units 06:54 WBC 9.8 (4.3-11.1) K/mcL Hgb 12.4 D (11.5-15.4) g/dL Hct 37.6 (35.3-44.9) % Plt Count 88 L (140-400) K/mcL Neutrophils # 7.4 (1.6-8.9) K/mcL BMP 12/12/16 06:54 Sodium 124 L Potassium 4.0 Chloride 92 L Carbon Dioxide 21 BUN 16 Creatinine 0.77 Glucose 127 H Calcium 11.6 H Cardiac Enzymes 12/12/16 Range/Units 06:54 Troponin I 0.11 H* (0-0.03) ng/mL - ABG Interpretation ABG results: PT/INR, D-dimer PT 22.6 Seconds (9.4-12.1) H 12/12/16 04:38 - VTE Reasons for not Prescribing Prophylaxis: Not indicated-Anticoagulated or INR therapeutic Documentation of Mechanical Device: Intermittent pneumatic compression device Consult Discharge Plan - Plan Referrals: NO,PCP [Primary Care Provider] - - Attending Attestation Dr. Patel <Travis Patel - Last Filed: 12/12/16 17:58> Date of Encounter: 12/12/16 - Constitutional Vitals: Temp Pulse Resp BP Pulse Ox 96.3 F L 75 18 98/76 97 12/12/16 15:51 12/12/16 15:51 12/12/16 15:51 12/12/16 15:51 12/12/16 15:51 Internal Medicine: Result - Labs CBC & Chem 7: 12/12/16 06:54 12/12/16 06:54 Labs: Short CBC 12/12/16 Range/Units 06:54 WBC 9.8 (4.3-11.1) K/mcL Hgb 12.4 D (11.5-15.4) g/dL Hct 37.6 (35.3-44.9) % Plt Count 88 L (140-400) K/mcL Neutrophils # 7.4 (1.6-8.9) K/mcL [facility] 12/12/16 06:54 Sodium 124 L Potassium 4.0 Chloride 92 L Carbon Dioxide 21 BUN 16 Creatinine 0.77 Glucose 127 H Calcium 11.6 H Cardiac Enzymes 12/12/16 Range/Units 06:54 Troponin I 0.11 H* (0-0.03) ng/mL - ABG Interpretation ABG results: PT/INR, D-dimer PT 22.6 Seconds (9.4-12.1) H 12/12/16 04:38 - Attending Attestation I examined this patient and my medical decision-making was reviewed with the MANAGER [employer]ERCIAL/PA/Advanced Practice Nurse/Resident Physician. I agree with the documented findings, disposition and treatment plan as described except to the extent set forth below. 61/F admitted with worsening edema feet. Known to have a primary hyper Parathyroidism. As worsening ejection fraction. Echocardiogram noted to have a left atrial thrombus. Plan: IV heparin. Close monitoring. guarded diuresis nephrology onboard
--- NOTE | 2016-12-12 18:16 | Venous Imaging Report ---
LE Venous Duplex Patient Name:Vinod Cook Order Number:[id number] Procedure Date:12/12/2016 Date:1955ge:61 yrs Gender:Female Location:[facility] ED Room #: ER02 [place] Operator:Jazmine Rock RDCS Referring MD:DO Alvin Hines MD:Gurjit Mathews MD Primary Indications:Swelling of limb Secondary Indications: Impressions: Acute deep venous thrombosis is present in the right gastrocnemius vein. Normal right lower extremity superficial venous exam. Normal bilateral lower extremity deep and superficial venous exam. Recommendations: Test completed on 12/12/2016 at 2:15:00 am. Critical findings reported to Dr Kingston in person at 2:17:00 am on 12/12/2016 by Jazmine Rock RDCS. Findings Venous Duplex Results: Right: Venous imaging of the lower extremity reveals full patency and normal vessel compressibility of the right distal iliac, right common femoral, right superficial femoral, right popliteal, right posterior tibial, right peroneal, right great saphenous and right lesser saphenous. Doppler signals in the evaluated veins were normal. There is an occlusive thrombus seen in the right gastrocnemius. It demonstrates an incompressible vein. Flow was absent and it did not augment. Left: Venous imaging of the lower extremity reveals full patency and normal vessel compressibility of the left distal iliac, left common femoral, left superficial femoral, left popliteal, left posterior tibial, left peroneal, left great saphenous and left lesser saphenous. Doppler signals in the evaluated veins were normal. Prior Study: No prior study available for comparison. Lower Extremity Venous Duplex Side Vein Compress Spontaneous Flow Augment Diameter (cm) Depth (cm) Right Distal Iliac Normal Yes Phasic Yes Right Common Femoral Normal Yes Phasic Yes Right Superficial Femoral Normal Yes Phasic Yes Right Popliteal Normal Yes Phasic Yes Right Posterior Tibial Normal Yes Phasic Yes Right Peroneal Normal Yes Phasic Yes Right Gastrocnemius None no Absent no Right Great Saphenous Normal Yes Phasic Yes Right Lesser Saphenous Normal Yes Phasic Yes Left Distal Iliac Normal Yes Phasic Yes Left Common Femoral Normal Yes Phasic Yes Left Superficial Femoral Normal Yes Phasic Yes Left Popliteal Normal Yes Phasic Yes Left Posterior Tibial Normal Yes Phasic Yes Left Peroneal Normal Yes Phasic Yes Left Great Saphenous Normal Yes Phasic Yes Left Lesser Saphenous Normal Yes Phasic Yes Updated by Gurjit Mathews MD on 12/12/2016 6:09:03 PM electronically signed on 12/12/2016 6:09:13 PM with status of Final
[2016-12-12] MEDS ORDERED: Furosemide 40 MG/4 ML VIAL IVP SCH (21:00)
[2016-12-13] MEDS: Piperacillin/Tazobactam 3.375 GM in D5% in Water (Mini-Bag+) 100 ML IVPB SCH ×4 (01:08→23:21)
[2016-12-13] MEDS: Vancomycin 1,250 MG in D5% in Water 250 ML IVPB SCH (04:38)
[2016-12-13 04:57] LABS: Basophils % 0.2 %; Immature Granulocytes % 0.3 % (0-4)
[2016-12-13 04:59] LABS: Eosinophils # 0.1 K/mcL (0.0-0.6); Eosinophils % 0.8 %; Hemoglobin 11.1 g/dL (11.5-15.4); Immature Platelets 10.7 % (1.1-6.1); Lymphocytes # 1.1 K/mcL (0.6-4.6); Lymphocytes % 16.4 %; Mean Corpuscular HGB Conc 32.6 g/dL (31.6-35.5); Mean Corpuscular Hemoglobin 26.5 pg (28.0-33.3); Mean Corpuscular Volume 81.1 fL (83.0-100.0); Mean Platelet Volume 10.7 fL (9.4-12.4); Monocytes # 0.5 K/mcL (0.0-1.3); Monocytes % 7.8 %; Neutrophils # 4.8 K/mcL (1.6-8.9); Red Blood Count 4.19 M/mcL (3.82-4.97); Red Cell Distribution Width 17.8 % (11.5-14.5); Segmented Neutrophils % 74.5 %
[2016-12-13 05:00] LABS: Platelet Count 87 K/mcL (140-400)
[2016-12-13 05:12] LABS: Alanine Aminotransferase 102 Units/L (0-55); Albumin 2.4 g/dL (3.5-5.0); Albumin/Globulin Ratio 0.9 (1.1-2.2); Alkaline Phosphatase 107 Units/L (38-126); Aspartate Amino Transferase 92 Units/L (5-34); BUN/Creatinine Ratio 18 (6-26); Bilirubin,Total 3.8 mg/dL (0.2-1.2); Blood Urea Nitrogen 14 mg/dL (7-20); Calcium 11.6 mg/dL (8.6-10.8); Carbon Dioxide 31 mEq/L (19-29); Chloride 92 mEq/L (98-109); Globulin 2.6 g/dL (2.4-3.5); Glucose 101 mg/dL (70-99); Osmolality,Calculated 269 (280-300); Potassium 3.3 mEq/L (3.5-4.5); Sodium 129 mEq/L (136-145); eGFR For African Americans > 60 (> 60); eGFR For Non-African Americans > 60 (> 60)
--- NOTE | 2016-12-13 08:48 | Nephrology Progress Note ---
Date of Encounter: 12/13/16 Time of Encounter: 08:30 - Assessment and Plan (1) Hypercalcemia Current Visit: No Status: Acute History of hypercalcemia, diagnosed with Primary hyperparathyroidism in October. Calcium 11.6, Lasix for CHF should help in lowering Ca level. PTH 321. will start on Sensipar. Subjective Interval history: Alert, unable to focus on conversation. Eating breakfast. Tachypneic, conversational SOB Objective - Vital Signs Vital signs: Vital Signs Temp Pulse Resp BP Pulse Ox 12/13/16 08:00 97.3 F L 90 16 105/84 99 12/13/16 04:26 97.3 F L 73 18 95/75 99 12/13/16 01:10 97 18 114/84 100 12/12/16 22:43 98.0 F 12/12/16 22:29 86/62 12/12/16 20:40 96.0 F L 90 16 90/71 100 12/12/16 15:51 96.3 F L 75 18 98/76 97 12/12/16 12:07 93.9 F L 88 18 116/81 99 Intake and Output 12/12/16 12/13/16 12/13/16 23:59 07:59 15:59 Intake Total 339 / 339 350 / 350 Output Total 1999 750 / 750 Balance -1661 / -1661 -400 / -400 Intake: IV Fluids 239 / 239 350 / 350 Heparin 25,000 UNIT/500 139 / 139 ML D5W 25,000 unit In 500 ml @ 14 UNIT/KG/HR 18. 289 mls/hr IVC .Q24H [facility] Rx#:[id number] Zosyn 3.375 GM In 100 / 100 100 / 100 Dextrose 5% (Minibag+) 100 ML 100 ML @ 25 mls/hr IVPB Q8HR [facility] Rx#: [id number] Vancocin 1,250 MG In 250 / 250 Dextrose 5% 250 ML @ 167 mls/hr IVPB Q24H [facility] Rx#: [id number] Oral 100 / 100 0 / 0 Output: Catheter 1999 750 / 750 Other: Weight 67.8 kg Patient Weight 12/13/16 23:59 Weight 67.8 kg - General Appearance General appearance: Present: chronically ill EENT: Present: mucous membranes moist Neck: Present: no JVD Respiratory: Present: clear Cardiology: Present: edema, regular rate, regular rhythm Additional Comments: pitting thighs down Gastrointestinal: Present: hypoactive bowel sounds, distended Integumentary: Present: warm and dry Psychiatric: Present: mood/affect appropriate, cooperative - Lab 12/13/16 04:44 12/13/16 04:44 Most recent lab results Calcium 11.6 mg/dL (8.6-10.8) H 12/13/16 04:44 Magnesium 1.4 mg/dL (1.6-2.6) L 12/12/16 06:54 - VTE Reasons for not Prescribing Prophylaxis: Not indicated-Anticoagulated or INR therapeutic Documentation of Mechanical Device: Intermittent pneumatic compression device Consult Discharge Plan - Plan Referrals: NO,PCP [Primary Care Provider] -
[2016-12-13] MEDS ORDERED: Furosemide 40 MG/4 ML VIAL IVP SCH (09:00)
[2016-12-13] MEDS: Lactobacillus 1 EACH CAP.SPRINK PO SCH ×2 (09:58→19:49)
[2016-12-13] MEDS: Furosemide 40 MG/4 ML VIAL IVP SCH ×2 (10:01→16:43)
--- NOTE | 2016-12-13 10:18 | Cardiology Consult Note ---
Date of Encounter: 12/13/16 Time of Encounter: 10:10 Assessment and Plan (1) HFrEF (heart failure with reduced ejection fraction) Current Visit: Yes Status: Acute HFrEF, recently diagnosed with a severe NICMP, LVEF 15%. Biventricular heart failure. Medical and likely dietary noncompliance since discharge. Did not followup with cardiology or PCP and did not take medications. ? alcoholic cardiomyopathy - she states she quit drinking. Negative 1200 cc since admision. Lactic acidosis better as hemodynamics improved. Medications: ACEi - No BB - No AA - No Diuretic - Lasix 40 mg IV BID. Device - No Recommend start low dose BB, Toprol XL 25 mg daily. If BP allows, start low dose ACEi. Consider aldosterone antagonist in future pending her response. Alcohol cessation emphasized. Medical and dietary compliance is essential. Strick I/Os, daily weights, monitor Cr. Qualifiers: Heart failure chronicity: acute on chronic Qualified Code(s): I50.23 - Acute on chronic systolic (congestive) heart failure (2) NICM (nonischemic cardiomyopathy) Current Visit: Yes Status: Acute (3) Confusion Current Visit: Yes Status: Acute Patient seems confused and noted to have nystagmus of left eye. Given LA thrombus, recommend head CT. (4) Atrial fibrillation Current Visit: No Status: Acute Atrial fibrillation, HR 90s-100s. Recommend start low dose BB and titrate as BP/HR tolerate. Currently on heparin drip, which is being bridged to coumadin. Qualifiers: Atrial fibrillation type: persistent Qualified Code(s): I48.1 - Persistent atrial fibrillation (5) Left atrial thrombus Current Visit: Yes Status: Acute Left atrial thrombus in setting of AF. DVT of LE also noted. Currently on heparin drip, bridging to Coumadin. Discussion w patient/family: The assessment and plan as outlined above was discussed with the patient and/or family members who expressed understanding and agreement. All questions were answered. Thank you for involving us in the care of your patient. Please call with any questions. History of Present Illness Consult date: 12/13/16 Requesting physician: Beth Rojas Consult reason: chf, abnormal echocardiogram Chief complaint: Shortness of breath History of present illness: Ms. Cook is a 61 year old female with history of alcoholism recently diagnosed with a NICMP, LVEF 10-15%. Since prior discharge, she has not taken medications and did not followup with cardiology. Returned with complaint of shortness of breath, orthopnea. CTA 12/12/2016: Moderate cardiomegaly, right > left effusion, large filling defect in LA suspicous for clot. Venous Doppler 12/12/2016: Acute DVT right gastrocnemius vein. TTE 12/12/2016: AF with RVR. Severely dilated LV, EF 15-20%. Global hypokinesis. Dilated RV with mild hypokinesis. Severe biatrial enlargement. Echodensity noted in the LA, 2 x 2.5 cm, c/w thrombus. [facility] 11/2016: Normal coronary arteries. LVEF 15%. Lactic acid 12/11 6.5, 12/13 1.2. Past Med Surg Social Fam HX - Past Medical History Medical history: cardiomyopathy, CHF Psychiatric history: no psych history - Social History Smoking Status: Former smoker Smokeless Tobacco Status: No Alcohol use: none Drug use: none - Family History Mother History Unknown: Yes Medications and Allergies Aspirin 81 mg PO DAILY #30 tab.chew 11/02/16 [Rx] Carvedilol [Coreg] 6.25 mg PO BIDWM #30 tablet 11/02/16 [Rx] Cholecalciferol (D-3) [Vitamin D] 2,000 unit PO DAILY #15 tablet 11/02/16 [Rx] Cinacalcet [Sensipar] 60 mg PO DAILY #15 tablet 11/02/16 [Rx] Folic Acid 1 mg PO DAILY #15 tablet 11/02/16 [Rx] Furosemide [Lasix] 40 mg PO DAILY #7 vial 11/02/16 [Rx] Lisinopril [Zestril] 5 mg PO DAILY #15 tablet 11/02/16 [Rx] Potassium Chloride Elixir [Potassium Chloride] 20 meq PO DAILY #7 udc 11/02/16 [ Rx] Allergies No Known Allergies Allergy (Verified 12/11/16 23:18) All Systems Review: A 10-system review of systems was performed and is negative for pertinent findings except as documented above in the HPI. - Constitutional Constitutional: malaise - Cardiovascular Cardiovascular: as per HPI, dyspnea at rest, dyspnea on exertion, leg edema, orthopnea - Neurological Neurological: abnormal speech, other (confused) Physical Examination Vital Signs, Last 4 Hours Temp Pulse Resp BP Pulse Ox 12/13/16 08:00 97.3 F L 90 16 105/84 99 General: Conversant, Other (Seems confused, nystagmus noted, disheveled, chronically ill appearing. ) HEENT: Atraumatic, Normocephaly, Mucus Membranes Moist Neck: Other (JVD noted) Cardiac: Other (irregular rate and rhythm) Lungs: Other (Shallow ) Neuro: Other (Asnwers some questions coherently, but confused majority of examination) Abdomen: Soft, Non-Tender Skin: No rashes noted on visualized skin Musculoskeletal: No Chest Wall Tenderness Extremities: Other (Bilateral LE edema moderate. ) Results 12/13/16 04:44 12/13/16 04:44 Lab Results 12/12/16 12/12/16 12/13/16 12:10 20:22 04:44 WBC Hgb Hct Plt Count APTT 147.1 H* D 103.0 H Sodium 129 L Potassium 3.3 L Chloride 92 L Carbon Dioxide 31 H BUN 14 Creatinine 0.76 Glucose 101 H Calcium 11.6 H Total Bilirubin 3.8 H AST 92 H ALT 102 H Alkaline Phosphatase 107 12/13/16 12/13/16 04:44 04:44 WBC 6.4 Hgb 11.1 L Hct 34.0 L Plt Count 87 L APTT 65.5 H Sodium Potassium Chloride Carbon Dioxide BUN Creatinine Glucose Calcium Total Bilirubin AST ALT Alkaline Phosphatase - Imaging and Cardiology Echo: report reviewed - EKG Interpretation EKG results cardiology: personally reviewed Consult Discharge Plan - Plan Referrals: NO,PCP [Primary Care Provider] -
[2016-12-13 11:23] LABS: INR 1.6; Prothrombin Time 17.1 Seconds (9.4-12.1)
[2016-12-13] MEDS: Metoprolol XL (24 HR) Succ 25 MG TAB.ER.24H PO SCH (12:42)
--- NOTE | 2016-12-13 12:44 | Internal Med Progress Note ---
Date of Encounter: 12/13/16 Time of Encounter: 10:10 - Assessment and plan (1) Acute exacerbation of CHF (congestive heart failure) Current Visit: Yes Status: Acute Assessment and plan: Continue current management with Lasix. Cardiology consulted. Recommended starting patient on low-dose beta lenny. Monitor blood pressure, input and output closely. O2 supplementation as needed. Daily weights. High risk for complications. Qualifiers: Congestive heart failure type: systolic Qualified Code(s): I50.23 - Acute on chronic systolic (congestive) heart failure (2) Pneumonia Current Visit: Yes Status: Acute Assessment and plan: On broad-spectrum IV antibiotics. WBC count is normal. If WBC count remains normal without any fever, we will de-escalate antibiotics tomorrow. Qualifiers: Pneumonia type: due to unspecified organism Laterality: bilateral Lung location: unspecified part of lung Qualified Code(s): J18.9 - Pneumonia, unspecified organism (3) Left atrial thrombus Current Visit: Yes Status: Acute Assessment and plan: On IV heparin. We will start Coumadin today. (4) Hyperbilirubinemia Current Visit: Yes Status: Acute Assessment and plan: Uncertain etiology. This is chronically elevated for patient. Prior labs show elevated direct fraction. Ultrasound of the abdomen done in October shows no abnormalities with the gallbladder without any cholelithiasis. Liver also has normal echogenicity without any signs of cirrhosis. There was coarse echotexture. Liver enzymes are slightly elevated. (5) Atrial fibrillation with RVR Current Visit: Yes Status: Chronic Assessment and plan: Rate controlled. On anticoagulation with IV heparin. On beta lenny. (6) Dysphagia Current Visit: Yes Status: Acute Assessment and plan: Evaluated by physical therapy. Patient is currently on advanced soft diet with thin liquids. Qualifiers: Dysphagia type: oropharyngeal phase Qualified Code(s): R13.12 - Dysphagia, oropharyngeal phase (7) Elevated troponin Current Visit: Yes Status: Acute Assessment and plan: Likely from demand ischemia in setting of cardiomyopathy. No chest pain. Continue home medications. (8) Hypercalcemia Current Visit: No Status: Acute (9) Lactic acidosis Current Visit: Yes Status: Resolved (10) Sepsis Current Visit: Yes Status: Suspected Qualifiers: Sepsis type: sepsis due to unspecified organism Qualified Code(s): A41.9 - Sepsis, unspecified organism (11) Thrombocytopenia Current Visit: Yes Status: Chronic Assessment and plan: Platelet levels have been stable despite use of IV heparin. We will monitor closely. (12) Scabies Current Visit: Yes Status: Acute Assessment and plan: Treated with permethrin topically - Subjective Interval history: Patient is awake and alert. Complains of some shortness of breath. No chest pain. No abdominal pain nausea or vomiting. - Constitutional Vitals: Temp Pulse Resp BP Pulse Ox 96.7 F L 91 16 94/78 98 12/13/16 11:58 12/13/16 11:58 12/13/16 11:58 12/13/16 11:58 12/13/16 11:58 General appearance: Present: A&O X 2, mild distress, pleasant, no acute distress , answers questions appropriately - Eye Eye exam: Present: EOMI, nystagmus, PERRL, scleral icterus, conjuntiva pink, sclera anicteric - Neck Neck exam general surgery: Present: supple, trachea midline. Absent: lymphadenopathy - Respiratory Respiratory exam: Present: prolonged expiratory phase. Absent: accessory muscle use, rales, rhonchi, wheezes - Cardiovascular Cardiovascular exam: Present: irregular rhythm, +S1, +S2. Absent: diastolic murmur, gallop, rubs, systolic murmur - GI/Abdominal GI/Abdominal exam: Present: normal bowel sounds, soft, no peritoneal signs. Absent: distended, tenderness - Extremities Exam Extremities exam: Present: pedal edema, warm, radial pulses palpable and symetrical. Absent: calf tenderness, cyanotic - Neurological Exam Neurological exam: Present: alert, no focal deficits. Absent: facial droop, speech deficit - Skin Skin exam: Present: dry, intact Additional comments: Jaundice Internal Medicine: Result - Labs CBC & Chem 7: 12/13/16 04:44 12/13/16 04:44 Labs: Short CBC 12/13/16 Range/Units 04:44 WBC 6.4 (4.3-11.1) K/mcL Hgb 11.1 L (11.5-15.4) g/dL Hct 34.0 L (35.3-44.9) % Plt Count 87 L (140-400) K/mcL Neutrophils # 4.8 (1.6-8.9) K/mcL BMP 12/13/16 04:44 Sodium 129 L Potassium 3.3 L Chloride 92 L Carbon Dioxide 31 H BUN 14 Creatinine 0.76 Glucose 101 H Calcium 11.6 H Liver Function 12/13/16 Range/Units 04:44 Total Bilirubin 3.8 H (0.2-1.2) mg/dL AST 92 H (5-34) Units/L ALT 102 H (0-55) Units/L Alkaline Phosphatase 107 (38-126) Units/L Albumin 2.4 L (3.5-5.0) g/dL - ABG Interpretation ABG results: PT/INR, D-dimer PT 17.1 Seconds (9.4-12.1) H 12/13/16 10:59 - Impressions Impressions Chest X-Ray 12/13/16 09:58 IMPRESSION: Cardiomegaly with bilateral pleural effusions and bibasilar opacities likely representing atelectasis and/or consolidation from pneumonia. D/ / Hong Lane MD / Hong Lane MD Interpreting Provider: Hong Lane MD Head CT 12/13/16 10:31 IMPRESSION: No acute intracranial abnormality. D/ / Edgard Guerrero MD / Edgard Guerrero MD Interpreting Provider: Edgard Guerrero MD - VTE Reasons for not Prescribing Prophylaxis: Not indicated-Anticoagulated or INR therapeutic Documentation of Mechanical Device: Intermittent pneumatic compression device Consult Discharge Plan - Plan Instructions: Heart Failure (DC), Atrial Fibrillation (DC), Pacemaker (DC), Chronic Dysphagia (DC), Pneumonia (DC) Referrals: NO,PCP [Primary Care Provider] -
[2016-12-13] MEDS: Heparin 25,000 UNIT/500 ML D5W 25,000 UNIT/500 ML MLS IVC SCH (14:53)
[2016-12-13] MEDS: Potassium Chloride Elixir 20 MEQ/15 ML UDC PO SCH (16:41)
[2016-12-13] MEDS ORDERED: *HR* Warfarin 5 MG TABLET PO ONE (18:00)
[2016-12-13] MEDS ORDERED: Warfarin perPT PO PRN (18:00)
[2016-12-13 18:43] LABS: Basophils % 0.1 %; Eosinophils % 0.3 %; Hematocrit 38.3 % (35.3-44.9); Hemoglobin 12.2 g/dL (11.5-15.4); Immature Granulocytes % 0.3 % (0-4); Lymphocytes # 0.5 K/mcL (0.6-4.6); Lymphocytes % 6.9 %; Mean Corpuscular HGB Conc 31.9 g/dL (31.6-35.5); Mean Corpuscular Hemoglobin 26.3 pg (28.0-33.3); Mean Corpuscular Volume 82.5 fL (83.0-100.0); Mean Platelet Volume 10.7 fL (9.4-12.4); Monocytes # 0.7 K/mcL (0.0-1.3); Monocytes % 8.7 %; Neutrophils # 6.5 K/mcL (1.6-8.9); Platelet Count 112 K/mcL (140-400); Red Blood Count 4.64 M/mcL (3.82-4.97); Red Cell Distribution Width 17.8 % (11.5-14.5); Segmented Neutrophils % 83.7 %
[2016-12-13] MEDS ORDERED: Ondansetron 4 MG/2 ML VIAL IVP PRN (19:40)
[2016-12-14 03:40] LABS: Basophils % 0.1 %; Eosinophils % 0.3 %; Hematocrit 36.1 % (35.3-44.9); Hemoglobin 11.5 g/dL (11.5-15.4); Immature Granulocytes % 0.3 % (0-4); Lymphocytes # 0.6 K/mcL (0.6-4.6); Lymphocytes % 8.2 %; Mean Corpuscular HGB Conc 31.9 g/dL (31.6-35.5); Mean Corpuscular Hemoglobin 26.3 pg (28.0-33.3); Mean Corpuscular Volume 82.6 fL (83.0-100.0); Mean Platelet Volume 11.3 fL (9.4-12.4); Monocytes # 0.5 K/mcL (0.0-1.3); Monocytes % 7.2 %; Neutrophils # 5.9 K/mcL (1.6-8.9); Platelet Count 145 K/mcL (140-400); Red Blood Count 4.37 M/mcL (3.82-4.97); Red Cell Distribution Width 17.6 % (11.5-14.5); Segmented Neutrophils % 83.9 %
[2016-12-14 03:46] LABS: INR 1.4; Prothrombin Time 15.2 Seconds (9.4-12.1)
[2016-12-14 03:53] LABS: BUN/Creatinine Ratio 17 (6-26); Blood Urea Nitrogen 12 mg/dL (7-20); Carbon Dioxide 35 mEq/L (19-29); Chloride 88 mEq/L (98-109); Glucose 106 mg/dL (70-99); Osmolality,Calculated 276 (280-300); Potassium 2.8 mEq/L (3.5-4.5); Sodium 133 mEq/L (136-145); eGFR For African Americans > 60 (> 60); eGFR For Non-African Americans > 60 (> 60)
[2016-12-14] MEDS: Vancomycin 1,250 MG in D5% in Water 250 ML IVPB SCH (04:57)
[2016-12-14] MEDS ORDERED: Potassium Chloride 40 MEQ, Lidocaine 1% 2 ML in D5% in Water 500 ML IVPB ONE (07:17)
[2016-12-14] MEDS ORDERED: Aminoglycoside Consult 1 EACH MC ONE (08:31)
--- NOTE | 2016-12-14 09:01 | Event Note ---
Date of Encounter: 12/14/16 Time of Encounter: 09:00 The patient's calcium slowly improving. Stent 11.0. She should continue on the Sensipar even as an outpatient. She should have follow-up within several weeks of hospital discharge. Nephrology will sign off. Please call again if needed.
--- NOTE | 2016-12-14 09:01 | Cardiology Progress Note ---
Date of Encounter: 12/14/16 Time of Encounter: 08:57 Assessment and Plan (1) Left atrial thrombus Current Visit: Yes Status: Acute Left atrial thrombus in setting of AF. DVT of LE also noted. Currently on heparin drip, bridging to Coumadin. Will consult hematology for recommendations for anticoagulation due to patient presenting in hypercoagulable state this admission and previous admission. (2) HFrEF (heart failure with reduced ejection fraction) Current Visit: Yes Status: Acute HFrEF, recently diagnosed with a severe NICMP, LVEF 15%. Biventricular heart failure. Medical and likely dietary noncompliance since discharge. Did not followup with cardiology or PCP and did not take medications. Likely alcoholic cardiomyopathy - she states she quit drinking. Negative 3886 cc since admission. Started low dose beta-lenny. Unable to start ACEi d/t hypotension. Continue IV diuresis. Importance of medication compliance and low sodium diet reviewed with patient. Potassium 2.8- on replacement. Strick I/Os, daily weights, monitor Cr. Will likely need at least 24 more hours of IV lasix. Maintenance lasix at discharge. [facility] will coordinate out patient f/u. Cardiology will sign off. Call with questions. Qualifiers: Heart failure chronicity: acute on chronic Qualified Code(s): I50.23 - Acute on chronic systolic (congestive) heart failure (3) NICM (nonischemic cardiomyopathy) Current Visit: Yes Status: Acute (4) Atrial fibrillation Current Visit: No Status: Acute Atrial fibrillation, HR 80-90's. AVg HR 83 bpm over last 12 hours. Recommend start low dose BB and titrate as BP/HR tolerate. Currently on heparin drip, which is being bridged to coumadin. Hematology consulted for INR goal recommendations. INR 2.1 on admission, not on anticoagulation. I will start referral to coumadin clinic. Qualifiers: Atrial fibrillation type: persistent Qualified Code(s): I48.1 - Persistent atrial fibrillation Discussion w patient/family: The assessment and plan as outlined above was discussed with the patient and/or family members who expressed understanding and agreement. All questions were answered. Thank you for involving us in the care of your patient. Please call with any questions. Subjective Principal diagnosis: LA thromus, acute on chronic systolic CHF, non-compliance Interval history: Ms. Cook is alert and oriented. She does not seem to understand her diagnosis. She became agitated about family stressors during my exam. Objective Vital Signs, Last 4 Hours Temp Pulse Resp BP Pulse Ox 12/14/16 07:42 97.6 F 88 16 90/70 98 General: Conversant, No Apparent Distress HEENT: Atraumatic, Normocephaly, Mucus Membranes Moist Neck: No JVD, Normal carotid pulses Cardiac: Other (irregularly irregular.) Lungs: Normal Breath Sounds, No Wheeze, Rales, Rhonchi Neuro: Alert and responsive, No focal deficits noted Abdomen: Soft, Non-Tender Skin: No rashes noted on visualized skin Musculoskeletal: No Chest Wall Tenderness Extremities: No Clubbing, No Cyanosis, Normal Pulses, Other (1+ edema up to knees) Results 12/14/16 03:19 12/14/16 03:19 Lab Results 12/13/16 12/13/16 12/14/16 10:59 18:33 03:19 WBC 7.8 7.1 Hgb 12.2 11.5 Hct 38.3 36.1 Plt Count 112 L 145 INR 1.6 APTT 60.0 H Sodium Potassium Chloride Carbon Dioxide BUN Creatinine Glucose Calcium 12/14/16 12/14/16 03:19 03:19 WBC Hgb Hct Plt Count INR 1.4 APTT Sodium 133 L Potassium 2.8 L Chloride 88 L Carbon Dioxide 35 H BUN 12 Creatinine 0.72 Glucose 106 H Calcium 11.0 H - VTE Reasons for not Prescribing Prophylaxis: Not indicated-Anticoagulated or INR therapeutic Documentation of Mechanical Device: Intermittent pneumatic compression device Consult Discharge Plan - Plan Instructions: Heart Failure (DC), Atrial Fibrillation (DC), Pacemaker (DC), Chronic Dysphagia (DC), Pneumonia (DC) Additional Instructions: follow up resident clinic on 12-22-16 @ 9:00 am Referrals: NO,PCP [Primary Care Provider] -
[2016-12-14] MEDS: Potassium Chloride Elixir 20 MEQ/15 ML UDC PO SCH (09:43)
[2016-12-14] MEDS: Lactobacillus 1 EACH CAP.SPRINK PO SCH ×2 (09:47→21:20)
[2016-12-14] MEDS: Metoprolol XL (24 HR) Succ 25 MG TAB.ER.24H PO SCH (09:51)
[2016-12-14] MEDS: Piperacillin/Tazobactam 3.375 GM in D5% in Water (Mini-Bag+) 100 ML IVPB SCH (10:40)
[2016-12-14] MEDS: Furosemide 40 MG TABLET PO SCH ×2 (10:43→18:14)
[2016-12-14 10:45] LABS: Albumin 2.7 g/dL (3.5-5.0); Bilirubin,Direct 2.6 mg/dL (0.0-0.5); Total Protein 5.9 g/dL (6.0-8.3)
[2016-12-14 10:46] LABS: Albumin/Globulin Ratio 0.8 (1.1-2.2); Globulin 3.2 g/dL (2.4-3.5)
[2016-12-14 10:47] LABS: Bilirubin,Total 3.6 mg/dL (0.2-1.2)
[2016-12-14 11:09] LABS: Hepatitis A Antibody IgM Nonreactive (Nonreactive); Hepatitis B Core IgM Nonreactive (Nonreactive); Hepatitis B Surface Antigen Nonreactive (Nonreactive); Hepatitis C Virus Antibody Nonreactive (Nonreactive)
[2016-12-14] MEDS ORDERED: Magnesium Sulfate 2 GM in D5% in Water 100 ML IVPB ONE (11:40)
--- NOTE | 2016-12-14 12:31 | Electrocardiograph Report ---
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
[2016-12-14] MEDS: levoFLOXacin 500 MG TABLET PO SCH (13:21)
--- NOTE | 2016-12-14 13:36 | Internal Med Progress Note ---
Date of Encounter: 12/14/16 Time of Encounter: 10:00 - Assessment and plan (1) Acute exacerbation of CHF (congestive heart failure) Current Visit: Yes Status: Acute Assessment and plan: Responded well to IV Lasix. We will transition to oral Lasix. Continue fluid restriction. Monitor vital signs closely. Qualifiers: Congestive heart failure type: systolic Qualified Code(s): I50.23 - Acute on chronic systolic (congestive) heart failure (2) Pneumonia Current Visit: Yes Status: Acute Assessment and plan: Based on CT scan findings of bilateral is pleased disease. WBC count is normal. No fever. We will de-escalate antibiotics. Switch to levofloxacin. Stop Zosyn and vancomycin. Qualifiers: Pneumonia type: due to unspecified organism Laterality: bilateral Lung location: unspecified part of lung Qualified Code(s): J18.9 - Pneumonia, unspecified organism (3) Left atrial thrombus Current Visit: Yes Status: Acute Assessment and plan: On IV heparin. High risk for complications due to IV heparin use. Started on Coumadin also. INR 1.4. (4) Hyperbilirubinemia Current Visit: Yes Status: Acute Assessment and plan: Uncertain etiology. Liver enzymes slightly abnormal. Hepatitis viral panel is nonreactive. (5) Atrial fibrillation with RVR Current Visit: Yes Status: Chronic Assessment and plan: On anticoagulation with heparin. Rate controlled. (6) Dysphagia Current Visit: Yes Status: Resolved Assessment and plan: Patient is able to eat and swallow better today. Continue current diet. Qualifiers: Dysphagia type: oropharyngeal phase Qualified Code(s): R13.12 - Dysphagia, oropharyngeal phase (7) Hypercalcemia Current Visit: Yes Status: Acute Assessment and plan: Calcium 11. On Sensipar. Appreciate nephrology input. (8) Lactic acidosis Current Visit: Yes Status: Resolved (9) Sepsis Current Visit: Yes Status: Ruled-out Assessment and plan: Blood cultures are negative. Elevated lactate present on admission has now resolved. Likely related to liver dysfunction rather than sepsis. We will de- escalate antibiotics to treat pneumonia. Sepsis ruled out. Qualifiers: Sepsis type: sepsis due to unspecified organism Qualified Code(s): A41.9 - Sepsis, unspecified organism (10) Thrombocytopenia Current Visit: Yes Status: Chronic Assessment and plan: Platelet counts at 145 today. (11) Scabies Current Visit: Yes Status: Acute Assessment and plan: Treated with topical permethrin. (12) DVT (deep venous thrombosis) Current Visit: Yes Status: Acute Assessment and plan: Acute right gastrocnemius vein DVT. On IV heparin. Qualifiers: DVT location: lower extremity Affected thrombotic vein of extremity: other lower extremity vein Chronicity: acute Laterality: right Qualified Code(s) : I82.491 - Acute embolism and thrombosis of other specified deep vein of right lower extremity - Subjective Interval history: Patient is feeling better today. Yesterday evening she developed nausea and threw up her pills and Jell-O that she eat last evening. She is able to keep her food down better this morning and is less nauseated. She also feels that her swelling in her lower extremities has been improved significantly. Denies any chest pain today. No shortness of breath. - Constitutional Vitals: Temp Pulse Resp BP Pulse Ox 97.6 F 96 16 94/40 100 12/14/16 12:19 12/14/16 12:19 12/14/16 12:19 12/14/16 12:19 12/14/16 12:19 General appearance: Present: A&O X 2, mild distress, pleasant, no acute distress , answers questions appropriately - Eye Eye exam: Present: PERRL, scleral icterus, conjuntiva pink - Respiratory Respiratory exam: Present: CTAB. Absent: accessory muscle use, rales, rhonchi, wheezes - Cardiovascular Cardiovascular exam: Present: irregular rhythm, +S1, +S2. Absent: diastolic murmur, gallop, rubs, systolic murmur - GI/Abdominal GI/Abdominal exam: Present: normal bowel sounds, soft, no peritoneal signs. Absent: distended, tenderness - Extremities Exam Extremities exam: Present: pedal edema, warm, radial pulses palpable and symetrical. Absent: calf tenderness, cyanotic - Neurological Exam Neurological exam: Present: alert, oriented X3, no focal deficits. Absent: facial droop, speech deficit - Skin Skin exam: Present: dry, intact Additional comments: Jaundice Internal Medicine: Result - Labs CBC & Chem 7: 12/14/16 03:19 12/14/16 03:19 Labs: Short CBC 12/13/16 12/14/16 Range/Units 18:33 03:19 WBC 7.8 7.1 (4.3-11.1) K/mcL Hgb 12.2 11.5 (11.5-15.4) g/dL Hct 38.3 36.1 (35.3-44.9) % Plt Count 112 L 145 (140-400) K/mcL Neutrophils # 6.5 5.9 (1.6-8.9) K/mcL BMP 12/14/16 03:19 Sodium 133 L Potassium 2.8 L Chloride 88 L Carbon Dioxide 35 H BUN 12 Creatinine 0.72 Glucose 106 H Calcium 11.0 H Liver Function 12/14/16 Range/Units 10:22 Total Bilirubin 3.6 H (0.2-1.2) mg/dL Direct Bilirubin 2.6 H (0.0-0.5) mg/dL AST 78 H (5-34) Units/L ALT 103 H (0-55) Units/L Alkaline Phosphatase 139 H (38-126) Units/L Albumin 2.7 L (3.5-5.0) g/dL - ABG Interpretation ABG results: PT/INR, D-dimer PT 15.2 Seconds (9.4-12.1) H 12/14/16 03:19 - VTE Reasons for not Prescribing Prophylaxis: Not indicated-Anticoagulated or INR therapeutic Documentation of Mechanical Device: Intermittent pneumatic compression device Consult Discharge Plan - Plan Instructions: Heart Failure (DC), Atrial Fibrillation (DC), Pacemaker (DC), Chronic Dysphagia (DC), Pneumonia (DC) Additional Instructions: follow up resident clinic on 12-22-16 @ 9:00 am Referrals: NO,PCP [Primary Care Provider] -
[2016-12-14] MEDS ORDERED: *HR* Warfarin 5 MG TABLET PO ONE (18:00)
[2016-12-14] MEDS: Acetaminophen 325 MG TABLET PO PRN (21:20)
[2016-12-15 05:55] LABS: INR 1.8; Prothrombin Time 19.4 Seconds (9.4-12.1)
[2016-12-15 05:59] LABS: BUN/Creatinine Ratio 16 (6-26); Blood Urea Nitrogen 11 mg/dL (7-20); Calcium 10.3 mg/dL (8.6-10.8); Carbon Dioxide 35 mEq/L (19-29); Chloride 86 mEq/L (98-109); Glucose 92 mg/dL (70-99); Osmolality,Calculated 273 (280-300); Potassium 3.1 mEq/L (3.5-4.5); Sodium 132 mEq/L (136-145); eGFR For African Americans > 60 (> 60); eGFR For Non-African Americans > 60 (> 60)
[2016-12-15] MEDS: Heparin 25,000 UNIT/500 ML D5W 25,000 UNIT/500 ML MLS IVC SCH (09:37)
[2016-12-15] MEDS: levoFLOXacin 500 MG TABLET PO SCH (09:39)
[2016-12-15] MEDS: Potassium Chloride Elixir 20 MEQ/15 ML UDC PO SCH (09:39)
[2016-12-15] MEDS: Lactobacillus 1 EACH CAP.SPRINK PO SCH ×2 (09:39→20:53)
[2016-12-15] MEDS: Furosemide 20 MG TABLET PO SCH ×2 (12:15→18:29)
[2016-12-15] MEDS: Sennosides 8.6 MG TABLET PO SCH ×2 (12:15→20:53)
[2016-12-15] MEDS: Metoprolol XL (24 HR) Succ 25 MG TAB.ER.24H PO SCH (12:15)
--- NOTE | 2016-12-15 16:15 | Internal Med Progress Note ---
Date of Encounter: 12/15/16 Time of Encounter: 10:30 - Assessment and plan (1) Acute exacerbation of CHF (congestive heart failure) Current Visit: Yes Status: Acute Assessment and plan: Clinically getting better. However blood pressure is on the lower side. We will decrease Lasix dosage to 20 mg by mouth twice a day. Monitor vital signs closely. Moderate risk for complications. Qualifiers: Congestive heart failure type: systolic Qualified Code(s): I50.23 - Acute on chronic systolic (congestive) heart failure (2) Pneumonia Current Visit: Yes Status: Acute Assessment and plan: WBC count remains normal. Cultures are negative. Complete short course of Levaquin Qualifiers: Pneumonia type: due to unspecified organism Laterality: bilateral Lung location: unspecified part of lung Qualified Code(s): J18.9 - Pneumonia, unspecified organism (3) Left atrial thrombus Current Visit: Yes Status: Acute Assessment and plan: On anticoagulation with heparin and Coumadin. Cardiology following. Cardiology recommends evaluation by hematology regarding hypercoagulability. We will arrange for follow-up as outpatient. (4) Hyperbilirubinemia Current Visit: Yes Status: Chronic Assessment and plan: Chronic and stable. Uncertain etiology. Recommend outpatient follow-up with GI (5) Atrial fibrillation with RVR Current Visit: Yes Status: Chronic Assessment and plan: Rate controlled. And on anticoagulation. Given low blood pressure, we will decrease metoprolol dosage to 12.5 (6) Hypercalcemia Current Visit: Yes Status: Resolved Assessment and plan: 10.3 today. (7) Lactic acidosis Current Visit: Yes Status: Resolved (8) Thrombocytopenia Current Visit: Yes Status: Resolved (9) Scabies Current Visit: Yes Status: Acute Assessment and plan: Treated with permethrin (10) DVT (deep venous thrombosis) Current Visit: Yes Status: Acute Assessment and plan: On heparin and Coumadin. Qualifiers: DVT location: lower extremity Affected thrombotic vein of extremity: other lower extremity vein Chronicity: acute Laterality: right Qualified Code(s) : I82.491 - Acute embolism and thrombosis of other specified deep vein of right lower extremity (11) Hypokalemia Current Visit: No Status: Acute Assessment and plan: Improving with oral replacement - Subjective Interval history: Patient continues to improve. No new complaints reported today. No hematemesis or melena. No chest pain. Shortness of breath is improving. Lower extremity swelling is also improving. - Constitutional Vitals: Temp Pulse Resp BP Pulse Ox 98.6 F 86 18 80/52 93 12/15/16 12:32 12/15/16 12:32 12/15/16 12:32 12/15/16 12:32 12/15/16 12:32 General appearance: Present: cooperative, A&O X 2, mild distress, pleasant, no acute distress, answers questions appropriately - Respiratory Respiratory exam: Present: CTAB. Absent: accessory muscle use, rales, rhonchi, wheezes - Cardiovascular Cardiovascular exam: Present: RRR, +S1, +S2. Absent: diastolic murmur, gallop, rubs, systolic murmur - GI/Abdominal GI/Abdominal exam: Present: normal bowel sounds, soft, no peritoneal signs. Absent: distended, tenderness - Extremities Exam Extremities exam: Present: pedal edema, warm, radial pulses palpable and symetrical. Absent: calf tenderness, cyanotic - Neurological Exam Neurological exam: Present: alert, oriented X3, no focal deficits. Absent: facial droop, speech deficit Internal Medicine: Result - Labs CBC & Chem 7: 12/14/16 03:19 12/15/16 04:44 Labs: BMP 12/15/16 04:44 Sodium 132 L Potassium 3.1 L Chloride 86 L Carbon Dioxide 35 H BUN 11 Creatinine 0.69 Glucose 92 Calcium 10.3 - ABG Interpretation ABG results: PT/INR, D-dimer PT 19.4 Seconds (9.4-12.1) H 12/15/16 04:44 - VTE Reasons for not Prescribing Prophylaxis: Not indicated-Anticoagulated or INR therapeutic Documentation of Mechanical Device: Intermittent pneumatic compression device Consult Discharge Plan - Plan Instructions: Heart Failure (DC), Atrial Fibrillation (DC), Pacemaker (DC), Chronic Dysphagia (DC), Pneumonia (DC) Additional Instructions: follow up resident clinic on 12-22-16 @ 9:00 am Referrals: NO,PCP [Primary Care Provider] -
[2016-12-15] MEDS ORDERED: Potassium Chloride Elixir 20 MEQ/15 ML UDC PO SCH (17:00)
[2016-12-15] MEDS ORDERED: *HR* Warfarin 2 MG TABLET PO ONE (18:00)
--- NOTE | 2016-12-15 19:38 | Oncology Inp Consult Note ---
Date of Encounter: 12/15/16 Time of Encounter: 19:35 - Data of Consult Patient: new to practice Consult date: 12/15/16 Requesting Physician: Beth Rojas MD Primary Care Provider: PCP NO - Consult Narrative Reason for consult: Suspected coagulopathy. History of present illness: Ms. Cook is a 61 year old woman seen in consultation regarding suspected coagulopathy. She is new to hematology. She is currently hospitalized for acute CHF exacerbation after presenting with progressive shortness of breath, lower bilateral lower extremity swelling an LVEF of 15-20% on echocardiogram. She is also been found with an acute DVT involving the right gastrocnemius vein and the left atrial thrombus. Cardiology swallowing. She was recently hospitalized for similar presentation with CHF extubation in October 2016 and at that time was found to have markedly elevated transaminases and coagulopathy with INR as high as 2.4, currently setting of uncontrolled atrial fibrillation. She was felt to be high risk for anticoagulation due to underlying coagulopathy at that time. The patient follow-up was recommended but they have been some compliance problems on the part of the patient. Current hospitalization with new lower extremity DVT and left atrial thrombus putting at risk for stroke, anticoagulation has been considered by cardiology and hematology has been consulted for further recommendation. Patient was seen and examined at bedside. Daughter (Joya) was present at bedside at time of evaluation. I reviewed her chart for details of ongoing care by [facility] which is much appreciated. She is comfortable and is not having any symptoms attributable to his CHF exhibition. Since her last hospitalization, liver dysfunction with transaminitis has gradually improved as has her coagulation panel including INR. She does have worsening hypoalbuminemia suggesting synthetic liver dysfunction. Otherwise, rest of her CBC is unremarkable and no indication of chronic liver disease. CHF is being managed supportively and she appears to be making incremental improvement with current measures. She has infectious precautions in place due to concern about head lice infestation. Rest of past medical, surgical, family, social history detailed below and verified with patient today. Review of systems: 12 point review of systems performed with patient and positive findings noted in history of present illness. All other systems are negative: Physical exam: Vital Signs Temp 97.1 F L 12/15/16 17:00 Pulse 95 12/15/16 17:00 Resp 18 12/15/16 17:00 BP 104/93 12/15/16 17:00 Pulse Ox 93 12/15/16 17:00 GENERAL: Alert and oriented, chronically ill appearing. Mental Status: Affect appropriate for circumstances HEENT: Sclerae anicteric. No mucositis or thrush. No other oral or pharyngeal lesions or erythema. Skin: No rashes or petechiae. No evidence of skin malignancy Lymph nodes: No cervical, supraclavicular, axillary, or inguinal adenopathy. Lungs: Clear to auscultation bilaterally. Clear to percussion bilaterally. Cardiovascular: Regular rate and rhythm. No gallops, murmurs, or rubs. Abdomen: Soft, nontender; No organomegaly or masses palpable. Extremities: Bilateral, symmetric lower extremity edema. No calf swelling or tenderness. No joint deformity. Neurologic: Alert, Global weakness. no focal weakness or sensory abnormalities. Results: Laboratory Last Values WBC 7.1 K/mcL (4.3-11.1) 12/14/16 03:19 RBC 4.37 M/mcL (3.82-4.97) 12/14/16 03:19 Hgb 11.5 g/dL (11.5-15.4) 12/14/16 03:19 Hct 36.1 % (35.3-44.9) 12/14/16 03:19 MCV 82.6 fL (83.0-100.0) L 12/14/16 03:19 MCH 26.3 pg (28.0-33.3) L 12/14/16 03:19 MCHC 31.9 g/dL (31.6-35.5) 12/14/16 03:19 RDW 17.6 % (11.5-14.5) H 12/14/16 03:19 Plt Count 145 K/mcL (140-400) 12/14/16 03:19 MPV 11.3 fL (9.4-12.4) 12/14/16 03:19 Immature Gran % 0.3 % (0-4) 12/14/16 03:19 Seg Neutrophils % 83.9 % 12/14/16 03:19 Lymphocytes % 8.2 % 12/14/16 03:19 Monocytes % 7.2 % 12/14/16 03:19 Eosinophils % 0.3 % 12/14/16 03:19 Basophils % 0.1 % 12/14/16 03:19 Neutrophils # 5.9 K/mcL (1.6-8.9) 12/14/16 03:19 Lymphocytes # 0.6 K/mcL (0.6-4.6) 12/14/16 03:19 Monocytes # 0.5 K/mcL (0.0-1.3) 12/14/16 03:19 Eosinophils # 0.0 K/mcL (0.0-0.6) 12/14/16 03:19 Basophils # 0.0 K/mcL (0.0-0.2) 12/14/16 03:19 Immature Plt Fraction 10.7 % (1.1-6.1) H 12/13/16 04:44 PT 19.4 Seconds (9.4-12.1) H 12/15/16 04:44 INR 1.8 12/15/16 04:44 APTT 69.2 Seconds (26.0-36.0) H 12/15/16 04:44 Heparin Anti-Xa, Unfract 0.25 IU/mL (0.30-0.70) L 12/12/16 12:10 VBG pH 7.34 pH Units (7.32-7.42) 12/11/16 23:47 VBG pCO2 48 mmHg (41-51) 12/11/16 23:47 VBG pO2 31 mmHg (25-40) 12/11/16 23:47 VBG HCO3 25.9 mEq/L (21-27) 12/11/16 23:47 Sodium 132 mEq/L (136-145) L 12/15/16 04:44 Potassium 3.1 mEq/L (3.5-4.5) L 12/15/16 04:44 Chloride 86 mEq/L (98-109) L 12/15/16 04:44 Carbon Dioxide 35 mEq/L (19-29) H 12/15/16 04:44 BUN 11 mg/dL (7-20) 12/15/16 04:44 Creatinine 0.69 mg/dL (0.57-1.11) 12/15/16 04:44 Est GFR ( Amer) > 60 (> 60) 12/15/16 04:44 Est GFR (Non-Af Amer) > 60 (> 60) 12/15/16 04:44 BUN/Creatinine Ratio 16 (6-26) 12/15/16 04:44 Glucose 92 mg/dL (70-99) 12/15/16 04:44 Calculated Osmolality 273 (280-300) L 12/15/16 04:44 Lactic Acid 1.2 mmol/L (0.5-2.2) 12/13/16 04:44 Calcium 10.3 mg/dL (8.6-10.8) 12/15/16 04:44 Magnesium 1.4 mg/dL (1.6-2.6) L 12/12/16 06:54 Total Bilirubin 3.6 mg/dL (0.2-1.2) H 12/14/16 10:22 Direct Bilirubin 2.6 mg/dL (0.0-0.5) H 12/14/16 10:22 Indirect Bilirubin 1.0 mg/dL (0.0-1.2) 12/14/16 10:22 AST 78 Units/L (5-34) H 12/14/16 10:22 ALT 103 Units/L (0-55) H 12/14/16 10:22 Alkaline Phosphatase 139 Units/L (38-126) H 12/14/16 10:22 Troponin I 0.11 ng/mL (0-0.03) H* 12/12/16 06:54 B-Natriuretic Peptide 3060 pg/mL (0-100) H 12/11/16 23:47 Serum Total Protein 5.9 g/dL (6.0-8.3) L 12/14/16 10:22 Albumin 2.7 g/dL (3.5-5.0) L 12/14/16 10:22 Globulin 3.2 g/dL (2.4-3.5) 12/14/16 10:22 Albumin/Globulin Ratio 0.8 (1.1-2.2) L 12/14/16 10:22 PTH Intact 321.7 pg/ml (8.5-72.5) H 12/12/16 06:54 Urine Color [place] (Yellow) A 12/12/16 01:49 Urine Clarity Turbid (Clear) A 12/12/16 01:49 Urine pH 5.0 pH Units (5.0-8.0) 12/12/16 01:49 Ur Specific [place] > 1.030 (1.010-1.025) H 12/12/16 01:49 Urine Protein 100 mg/dL (Neg-Trace) H 12/12/16 01:49 Urine Glucose (UA) Normal mg/dL (Normal) 12/12/16 01:49 Urine Ketones Negative mg/dL (Negative) 12/12/16 01:49 Urine Blood Moderate (Negative) H 12/12/16 01:49 Urine Nitrite Negative (Negative) 12/12/16 01:49 Urine Bilirubin Moderate (Negative) H 12/12/16 01:49 Urine Urobilinogen Normal mg/dL (Normal) 12/12/16 01:49 Ur Leukocyte Esterase Negative (Negative) 12/12/16 01:49 Urine Microscopic RBC 5-15 per hpf (0-3) H 12/12/16 01:49 Urine Microscopic WBC 5-15 per hpf (0-3) H 12/12/16 01:49 Ur Squamous Epith Cells Many per lpf (None-Few) H 12/12/16 01:49 Urine Bacteria Moderate per hpf (None-Few) H 12/12/16 01:49 Hyaline Casts Few per lpf (None-Few) 12/12/16 01:49 Urine Mucus Few (Few) 12/12/16 01:49 Urine Yeast Test Not Performed 12/12/16 01:49 Ur Culture Indicated? YES (NO) A 12/12/16 01:49 Vancomycin Trough 11.4 mcg/mL (10-20) 12/14/16 03:19 Hepatitis A IgM Ab Nonreactive (Nonreactive) 12/14/16 10:22 Hep Bs Antigen Nonreactive (Nonreactive) 12/14/16 10:22 Hep B Core IgM Ab Nonreactive (Nonreactive) 12/14/16 10:22 Hepatitis C Ab Screen Nonreactive (Nonreactive) 12/14/16 10:22 Specimen Rejected Clotted 12/12/16 10:41 Radiographic studies: I personally reviewed and interpreted patient's most recent imaging studies dated [default value]. I discussed the findings with the patient today. Abdomen/Pelvis CT 12/12/16 00:13 IMPRESSION: Persistent or recurrent right greater than left bibasilar pleural and parenchymal disease may represent manifestation of congestive heart failure and/or pneumonia. The heart is moderately enlarged and failure is suspected. Extensive body edema consistent with anasarca. There is trace free fluid in the peritoneal cavity. Thick bile/ sludge versus small gallstones. D/ / Gurjit Torres MD / Gurjit Torres MD Interpreting Provider: Gurjit Torres MD Chest CTA 12/12/16 00:18 IMPRESSION: No evidence of a pulmonary embolus. There is moderate cardiomegaly, right larger than left pleural effusions and multifocal airspace disease. Parenchymal disease likely represents combination of edema, pneumonia and compressive atelectasis. Congestive heart failure is suspected. There is a large filling defect in the superior aspect of the left atrium and left atrial appendage highly suspicious for clot and less likely tumor. Correlation with cardiac echo is recommended. D/ / Gurjit Torres MD / Gurjit Torres MD Interpreting Provider: Gurjit Torres MD Chest X-Ray 12/13/16 09:58 IMPRESSION: Cardiomegaly with bilateral pleural effusions and bibasilar opacities likely representing atelectasis and/or consolidation from pneumonia. D/ / Hong Lane MD / Hong Lane MD Interpreting Provider: Hong Lane MD Head CT 12/13/16 10:31 IMPRESSION: No acute intracranial abnormality. D/ / Edgard Guerrero MD / Edgard Guerrero MD Interpreting Provider: Edgard Guerrero MD Impression/recommendations: Suspected coagulopathy: Based on the elevated INR and abnormal coag panel without anticoagulation. I suspect this is related to recent acute liver failure which was attributed to congestive liver disease from CHF exacerbation. I do not believe her coagulation panel is indicative her clotting activity and should not be a contraindication to anticoagulation. She is currently on heparin for both her DVT and left atrial thrombus which is tolerating well with no unexpected side effects. No bleeding complications. Based on above, think we can safely switch her to oral anticoagulation. Coumadin is a consideration but INR goal can be challenging. We still recommend to keep her INR between 2 and 3 since previously noted coagulopathy appears to be improving with improvement in her CHF. NOACs would be reasonable alternative depending on insurance/coverage status. Regardless of anticoagulation choice she will need monitoring for bleeding complications and I will recommend that he be observed in hospital for at least 24 hours of anticoagulation prior to discharge. Left atrial thrombus: Related to uncontrolled atrial fibrillation and congestive heart failure. Followed by cardiology. Appreciate input. Right lower extremity DVT: Below-knee. I suspect this is related to venous stasis from her congestive heart failure. Anticoagulation for left atrial thrombus should also address issue of lower extremity DVT. If for any reason she is unable to have anticoagulation, retrievable IVC filter placement will be a consideration to reduce her risk for PE which she can E [place] at this time given her underlying severe CHF. We'll follow the patient peripherally with you. Please call with any interval questions. Thank you for your excellent ongoing care for allowing us to see her while in- house. This report was created using voice recognition software and may contain errors. It was signed but not edited to expedite communication. Corrections will be made in a separate addendum as needed. Past Med Surg Social Fam HX - Past Medical History Medical history: cardiomyopathy, CHF Psychiatric history: no psych history - Social History Smoking Status: Former smoker Smokeless Tobacco Status: No Alcohol use: none Drug use: none - Family History Mother History Unknown: Yes Medications and Allergies Aspirin 81 mg PO DAILY #30 tab.chew 11/02/16 [Rx] Carvedilol [Coreg] 6.25 mg PO BIDWM #30 tablet 11/02/16 [Rx] Cholecalciferol (D-3) [Vitamin D] 2,000 unit PO DAILY #15 tablet 11/02/16 [Rx] Cinacalcet [Sensipar] 60 mg PO DAILY #15 tablet 11/02/16 [Rx] Folic Acid 1 mg PO DAILY #15 tablet 11/02/16 [Rx] Furosemide [Lasix] 40 mg PO DAILY #7 vial 11/02/16 [Rx] Lisinopril [Zestril] 5 mg PO DAILY #15 tablet 11/02/16 [Rx] Potassium Chloride Elixir [Potassium Chloride] 20 meq PO DAILY #7 udc 11/02/16 [ Rx] Allergies No Known Allergies Allergy (Verified 12/11/16 23:18) Oncology - Exam - Constitutional Vitals: Temp Pulse Resp BP Pulse Ox 97.1 F L 95 18 104/93 93 12/15/16 17:00 12/15/16 17:00 12/15/16 17:00 12/15/16 17:00 12/15/16 17:00 Oncology - Results - Labs Labs: [facility] 12/15/16 04:44 Sodium 132 L Potassium 3.1 L Chloride 86 L Carbon Dioxide 35 H BUN 11 Creatinine 0.69 Glucose 92 Calcium 10.3 Consult Discharge Plan - Plan Instructions: Heart Failure (DC), Atrial Fibrillation (DC), Pacemaker (DC), Chronic Dysphagia (DC), Pneumonia (DC) Additional Instructions: follow up resident clinic on 12-22-16 @ 9:00 am Referrals: NO,PCP [Primary Care Provider] -
[2016-12-16 05:08] LABS: INR 2.7; Prothrombin Time 30.3 Seconds (9.4-12.1)
[2016-12-16] MEDS: levoFLOXacin 500 MG TABLET PO SCH (08:49)
[2016-12-16] MEDS: Lactobacillus 1 EACH CAP.SPRINK PO SCH ×2 (08:49→21:04)
[2016-12-16] MEDS: Sennosides 8.6 MG TABLET PO SCH ×2 (08:50→21:04)
[2016-12-16] MEDS: Furosemide 20 MG TABLET PO SCH ×2 (08:50→17:15)
[2016-12-16] MEDS: Metoprolol XL (24 HR) Succ 25 MG TAB.ER.24H PO SCH (08:50)
[2016-12-16 12:12] LABS: Potassium 3.3 mEq/L (3.5-4.5)
[2016-12-16] MEDS ORDERED: Potassium Chloride 40 MEQ, Lidocaine 1% 2 ML in D5% in Water 500 ML IVPB ONE (15:16)
--- NOTE | 2016-12-16 15:23 | Internal Med Progress Note ---
Date of Encounter: 12/16/16 Time of Encounter: 11:00 - Assessment and plan (1) Acute exacerbation of CHF (congestive heart failure) Current Visit: Yes Status: Acute Assessment and plan: Continue Lasix. On 20 mg twice daily of Lasix. Has had good negative fluid balance. Plan for outpatient follow-up with cardiology after discharge Qualifiers: Congestive heart failure type: systolic Qualified Code(s): I50.23 - Acute on chronic systolic (congestive) heart failure (2) Pneumonia Current Visit: Yes Status: Acute Assessment and plan: We will complete treatment with levofloxacin for 10 days. Qualifiers: Pneumonia type: due to unspecified organism Laterality: bilateral Lung location: unspecified part of lung Qualified Code(s): J18.9 - Pneumonia, unspecified organism (3) Left atrial thrombus Current Visit: Yes Status: Acute Assessment and plan: On anticoagulation with Coumadin. Patient had an episode of hemoptysis. We will monitor blood counts closely as patient is on Coumadin. Moderate risk for complications. (4) Hyperbilirubinemia Current Visit: Yes Status: Chronic Assessment and plan: Possibly from cholestasis related to congestive heart failure. We will arrange for follow-up with GI after discharge. (5) Atrial fibrillation with RVR Current Visit: Yes Status: Chronic (6) Hypercalcemia Current Visit: Yes Status: Resolved (7) Lactic acidosis Current Visit: Yes Status: Resolved (8) Thrombocytopenia Current Visit: Yes Status: Resolved (9) Scabies Current Visit: Yes Status: Acute (10) DVT (deep venous thrombosis) Current Visit: Yes Status: Acute Assessment and plan: On Coumadin. INR is therapeutic. Will stop heparin. Qualifiers: DVT location: lower extremity Affected thrombotic vein of extremity: other lower extremity vein Chronicity: acute Laterality: right Qualified Code(s) : I82.491 - Acute embolism and thrombosis of other specified deep vein of right lower extremity (11) Hypokalemia Current Visit: Yes Status: Acute Assessment and plan: Continue repletion. Patient not tolerating oral potassium tablets. Will treat with intravenous potassium (12) Dysphagia Current Visit: Yes Status: Acute Assessment and plan: Patient reports difficulty swallowing during the esophageal phase. Speech therapy evaluated patient again today and patient has have good pharyngeal swallow. Continue soft diet for now. We will arrange for follow-up with GI for further evaluation. Qualifiers: Dysphagia type: esophageal phase Qualified Code(s): R13.14 - Dysphagia, pharyngoesophageal phase - Subjective Interval history: Patient is currently sitting up in chair. Appears comfortable. Denies any nausea or vomiting. No chest pain. Reports of trouble swallowing food and has had episodes of emesis after taking her medications yesterday. Nursing staff also reports that patient apparently had 1 episode of hemoptysis. - Constitutional Vitals: Temp Pulse Resp BP Pulse Ox 97.6 F 101 16 118/72 93 12/16/16 11:21 12/16/16 11:21 12/16/16 11:21 12/16/16 11:21 12/16/16 06:51 General appearance: Present: cooperative, A&O X 2, mild distress, pleasant, no acute distress, answers questions appropriately - Respiratory Respiratory exam: Present: CTAB. Absent: accessory muscle use, rales, rhonchi, wheezes - Cardiovascular Cardiovascular exam: Present: RRR, +S1, +S2. Absent: diastolic murmur, gallop, rubs, systolic murmur - GI/Abdominal GI/Abdominal exam: Present: normal bowel sounds, soft, no peritoneal signs. Absent: distended, tenderness - Extremities Exam Extremities exam: Present: pedal edema, warm, radial pulses palpable and symetrical. Absent: calf tenderness, cyanotic - Neurological Exam Neurological exam: Present: alert, oriented X3, no focal deficits. Absent: facial droop, speech deficit - Skin Skin exam: Present: dry, intact Internal Medicine: Result - Labs CBC & Chem 7: 12/14/16 03:19 12/16/16 11:11 Labs: BMP 12/16/16 11:11 Potassium 3.3 L - ABG Interpretation ABG results: PT/INR, D-dimer PT 30.3 Seconds (9.4-12.1) H D 12/16/16 03:31 - VTE Reasons for not Prescribing Prophylaxis: Not indicated-Anticoagulated or INR therapeutic Documentation of Mechanical Device: Intermittent pneumatic compression device Consult Discharge Plan - Plan Instructions: Heart Failure (DC), Atrial Fibrillation (DC), Pacemaker (DC), Chronic Dysphagia (DC), Pneumonia (DC) Additional Instructions: follow up resident clinic on 12-22-16 @ 9:00 am Referrals: NO,PCP [Primary Care Provider] -
[2016-12-16 16:23] LABS: Magnesium 1.2 mg/dL (1.6-2.6)
[2016-12-16] MEDS ORDERED: Magnesium Sulfate 4 GM in D5% in Water 100 ML IVPB ONE (20:41)
[2016-12-17 03:37] LABS: Basophils % 0.1 %; Eosinophils % 0.4 %; Hematocrit 37.9 % (35.3-44.9); Hemoglobin 12.1 g/dL (11.5-15.4); Immature Granulocytes % 0.4 % (0-4); Lymphocytes # 1.1 K/mcL (0.6-4.6); Lymphocytes % 15.4 %; Mean Corpuscular HGB Conc 31.9 g/dL (31.6-35.5); Mean Corpuscular Hemoglobin 25.9 pg (28.0-33.3); Monocytes # 0.9 K/mcL (0.0-1.3); Monocytes % 13.1 %; Platelet Count 184 K/mcL (140-400); Red Blood Count 4.68 M/mcL (3.82-4.97); Red Cell Distribution Width 18.2 % (11.5-14.5); Segmented Neutrophils % 70.6 %
[2016-12-17 03:43] LABS: Prothrombin Time 33.6 Seconds (9.4-12.1)
[2016-12-17 03:46] LABS: Activated Partial Thrombo Time 38.3 Seconds (26.0-36.0)
[2016-12-17 03:48] LABS: BUN/Creatinine Ratio 15 (6-26); Blood Urea Nitrogen 10 mg/dL (7-20); Calcium 11.4 mg/dL (8.6-10.8); Carbon Dioxide 37 mEq/L (19-29); Chloride 86 mEq/L (98-109); Glucose 104 mg/dL (70-99); Magnesium 1.4 mg/dL (1.6-2.6); Osmolality,Calculated 271 (280-300); Potassium 3.7 mEq/L (3.5-4.5); Sodium 131 mEq/L (136-145); eGFR For African Americans > 60 (> 60); eGFR For Non-African Americans > 60 (> 60)
[2016-12-17] MEDS: Lactobacillus 1 EACH CAP.SPRINK PO SCH (10:11)
[2016-12-17] MEDS: levoFLOXacin 500 MG TABLET PO SCH (10:11)
[2016-12-17] MEDS: Metoprolol XL (24 HR) Succ 25 MG TAB.ER.24H PO SCH (10:11)
[2016-12-17] MEDS: Furosemide 20 MG TABLET PO SCH (10:12)
[2016-12-17] MEDS: Sennosides 8.6 MG TABLET PO SCH (10:12)
[2016-12-17 12:12] VITALS: BP 110/96
--- NOTE | 2016-12-17 14:32 | Discharge Summary ---
Date of Encounter: 12/17/16 Time of Encounter: 14:30 - Discharge Diagnosis (1) Acute exacerbation of CHF (congestive heart failure) Priority: Primary Status: Acute Qualifiers: Congestive heart failure type: systolic Qualified Code(s): I50.23 - Acute on chronic systolic (congestive) heart failure (2) Pneumonia Priority: Secondary Status: Acute Qualifiers: Pneumonia type: due to unspecified organism Laterality: bilateral Lung location: unspecified part of lung Qualified Code(s): J18.9 - Pneumonia, unspecified organism (3) Left atrial thrombus Priority: Secondary Status: Acute (4) Hyperbilirubinemia Priority: Secondary Status: Chronic (5) Atrial fibrillation with RVR Priority: Secondary Status: Chronic (6) Hypercalcemia Priority: Secondary Status: Resolved (7) Lactic acidosis Priority: Secondary Status: Resolved (8) Thrombocytopenia Priority: Secondary Status: Resolved (9) Scabies Priority: Secondary Status: Acute (10) DVT (deep venous thrombosis) Priority: Secondary Status: Acute Qualifiers: DVT location: lower extremity Affected thrombotic vein of extremity: other lower extremity vein Chronicity: acute Laterality: right Qualified Code(s) : I82.491 - Acute embolism and thrombosis of other specified deep vein of right lower extremity (11) Hypokalemia Priority: Secondary Status: Acute (12) Dysphagia Priority: Secondary Status: Suspected Qualifiers: Dysphagia type: esophageal phase Qualified Code(s): R13.14 - Dysphagia, pharyngoesophageal phase - Discharge Medications Prescriptions: Aspirin Enteric Coated [Aspirin EC] 81 mg PO DAILY #30 tablet Cholecalciferol (D-3) [Vitamin D] 2,000 unit PO DAILY #15 tablet Cinacalcet [Sensipar] 60 mg PO DAILY #30 tablet Folic Acid 1 mg PO DAILY #30 tablet Furosemide [Lasix] 20 mg PO BIDDIURETIC #60 tablet Furosemide [Lasix] 20 mg PO BID #5 tablet levoFLOXacin [Levaquin] 500 mg PO DAILY #7 tablet levoFLOXacin [Levaquin] 750 mg PO DAILY #2 tablet Metoprolol XL (24 HR) Succ [Toprol Xl] 12.5 mg PO DAILY #30 tab.er.24h Potassium Chloride Elixir [Potassium Chloride] 20 meq PO DAILY #7 udc Warfarin [Coumadin] 1 mg PO 1800 #7 tablet Home Medications: Aspirin Enteric Coated [Aspirin EC] 81 mg PO DAILY #30 tablet. 12/17/16 [Rx] Cholecalciferol (D-3) [Vitamin D] 2,000 unit PO DAILY #15 tablet 12/17/16 [Rx] Cinacalcet [Sensipar] 60 mg PO DAILY #30 tablet 12/17/16 [Rx] Folic Acid 1 mg PO DAILY #30 tablet 12/17/16 [Rx] Furosemide [Lasix] 20 mg PO BID #5 tablet 12/17/16 [Rx] Furosemide [Lasix] 20 mg PO BIDDIURETIC #60 tablet 12/17/16 [Rx] Metoprolol XL (24 HR) Succ [Toprol Xl] 12.5 mg PO DAILY #30 tab.er.24h 12/17/16 [Rx] Potassium Chloride Elixir [Potassium Chloride] 20 meq PO DAILY #7 udc 12/17/16 [ Rx] Warfarin [Coumadin] 1 mg PO 1800 #7 tablet 12/17/16 [Rx] levoFLOXacin [Levaquin] 500 mg PO DAILY #7 tablet 12/17/16 [Rx] levoFLOXacin [Levaquin] 750 mg PO DAILY #2 tablet 12/17/16 [Rx] Allergies/Adverse Reactions: Allergies No Known Allergies Allergy (Verified 12/11/16 23:18) - Notes to Outpatient Provider Patient will need follow up with ENT for parathyroid adenoma. Patient will also need follow-up with GI for possible esophageal dysphagia. Date of admission: 12/12/16 06:40 Primary care physician: PCP NO Consults: 12/12/16 06:46 Consult to Speech Therapy [CONS] Routine Comment: Evaluate, develop and implement POC Reason for Consult: Dysphagia Call Completed: No 12/12/16 10:21 Consult to Public Employment Mediator [CONS] Routine Reason for SW Consult: discharge needs 12/13/16 08:02 Consult to Cardiology [CONS] Routine Comment: Consulting Provider: Card[facility] [place] Reason for Consult: Left atrial thrombus Time Notified: 08:02 Call Completed: Yes 12/14/16 13:21 Consult to Physical Therapy [CONS] Routine Comment: Evaluate, develop and implement POC Reason for Consult: Required for possible rehab placement 12/14/16 13:22 Consult to Occupational Therapy [CONS] Routine Comment: Evaluate, develop and implement POC Reason for Consult: For possible rehab placement 12/15/16 16:17 Consult to Oncology Hematology [CONS] Routine Consulting Provider: Emmie Watson Reason for Consult: INR goal. Pt with INR 2.1 not on anticoagulation, now requiring anticoagulation for afib, LA thrombus and DVT. Emmie Watson LAUNDRY TECHNICIAN notified . Call Completed: Yes 12/16/16 13:48 Consult to Speech Therapy [CONS] Routine Comment: Evaluate, develop and implement POC Reason for Consult: swallow eval Call Completed: Yes Discharging clinician: Beth Rojas Anticipated date of discharge: 12/17/16 - Patient Status Disposition: Home Health Service Condition: Fair Functional capacity at discharge: uses cane/walker Overall status at discharge: patient is progressing back to baseline - Discharge Instructions Instructions: Metoprolol (By mouth), Furosemide (By mouth), Potassium Chloride (By mouth), Warfarin (By mouth), Aspirin (By mouth), Folic Acid (By mouth), Levofloxacin (By mouth), Cinacalcet (By mouth), Vitamin D (By mouth), Heart Failure (DC), Atrial Fibrillation (DC), Pacemaker (DC), Chronic Dysphagia (DC), Pneumonia (DC) Follow Up With: Randy Romano LAUNDRY TECHNICIAN [Advanced Practice Nurse] - 12/29/16 8:00 am NO,PCP [Primary Care Provider] - Additional Instructions: follow up resident clinic on 12-22-16 @ 9:00 am coumadin clinic Monday12-20-16 at 3:00 pm - Diet and Activity Activity: as per physical therapy, increase activity as tolerated Diet: low fat, low cholesterol, low salt diet, other (Fluid restriction to 1.5 L per day) Hospital course: Ms. Cook is a 61 year old female patient with a history of nonischemic cardiomyopathy with EF of 10-15%, primary hyperparathyroidism with parathyroid adenoma, chronic thyroiditis, atrial fibrillation who had recently been hospitalized for atrial fibrillation with RVR and pneumonia and was discharged in October presented to the hospital with complaints of shortness of breath. She was evaluated with a CT scan initially which showed large filling defect in the superior aspect of the left atrium. An echocardiogram done to evaluate this further assessed at the presence of a left atrial thrombus. Patient was treated for this with IV heparin. A venous Doppler of her lower extremities also showed a right gastrocnemius vein DVT. Patient was placed on Coumadin to continue anticoagulation. She had lactic acidosis and elevated liver enzymes on presentation along with hypercalcemia. She has been placed on Sensipar per nephrology recommendations with resolution of her hypercalcemia. Her hypercalcemia is due to parathyroid adenoma. She is supposed to follow up with ENT for further management of this but has not been able to go through with her follow-up appointments. She has been stressed the importance of making sure she follows up with all the appointments that have been provided to her and she understands the importance of doing so. She will follow up with Coumadin clinic for further management of her coagulation. She was evaluated by oncology hematology. They believe her hypercoagulable state could be related to her hepatitis which she was diagnosed with during her last hospitalization in October. At that time her liver enzymes had been severely elevated. Hepatitis viral panel was negative. Ultrasound of the abdomen does not show any signs of cirrhosis. Most likely her hepatitis was related to cholestasis from congestive heart failure and cardiomyopathy. Her liver enzymes have since improved but she does remain hyperbilirubinemic. Given her problems with synthetic hepatic function, she is at high risk for bleeding due to use of Coumadin if she does not follow up closely with the Coumadin clinic. This has been explained to the patient and her family at multiple times during her hospitalization and they have expressed understanding. She was evaluated by physical therapy and recommended placement to skilled rehabilitation. However patient does not wish to go to skilled rehabilitation and would want to go to once to go home with home health. This will be arranged for the patient. Patient also was diagnosed with scabies on presentation and was treated with topical permethrin with improvement in her rash. If she has a recurrence of the rash, she can receive another treatment in 7 days. She was also diagnosed with sepsis and pneumonia and was treated with broad- spectrum antibiotics which would be escalated as cultures have been negative. She will complete her course of treatment with levofloxacin as outpatient. She was evaluated for home oxygen therapy and was found to be saturating greater than 90% on room air. She does not require home oxygen supplementation. Patient has been having episodes of nausea and vomiting. There was concern for dysphagia but she does not exhibit signs of oropharyngeal dysphagia. She was evaluated by speech therapy. At this time, she is able to swallow well and keep her food down. If this problem recurs, she can follow up with GI as outpatient for further evaluation. She was also hypokalemic and was treated with potassium supplements. - Time Spent with Patient Total time spent providing and/or coordinating discharge services: Greater than 30 minutes (45 min) - Constitutional Vitals: Temp Pulse Resp BP Pulse Ox 97.7 F 100 18 110/96 96 12/17/16 12:11 12/17/16 12:11 12/17/16 12:11 12/17/16 12:11 12/17/16 12:11 General appearance: Present: cooperative, A&O X 2, mild distress, pleasant, no acute distress, answers questions appropriately - Respiratory Respiratory exam: Present: CTAB. Absent: accessory muscle use, rales, rhonchi, wheezes - Cardiovascular Cardiovascular exam: Present: RRR, +S1, +S2. Absent: diastolic murmur, gallop, rubs, systolic murmur - GI/Abdominal GI/Abdominal exam: Present: normal bowel sounds, soft, no peritoneal signs. Absent: distended, tenderness - Extremities Exam Extremities exam: Present: pedal edema, warm, radial pulses palpable and symetrical. Absent: calf tenderness, cyanotic - VTE Reasons for not Prescribing Prophylaxis: Not indicated-Anticoagulated or INR therapeutic Documentation of Mechanical Device: Intermittent pneumatic compression device
--- NOTE | 2016-12-17 14:47 | Physician Discharge Referral ---
Home Health/Hosp Referral Info Transfer to: Home Health Provider in Charge Post Discharge: PCP - Diagnosis (1) Acute exacerbation of CHF (congestive heart failure) Priority: Primary Status: Acute (2) Pneumonia Priority: Secondary Status: Acute (3) Left atrial thrombus Priority: Secondary Status: Acute (4) Hyperbilirubinemia Priority: Secondary Status: Chronic (5) Atrial fibrillation with RVR Priority: Secondary Status: Chronic (6) Hypercalcemia Priority: Secondary Status: Resolved (7) Lactic acidosis Priority: Secondary Status: Resolved (8) Thrombocytopenia Priority: Secondary Status: Resolved (9) Scabies Priority: Secondary Status: Acute (10) DVT (deep venous thrombosis) Priority: Secondary Status: Acute (11) Hypokalemia Priority: Secondary Status: Acute (12) Dysphagia Priority: Secondary Status: Suspected - Respiratory Orders Smoking Cessation: Smoking cessation has been advised. For more information, call the [place] Tobacco Quit Line at 8-609-UXWO-NOW. - Diet/Nutrition Diet/Nutrition Orders: Cardiac Diet/Nutrition: List: Fluid restriction to 1.5 L per day - Activity Activity Orders: Walker - Services Needed Following services are medically necessary services: Nursing, Physical Therapy, Occupational Therapy - Transfer Medications Prescriptions: Aspirin Enteric Coated [Aspirin EC] 81 mg PO DAILY #30 tablet. Cholecalciferol (D-3) [Vitamin D] 2,000 unit PO DAILY #15 tablet Cinacalcet [Sensipar] 60 mg PO DAILY #30 tablet Folic Acid 1 mg PO DAILY #30 tablet Furosemide [Lasix] 20 mg PO BIDDIURETIC #60 tablet Furosemide [Lasix] 20 mg PO BID #5 tablet levoFLOXacin [Levaquin] 500 mg PO DAILY #7 tablet levoFLOXacin [Levaquin] 750 mg PO DAILY #2 tablet Metoprolol XL (24 HR) Succ [Toprol Xl] 12.5 mg PO DAILY #30 tab.er.24h Potassium Chloride Elixir [Potassium Chloride] 20 meq PO DAILY #7 udc Warfarin [Coumadin] 1 mg PO 1800 #7 tablet Home Medications: Aspirin Enteric Coated [Aspirin EC] 81 mg PO DAILY #30 tablet. 12/17/16 [Rx] Cholecalciferol (D-3) [Vitamin D] 2,000 unit PO DAILY #15 tablet 12/17/16 [Rx] Cinacalcet [Sensipar] 60 mg PO DAILY #30 tablet 12/17/16 [Rx] Folic Acid 1 mg PO DAILY #30 tablet 12/17/16 [Rx] Furosemide [Lasix] 20 mg PO BID #5 tablet 12/17/16 [Rx] Furosemide [Lasix] 20 mg PO BIDDIURETIC #60 tablet 12/17/16 [Rx] Metoprolol XL (24 HR) Succ [Toprol Xl] 12.5 mg PO DAILY #30 tab.er.24h 12/17/16 [Rx] Potassium Chloride Elixir [Potassium Chloride] 20 meq PO DAILY #7 udc 12/17/16 [ Rx] Warfarin [Coumadin] 1 mg PO 1800 #7 tablet 12/17/16 [Rx] levoFLOXacin [Levaquin] 500 mg PO DAILY #7 tablet 12/17/16 [Rx] levoFLOXacin [Levaquin] 750 mg PO DAILY #2 tablet 12/17/16 [Rx] Allergies/Adverse Reactions: Allergies No Known Allergies Allergy (Verified 12/11/16 23:18) Certification: Further, I certify that my clinical findings support that this patient is homebound (i.e. absences from home require considerable and taxing effort and are for medical reasons or hinduism services or infrequently or short duration when for other reasons) because: Homebound Reason: Patient requires assistance of a person or device to safely leave home Attestation: My signature below is to certify that this patient is under my care and that I, or nurse practitioner, or a physician's assistant housekeeping manager working with me, has a face-to -face encounter with this patient.
[2016-12-17] MEDS ORDERED: *HR* Warfarin 1 MG TABLET PO ONE (18:00)
== END 2016-12-17 16:11 | disposition home health service (06) | DRG 194 ==
LOC: EMEROO 23:15 → SUATTDRO 12-12 06:40 → 2NENU 12-12 06:40
PROVIDERS: ADMIT Internal Medicine; ATTEND Internal Medicine

== ENCOUNTER 2017-01-05 14:33 | Inpatient (IN) ==
[2017-01-05 15:50] LABS: Basophils % 0.4 %; Eosinophils % 0.8 %; Hematocrit 36.4 % (35.3-44.9); Hemoglobin 11.4 g/dL (11.5-15.4); Immature Granulocytes % 0.2 % (0-4); Lymphocytes # 1.6 K/mcL (0.6-4.6); Lymphocytes % 29.8 %; Mean Corpuscular HGB Conc 31.3 g/dL (31.6-35.5); Mean Corpuscular Volume 86.3 fL (83.0-100.0); Mean Platelet Volume 10.2 fL (9.4-12.4); Monocytes # 0.5 K/mcL (0.0-1.3); Monocytes % 10.1 %; Neutrophils # 3.1 K/mcL (1.6-8.9); Platelet Count 245 K/mcL (140-400); Red Blood Count 4.22 M/mcL (3.82-4.97); Red Cell Distribution Width 21.1 % (11.5-14.5); Segmented Neutrophils % 58.7 %
--- NOTE | 2017-01-05 15:53 | Emergency Department Note ---
Disposition Clinical Impression: Supratherapeutic INR, Left atrial thrombus, Hypokalemia Disposition: Admitted As Inpatient Condition: Good Referrals: NO,PCP [Non-Partnered Physician] - Forms: ED Satisfaction Letter Time of Disposition: 16:30 General Adult HPI - General Chief complaint: ED Recheck/Abnormal Lab/Rx Stated complaint: INR is Low Time Seen by Provider: 01/05/17 15:28 Source: patient Nursing Notes Reviewed: Yes Vital Signs Reviewed: Yes - History of Present Illness HPI Narrative: This is a pleasant 61-year-old female with a past medical history of CHF, atrial fibrillation, DVT, and a recent diagnosis of a left atrial thrombus. She was referred to the emergency department by [facility] because of concerns with compliance with her anticoagulation medications as well as her oral potassium supplements. She has previously been offered extended care placement but has declined the offer. The patient has no complaints at this time. When asked why she is here she states "I have no idea". When asked if she takes medication she states "I do not know". Pain Scale: 0 - Related Data Previous Rx's Medication Instructions Recorded Aspirin Enteric Coated [Aspirin EC] 81 mg PO DAILY #30 tablet. 12/17/16 Cholecalciferol (D-3) [Vitamin D] 2,000 unit PO DAILY #15 tablet 12/17/16 Cinacalcet [Sensipar] 60 mg PO DAILY #30 tablet 12/17/16 Folic Acid 1 mg PO DAILY #30 tablet 12/17/16 Furosemide [Lasix] 20 mg PO BID #5 tablet 12/17/16 Furosemide [Lasix] 20 mg PO BIDDIURETIC #60 tablet 12/17/16 Metoprolol XL (24 HR) Succ [Toprol 12.5 mg PO DAILY #30 tab.er.24h 12/17/16 Xl] Potassium Chloride Elixir 20 meq PO DAILY #7 udc 12/17/16 [Potassium Chloride] Warfarin [Coumadin] 1 mg PO 1800 #7 tablet 12/17/16 levoFLOXacin [Levaquin] 500 mg PO DAILY #7 tablet 12/17/16 levoFLOXacin [Levaquin] 750 mg PO DAILY #2 tablet 12/17/16 Allergies Allergy/AdvReac Type Severity Reaction Status Date / Time No Known Allergies Allergy Verified 01/05/17 14:45 Constitutional: Denies: fever, chills, weakness Eyes: Denies: eye pain Cardiovascular: Denies: chest pain, palpitations, dyspnea on exertion Respiratory: Denies: cough, dyspnea, wheezes, hemoptysis Gastrointestinal: Denies: abdominal pain, nausea, vomiting, diarrhea, constipation Genitourinary: Denies: urgency, dysuria, frequency Musculoskeletal: Denies: neck pain Neurological: Denies: headache, weakness, numbness Psychiatric: Denies: anxiety, depression Endocrine: Denies: fatigue, heat or cold intolerance Past Medical History - Past Medical History Medical history: Reports: cardiomyopathy, CHF, DVT Psychiatric history: Reports: no psych history KILN FIRER history: Reports: bilateral tubal ligation - Social History Smoking Status: Former smoker Smokeless Tobacco Status: No Alcohol use: Reports: none Drug use: Reports: none Physical Exam This is a thin 61-year-old female in no apparent distress. Through conversation, it appears that she has some issues with understanding and expressing her thoughts. - General General appearance: alert, in no apparent distress - Head Head exam: atraumatic, normocephalic - Eye Eye exam: Present: EOMI. Absent: scleral icterus, conjunctival injection - ENT ENT exam: mucous membranes moist - Neck Neck exam: Present: trachea midline. Absent: tenderness, meningismus - Chest Chest inspection: Present: symmetric chest wall rise - Respiratory Respiratory exam: Present: normal lung sounds bilaterally. Absent: respiratory distress - Cardiovascular Cardiovascular exam: Present: irregular rhythm - Abdominal Exam Abdominal exam: Present: soft, Non-Tender. Absent: distention, guarding, rebound, rigidity - Expanded Lower Extremity Exam Lower leg exam: Present: swelling (2+ pitting edema bilaterally) - Skin Skin exam: Present: warm, dry, intact Course Course Narrative: This is a 61-year-old female who presents to the emergency department with a possible issue of compliance with her anticoagulation medicines as well as her potassium. There is concern by the cardiology office due to a recent INR of 1.5 which is not therapeutic for her recent ventricular thrombus of the heart. Cardiology believes that this patient should be admitted for IV heparin. At this time this patient has no complaints. A CBC, coags, and BMP have been ordered on this patient. - Reevaluation(s) Reevaluation #1: This patient's INR here was 1.4. This is still subtherapeutic on Coumadin. Her potassium was 3.1. At this point, I agree with the brush holder inspector office and think that it is in this patient's best interest to be admitted overnight and started on an IV heparin drip to help prevent the left atrial thrombus from progressing. I consult the hospitalists, and she is agreeable with the plan. This patient is currently hemodynamically stable and has no complaints. Time: 16:29 Vital Signs Temperature 97.8 F 01/05/17 14:42 Pulse Rate 109 01/05/17 14:42 Respiratory Rate 16 01/05/17 14:42 Blood Pressure 105/68 01/05/17 14:42 O2 Sat by Pulse Oximetry 97 01/05/17 14:42 Temperature 97.8 F 01/05/17 14:42 Pulse Rate 109 01/05/17 14:42 Respiratory Rate 16 01/05/17 14:42 Blood Pressure 105/68 01/05/17 14:42 O2 Sat by Pulse Oximetry 97 01/05/17 14:42 Oxygen Delivery Oxygen Delivery Room Air Medical Decision Making - MDM Narrative Medical decision making narrative: I examined this patient and my medical decision-making was reviewed with the Resident Physician. I agree with the documented findings, disposition and treatment plan as described except to the extent set forth below. Evaluated this patient with Dr. Gleason and myself, grade his evaluation and management plan, supervise care the patient's stay. Patient says she was not sure why she was here turns out she has an INR 1.5 she has a cardiac thrombus that they are treating and she apparently is noncompliant with meds. She also thought her potassium was low we talked to cardiology since they did not call her here to tell us what was going on. Confirm the history repeated her labs they wanted her placed on heparin to get her more therapeutic and then they will discuss social service options and outpatient management. Patient's agreement with this plan spoke with hospitalist for admission. - Medical Records Medical records reviewed: Yes I reviewed the patient's medical records. - Lab Data Lab results reviewed: Yes I reviewed the patient's lab results. Result diagrams: 01/05/17 15:40 01/05/17 15:40 Lab Results 01/05/17 01/05/17 01/05/17 Range/Units 15:40 15:40 15:40 WBC 5.3 (4.3-11.1) K/mcL RBC 4.22 (3.82-4.97) M/mcL Hgb 11.4 L (11.5-15.4) g/dL Hct 36.4 (35.3-44.9) % MCV 86.3 (83.0-100.0) fL MCH 27.0 L (28.0-33.3) pg MCHC 31.3 L (31.6-35.5) g/dL RDW 21.1 H (11.5-14.5) % Plt Count 245 (140-400) K/mcL MPV 10.2 (9.4-12.4) fL Immature Gran % 0.2 (0-4) % Seg Neutrophils % 58.7 % Lymphocytes % 29.8 % Monocytes % 10.1 % Eosinophils % 0.8 % Basophils % 0.4 % Neutrophils # 3.1 (1.6-8.9) K/mcL Lymphocytes # 1.6 (0.6-4.6) K/mcL Monocytes # 0.5 (0.0-1.3) K/mcL Eosinophils # 0.0 (0.0-0.6) K/mcL Basophils # 0.0 (0.0-0.2) K/mcL PT 15.5 H (9.4-12.1) Seconds INR 1.4 APTT 27.8 (26.0-36.0) Seconds Sodium 141 (136-145) mEq/L Potassium 3.1 L (3.5-4.5) mEq/L Chloride 95 L (98-109) mEq/L Carbon Dioxide 35 H (19-29) mEq/L BUN 8 (7-20) mg/dL Creatinine 0.71 (0.57-1.11) mg/dL Est GFR ( Amer) > 60 (> 60) Est GFR (Non-Af Amer) > 60 (> 60) BUN/Creatinine Ratio 11 (6-26) Glucose 125 H (70-99) mg/dL Calculated Osmolality 292 (280-300) Calcium 9.0 (8.6-10.8) mg/dL
[2017-01-05 15:54] LABS: INR 1.4; Prothrombin Time 15.5 Seconds (9.4-12.1)
[2017-01-05 15:57] LABS: Activated Partial Thrombo Time 27.8 Seconds (26.0-36.0)
[2017-01-05 16:02] LABS: BUN/Creatinine Ratio 11 (6-26); Blood Urea Nitrogen 8 mg/dL (7-20); Carbon Dioxide 35 mEq/L (19-29); Chloride 95 mEq/L (98-109); Glucose 125 mg/dL (70-99); Osmolality,Calculated 292 (280-300); Potassium 3.1 mEq/L (3.5-4.5); Sodium 141 mEq/L (136-145); eGFR For African Americans > 60 (> 60); eGFR For Non-African Americans > 60 (> 60)
[2017-01-05] MEDS ORDERED: Heparin 25,000 UNIT/500 ML D5W 25,000 UNIT/500 ML MLS IVC SCH ×2 (16:30→23:30)
[2017-01-05] MEDS ORDERED: Naloxone 0.4 MG/ML INJ IVP PRN (17:46)
[2017-01-05] MEDS ORDERED: Ondansetron 4 MG/2 ML VIAL IVP PRN (17:46)
[2017-01-05] MEDS ORDERED: *HR* Warfarin 1 MG TABLET PO SCH (18:00)
--- NOTE | 2017-01-05 18:00 | Event Note ---
Date of Encounter: 01/05/17 Time of Encounter: 17:53 1. Right atrial thrombus and right lower extremity DVT, nontherapeutic INR Cardiology was called from the ER, apparently heparin drip was recommended Consider other anticoagulation options in the morning due to noncompliance with therapy 2. History of systolic CHF, possible acute mild exacerbation Continue Lasix IV, strict I's and O's, daily weight. Decrease fluid intake 3. COPD not oxygen dependent, no exacerbation 4. Hypokalemia replete as needed Omeprazole for GI prophylaxis and heparin drip for DVT prophylaxis. The patient will be admitted for observation. Full code. Time spent on this admission 40 minutes. Note to be completed by [place]
--- NOTE | 2017-01-05 18:10 | Internal Med History&Physical ---
<Bess Bay - Last Filed: 01/05/17 18:45> Date of Encounter: 01/05/17 Time of Encounter: 19:00 Assessment and Plan (1) Subtherapeutic international normalized ratio (INR) Current visit: Yes Status: Acute Patient has a history of right gastrocnemius vein DVT as well as a left atrial thrombus and atrial fibrillation She has been placed on Coumadin for anticoagulation however, she has not been compliant with her regime as well as following up with anticoagulation clinic. INR was 1.4. Patient was initiated on heparin drip and will be bridged to Coumadin per cardiology request. Will continue to monitor INR goal is 2-3 pharmacy to dose Coumadin 2 to consult pediatric social worker-concerned about compliance and transportation to and from Coumadin clinic . (2) Hypokalemia Current visit: Yes Status: Acute 1 patient has not been compliant with her potassium replacement-does not like the taste of the liquid. She is on Lasix. We will continue with oral placement in place on pills. Continue to monitor potassium level we will check magnesium as well 2 continuous cardiac monitoring (3) Left atrial thrombus Current visit: Yes Status: Acute 1 continue with heparin bridge to Coumadin-have patient follow up with Coumadin clinic monitor INR with goal of 2-3 2 have patient follow-up with cardiology as outpatient - consult as needed (4) Atrial fibrillation Current visit: No Status: Chronic 1patient has history of chronic atrial fibrillation. We will continue with metoprolol for rate control and Coumadin for anticoagulation Qualifiers: Atrial fibrillation type: persistent Qualified Code(s): I48.1 - Persistent atrial fibrillation (5) CHF (congestive heart failure) Current visit: Yes Status: Acute 1 patient has a history of systolic heart failure with EF of 10-15%. She admits that she has had some difficulty being compliant with her diet as well as fluid restriction. Her lower extremities are swollen 2+ pitting edema presently lung sounds are clear. We will continue with Lasix 20 mg twice a day however given IV. 2 monitor intake output and daily weight 3 1500 fluid restriction 4 and low sodium diet Qualifiers: Congestive heart failure type: systolic Congestive heart failure chronicity : unspecified congestive heart failure chronicity Qualified Code(s): I50.20 - Unspecified systolic (congestive) heart failure (6) Hyperparathyroidism Current visit: No Status: Acute 1 patient has a history of hypercalcemia due to parathyroid adenoma. She is postop with ENT for further management but has not been compliant. We will check ionized calcium 2 will continue with the Sensipar (7) DVT prophylaxis Current visit: No Status: Acute patient is on heparin drip. Internal Medicine - H&P: HPI Chief complaint: low INR Admitted From: Emergency Dept Plans for Post Hospital Care: Home History of present illness: Ms. Cook is a 61 year old female past medical history of nonischemic cardiomyopathy with EF of 10-15% primary hyperparathyroidism with parathyroid adenoma chronic thyroiditis atrial fibrillation right DVT left atrial thrombus. Patient has been recently hospitalized at this hospital in October of this year with complaints of shortness of breath diagnosed with pneumonia and last admission was 12/12/2016 during admission she was diagnosed with a left atrial thrombus as well as a right gastrocnemius vein DVT, was treated with IV heparin -and then placed on Coumadin for continuous anticoagulation. She had lactic acidosis and elevated liver enzymes on presentation along with hypercalcemia. She has been placed on Sensipar per nephrology recommendations which resolved her hypercalcemia. Her hypercalcemia was due to a parathyroid adenoma which she was best to follow-up with ENT for further management however she did not follow-up. She was evaluated by physical therapy recommended placement to skilled rehabilitation however she declined home health was arranged and patient was discharged home. Since discharge patient has not followed up with her detention worker as well as she has not been compliant with her Coumadin and potassium medication. She had been able to keep her appointments with the Coumadin clinic. On 12/29/16 patient was seen in cardiology office requesting INR checked that day due to patient having difficulty arranging transportation to and from the Coumadin clinic, INR was checked that day. Cardiology was notified of low INR 1.5-after several attempts cardiology finally contacted the patient and advised her to go to the ER. Upon review of records [facility] there seems to be a possible situation concerning patient's living arrangements as well as transportation. Apparently home health has attempted several times to contact the patient concerning establishment of services however unable to reach patient by phone. The patient presented to the ER for evaluation. According to ER records lab work obtained did show an INR of 1.4 potassium was 3.1 rest of her lab work was unremarkable and vital signs were stable. ER physician did speak with cardiology who advised bridging patient with heparin. Heparin drip was initiated and patient is being admitted for further workup and evaluation. Presently the patient denies any chest pain she does appear to be in respiratory distress. Upon conversation at times patient seemed rather confused and will look at daughter for verbal cues. She will was aware of her surroundings was oriented 3 however she did not know why she was at the hospital why she was on Coumadin. The daughter states that this is her baseline. The daughter also expresses that she prepares patient's medications daily and that she has been compliant with her medications. Patient's lung sounds are clear heart sounds are irregular S1-S2 no rubs clicks scalp is or murmurs noted abdomen soft and nontender she has +2 pitting edema to lower sternum is bilaterally pulses are present. She is hemodynamically stable at this time. I reviewed this case with who agrees with plan. Past Med Surg Social Fam HX - Past Medical History Medical history: cardiomyopathy, CHF, DVT Psychiatric history: no psych history - Social History Smoking Status: Former smoker Smokeless Tobacco Status: No Alcohol use: none Drug use: none - Family History Mother Living Status: Still Living Hx Family Endocrine Disorder: Yes (DM) Internal Medicine - H&P: Meds Aspirin Enteric Coated [Aspirin EC] 81 mg PO DAILY #30 tablet. 12/17/16 [Rx] Cholecalciferol (D-3) [Vitamin D] 2,000 unit PO DAILY #15 tablet 12/17/16 [Rx] Cinacalcet [Sensipar] 60 mg PO DAILY #30 tablet 12/17/16 [Rx] Folic Acid 1 mg PO DAILY #30 tablet 12/17/16 [Rx] Furosemide [Lasix] 20 mg PO BID #5 tablet 12/17/16 [Rx] Metoprolol XL (24 HR) Succ [Toprol Xl] 12.5 mg PO DAILY #30 tab.er.24h 12/17/16 [Rx] Warfarin [Coumadin] 1 mg PO 1800 #7 tablet 12/17/16 [Rx] Potassium Chloride [K-Tab ER] 20 meq PO DAILY 01/05/17 [History] Allergies No Known Allergies Allergy (Verified 01/05/17 16:59) All Systems PM: A 10-system review of systems was performed and is negative for pertinent findings except as documented above in the HPI. - Constitutional Constitutional: no chills, no fever(s), no night sweats - EENT Eyes: no change in vision, no discharge, no pain, no photophobia Nose, mouth and throat: no dysphagia, no nasal discharge, no neck pain, no sore throat - Cardiovascular Cardiovascular ROS IM: edema, no chest pain, no diaphoresis, no dyspnea, no lightheadedness, no palpitations, no syncope - Respiratory Respiratory: no cough, no dyspnea, no wheezing, no excessive phlegm production - Gastrointestinal Gastrointestinal: no abdominal pain, no diarrhea, no hematemesis, no hematochezia, no melena, no nausea, no vomiting - Genitourinary Genitourinary: no change in urinary stream, no dysuria, no flank pain, no hematuria - Musculoskeletal Musculoskeletal ROS IM: no numbness, no tingling - Integumentary Integumentary IM: no rash, no unusual bruising - Neurological Neurological ROS: no confusion, no convulsions, no focal weakness, no numbness, no tingling, no tremor(s) - Hematologic/Lymphatic Hematologic/Lymphatic: no easy bruising - Constitutional Vitals: Temp Pulse Resp BP Pulse Ox 97.8 F 109 18 110/89 97 01/05/17 14:42 01/05/17 17:59 01/05/17 17:59 01/05/17 17:59 01/05/17 17:59 General appearance: Present: A&O X 3, underweight - Head Head exam: Present: atraumatic, normocephalic - Eye Eye exam: Present: PERRL, conjuntiva pink, sclera anicteric Pupils: Present: PERRL - Neck Neck exam general surgery: Present: supple, trachea midline. Absent: lymphadenopathy - Respiratory Respiratory exam: Present: CTAB. Absent: accessory muscle use, rales, rhonchi, wheezes - Cardiovascular Cardiovascular exam: Present: irregular rhythm, +S1, +S2. Absent: diastolic murmur, gallop, rubs, systolic murmur - GI/Abdominal GI/Abdominal exam: Present: normal bowel sounds, soft, no peritoneal signs. Absent: distended, tenderness - Extremities Exam Extremities exam: Present: pedal edema, warm, radial pulses palpable and symetrical. Absent: calf tenderness, cyanotic - Neurological Exam Neurological exam: Present: CN II-XII intact, oriented X3, no focal deficits. Absent: pronater drift, facial droop, speech deficit - Skin Skin exam: Present: dry, intact Internal Med - H&P Results - Labs CBC & Chem 7: 01/05/17 15:40 01/05/17 15:40 <Darinel Corado H - Last Filed: 01/05/17 19:53> Date of Encounter: 01/05/17 Internal Medicine - H&P: HPI History of present illness: Ms. Cook is a 61 year old female All Systems PM: A 10-system review of systems was performed and is negative for pertinent findings except as documented above in the HPI. - Constitutional Vitals: Temp Pulse Resp BP Pulse Ox 97.8 F 109 18 110/89 97 01/05/17 14:42 01/05/17 17:59 01/05/17 17:59 01/05/17 17:59 01/05/17 17:59 Internal Med - H&P Results - Labs CBC & Chem 7: 01/05/17 15:40 01/05/17 15:40 - Attending Attestation 1. Right atrial thrombus and right lower extremity DVT, nontherapeutic INR Cardiology was called from the ER, apparently heparin drip was recommended Consider other anticoagulation options in the morning due to noncompliance with therapy 2. History of systolic CHF, possible acute mild exacerbation Continue Lasix IV, strict I's and O's, daily weight. Decrease fluid intake 3. COPD not oxygen dependent, no exacerbation 4. Hypokalemia replete as needed Omeprazole for GI prophylaxis and heparin drip for DVT prophylaxis. The patient will be admitted for observation. Full code. Time spent on this admission 40 minutes. For this encounter, I have reviewed the MANAGER [employer]AL[employer]PLIANCE or PA documentation, treatment plan, and medical decision making; and I have had face to face time with this patient.
[2017-01-05] MEDS ORDERED: Warfarin perPT PO PRN (18:26)
[2017-01-05] MEDS: Furosemide 20 MG/2 ML VIAL IVP SCH (21:28)
[2017-01-05] MEDS ORDERED: Magnesium Sulfate 2 GM in D5% in Water 100 ML IVPB ONE (22:37)
[2017-01-05] MEDS ORDERED: *HR* Heparin 5,000 UNIT/ML VIAL IVP PRN ×2 (23:19)
[2017-01-06 07:45] LABS: Basophils % 0.7 %; Eosinophils # 0.1 K/mcL (0.0-0.6); Hematocrit 34.8 % (35.3-44.9); Hemoglobin 10.6 g/dL (11.5-15.4); Immature Granulocytes % 0.2 % (0-4); Lymphocytes # 2.4 K/mcL (0.6-4.6); Lymphocytes % 42.5 %; Mean Corpuscular HGB Conc 30.5 g/dL (31.6-35.5); Mean Corpuscular Hemoglobin 25.9 pg (28.0-33.3); Mean Corpuscular Volume 84.9 fL (83.0-100.0); Mean Platelet Volume 11.3 fL (9.4-12.4); Monocytes # 0.6 K/mcL (0.0-1.3); Monocytes % 9.9 %; Neutrophils # 2.5 K/mcL (1.6-8.9); Platelet Count 253 K/mcL (140-400); Segmented Neutrophils % 44.7 %
[2017-01-06 07:50] LABS: BUN/Creatinine Ratio 12 (6-26); Blood Urea Nitrogen 8 mg/dL (7-20); Calcium 8.7 mg/dL (8.6-10.8); Carbon Dioxide 35 mEq/L (19-29); Chloride 95 mEq/L (98-109); Glucose 92 mg/dL (70-99); Magnesium 1.6 mg/dL (1.6-2.6); Osmolality,Calculated 286 (280-300); Potassium 2.7 mEq/L (3.5-4.5); Sodium 139 mEq/L (136-145); eGFR For African Americans > 60 (> 60); eGFR For Non-African Americans > 60 (> 60)
[2017-01-06 07:52] LABS: Activated Partial Thrombo Time 81.2 Seconds (26.0-36.0)
[2017-01-06 08:06] LABS: INR 1.4; Prothrombin Time 15.2 Seconds (9.4-12.1)
[2017-01-06 08:33] LABS: Phosphorous 3.2 mg/dL (2.3-4.7)
[2017-01-06] MEDS: Folic Acid 1 MG TABLET PO SCH (08:55)
[2017-01-06] MEDS: Aspirin Enteric Coated 81 MG Tablet PO SCH (08:55)
[2017-01-06] MEDS: Cholecalciferol (D-3) 1,000 UNIT TABLET PO SCH (08:56)
[2017-01-06] MEDS: Furosemide 20 MG/2 ML VIAL IVP SCH (08:59)
[2017-01-06] MEDS ORDERED: Metoprolol XL (24 HR) Succ 25 MG TAB.ER.24H PO SCH (09:00)
[2017-01-06] MEDS: Potassium Chloride 40 MEQ, Lidocaine 1% 2 ML in D5% in Water 500 ML IVPB SCH ×2 (11:58→23:27)
--- NOTE | 2017-01-06 12:05 | Internal Med Progress Note ---
Date of Encounter: 01/06/17 Time of Encounter: 12:04 - Assessment and plan (1) CHF (congestive heart failure) Current Visit: Yes Status: Acute Assessment and plan: Acute on chronic CHF will continue diuretic support Fluid restriction diet monitor I/Os, daily weights cardiology input appreciated Qualifiers: Congestive heart failure type: systolic Congestive heart failure chronicity : unspecified congestive heart failure chronicity Qualified Code(s): I50.20 - Unspecified systolic (congestive) heart failure (2) Atrial fibrillation Current Visit: No Status: Chronic Assessment and plan: Afib with RVR continue BB as per cardio recommendations continue heparin gtt bridging and coumadin cardiology to determine pricing for Xarelto for buttermaker anticoagulation will continue to monitor INR Qualifiers: Atrial fibrillation type: chronic Qualified Code(s): I48.2 - Chronic atrial fibrillation (3) DVT (deep venous thrombosis) Current Visit: No Status: Acute Assessment and plan: history of DVT and non compliant with anticoagulation continue anticoagulation with heparin gtt at this time Qualifiers: DVT location: lower extremity Affected thrombotic vein of extremity: other lower extremity vein Chronicity: acute Laterality: right Qualified Code(s) : I82.491 - Acute embolism and thrombosis of other specified deep vein of right lower extremity (4) Hyperparathyroidism Current Visit: No Status: Chronic (5) Hypokalemia Current Visit: Yes Status: Acute Assessment and plan: K supplemented will continue to monitor electrolytes and replace as needed (6) Left atrial thrombus Current Visit: No Status: Chronic - Subjective Interval history: Patient seen and examined with daughter present at bedside. Pt is AAOx 3 but does not have the understanding of her medical illness or treatment plan. She was brought to the hospital by her daughter as per patient's mathematical physicist's recommendations. Pt's daughter states that she has been giving patient all of her medications and has been taking her to all her doctors appointment, however as per coumadin clinic records, patient has missed over 3 visits, due to which they have dismissed her case. Pt has history of noncompliance. Extensive conversation was held with the patient and daughter in regards to patient's need to stay compliant Also patient and family to discuss patient's advance directives. - Constitutional Vitals: Temp Pulse Resp BP Pulse Ox 97.5 F L 97 16 117/80 99 01/06/17 11:16 01/06/17 11:16 01/06/17 11:16 01/06/17 11:16 01/06/17 11:16 General appearance: Present: A&O X 3, no acute distress - Head Head exam: Present: atraumatic, normocephalic - Eye Eye exam: Present: conjuntiva pink, sclera anicteric - Respiratory Respiratory exam: Absent: respiratory distress, wheezes (bibasilar crackles) - Cardiovascular Cardiovascular exam: Present: irregular rhythm, +S1, +S2, tachycardia - GI/Abdominal GI/Abdominal exam: Present: normal bowel sounds, soft, no peritoneal signs. Absent: distended, tenderness - Extremities Exam Extremities exam: Present: pedal edema (2+pedal edema), warm, radial pulses palpable and symetrical. Absent: calf tenderness - Neurological Exam Neurological exam: Present: alert, oriented X3 - Psychiatric Psychiatric exam: Present: normal affect, normal mood Internal Medicine: Result - Labs CBC & Chem 7: 01/06/17 06:36 01/06/17 06:36 Labs: Short CBC 01/06/17 Range/Units 06:36 WBC 5.5 (4.3-11.1) K/mcL Hgb 10.6 L (11.5-15.4) g/dL Hct 34.8 L (35.3-44.9) % Plt Count 253 (140-400) K/mcL Neutrophils # 2.5 (1.6-8.9) K/mcL BMP 01/06/17 06:36 Sodium 139 Potassium 2.7 L Chloride 95 L Carbon Dioxide 35 H BUN 8 Creatinine 0.67 Glucose 92 Calcium 8.7 - ABG Interpretation ABG results: PT/INR, D-dimer PT 15.2 Seconds (9.4-12.1) H 01/06/17 06:36 Consult Discharge Plan - Plan Referrals: Hector Dorsey DO [Primary Care Provider] -
--- NOTE | 2017-01-06 13:22 | Cardiology Consult Note ---
Date of Encounter: 01/06/17 Time of Encounter: 13:13 Assessment and Plan (1) Atrial fibrillation Current Visit: No Status: Chronic Atrial fibrillation with RVR. Went into afib with RVR overnight. Diagnosed with atrial fibrillation earlier this year. Recently started on coumadin. Toprol xl changed to lopressor by primary team. Recommend toprol xl in the setting of CMP. On toprol xl 12.5 mg daily at home and she did receive this morning with extra lopressor. Start toprol xl 25 mg daily. Increase as tolerated. Will consider digoxin if b/p drops. Kidney function is normal. Currently on coumadin. Goal INR is 2.0-3.0. Bridging was recommended in the setting of recently diagnosed LV thrombus and DVT. Patient currently without a stable home or phone. Difficult to contact for INR. Set up with assisted living is recommended with patients multiple health problems. I discussed with daughter and patient and they agree. I discussed with social studies department chair to help daughter set up while patient is in the hospital. . Qualifiers: Atrial fibrillation type: unspecified Qualified Code(s): I48.91 - Unspecified atrial fibrillation (2) CHF (congestive heart failure) Current Visit: Yes Status: Acute Acute on chronic systolic CHF. TTE 12/12/2016: Severely dilated LV with severe LV systolic dysfunction, LVEF 15- 20%. There is global LV hypokinesis. Dilated RV with mild RV hypokinesis. Severely dilated bilateral atrium. Valvular function was not well assessed. There was an echodensity in the superior aspect of the LAD measuring 2.0 x 2.5 cm. Appearance was consistent with thrombus, however, cardiac tumor could not be ruled out. Continue IV lasix. Increase to 40 mg IV BID. Replace potassium and magnesium as you are doing. Strict I&O and daily weight. 1500 ml fluid restriction. Qualifiers: Congestive heart failure type: systolic Congestive heart failure chronicity : unspecified congestive heart failure chronicity Qualified Code(s): I50.20 - Unspecified systolic (congestive) heart failure (3) Cardiomyopathy Current Visit: No Status: Acute Non-ischemic cardiomyopathy. 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 Qualifiers: Cardiomyopathy type: alcoholic Qualified Code(s): I42.6 - Alcoholic cardiomyopathy (4) Hypokalemia Current Visit: Yes Status: Acute Potassium 2.7. Currently receiving replacement. Monitor closely. Discussion w patient/family: The assessment and plan as outlined above was discussed with the patient and/or family members who expressed understanding and agreement. All questions were answered. Thank you for involving us in the care of your patient. Please call with any questions. History of Present Illness Consult date: 01/06/17 Requesting physician: Anamaria Paredes Consult reason: afib with RVR, CHF Chief complaint: Abnormal labs. History of present illness: Ms. Cook is a 61 year old female with a past medical history of severe nonischemic cardiomyopathy, EF 15%, atrial fibrillation on Coumadin, DVT, LV thrombus, and non-compliance. She was sent to the hospital due to abnormal labs. She was found to have INR 1.4 and potassium 2.6. She was very difficult to contact and we were informed that she was currently homeless. Due to non- compliance she was recommended to come to hospital to have labs addressed and coumadin bridging. CArdiology consulted for atrial fibrillation with RVR and acute on chronic CHF. She was last seen in the outpatient setting one week ago. At that time it was noted that her PCP was unable to contact her to address INR of 1.3 a week prior. Labs ordered again and found to be abnormal. Patient was not able to be contacted until four days later. At time of office visit she c/o increasing BLE and lasix was increased. She did see mild improvement. She is now being treated with IV lasix and IV heparin for bridging. She is receiving IV potassium and magnesium replacement. She denies chest pain or SOB. Denies orthopnea. Denies palpitations. Daughter inquiring about setting up assisted living and medical POA. Previous cardiac testing: TTE 12/12/2016: Severely dilated LV with severe LV systolic dysfunction, LVEF 15- 20%. There is global LV hypokinesis. Dilated RV with mild RV hypokinesis. Severely dilated bilateral atrium. Valvular function was not well assessed. There was an echodensity in the superior aspect of the LAD measuring 2.0 x 2.5 cm. Appearance was consistent with thrombus, however, cardiac tumor could not be ruled out. TTE 10/25/2016-severe LV systolic dysfunction, LVEF 15%. There is severe global LV hypokinesis. Mildly dilated right ventricle with mild RV hypokinesis. Severely dilated bilateral atrium. Mild mitral regurgitation. Mild to moderate tricuspid regurgitation. Mild to moderate pulmonary hypertension. [facility] 10/31/2016: Angiographically normal coronaries. Severe LV dysfunction, EF 15% . Venous duplex 12/12/2016: Acute DVT is present in the right-gastrocnemius vein. Past Med Surg Social Fam HX - Past Medical History Medical history: cardiomyopathy, CHF, DVT, other (LV thrombus, previous heavy ETOH abuse. ) Psychiatric history: no psych history - Social History Smoking Status: Former smoker Smokeless Tobacco Status: No Alcohol use: none Drug use: none - Family History Mother Living Status: Still Living Hx Family Endocrine Disorder: Yes (DM) Medications and Allergies Aspirin Enteric Coated [Aspirin EC] 81 mg PO DAILY #30 tablet. 12/17/16 [Rx] Cholecalciferol (D-3) [Vitamin D] 2,000 unit PO DAILY #15 tablet 12/17/16 [Rx] Cinacalcet [Sensipar] 60 mg PO DAILY #30 tablet 12/17/16 [Rx] Folic Acid 1 mg PO DAILY #30 tablet 12/17/16 [Rx] Furosemide [Lasix] 20 mg PO BID #5 tablet 12/17/16 [Rx] Metoprolol XL (24 HR) Succ [Toprol Xl] 12.5 mg PO DAILY #30 tab.er.24h 12/17/16 [Rx] Warfarin [Coumadin] 1 mg PO 1800 #7 tablet 12/17/16 [Rx] Potassium Chloride [K-Tab ER] 20 meq PO DAILY 01/05/17 [History] Allergies No Known Allergies Allergy (Verified 01/05/17 16:59) All Systems Review: A 10-system review of systems was performed and is negative for pertinent findings except as documented above in the HPI. Physical Examination Vital Signs, Last 4 Hours Temp Pulse Resp BP Pulse Ox 01/06/17 11:16 97.5 F L 97 16 117/80 99 General: Conversant, No Apparent Distress HEENT: Atraumatic, Normocephaly, Mucus Membranes Moist Neck: No JVD, Normal carotid pulses Cardiac: Other (irregularly irregular) Lungs: Normal Breath Sounds, No Wheeze, Rales, Rhonchi Neuro: Alert and responsive, No focal deficits noted, Other (Mildly confused at times. ) Abdomen: Soft, Non-Tender Skin: No rashes noted on visualized skin Musculoskeletal: No Chest Wall Tenderness Extremities: No Clubbing, No Cyanosis, Normal Pulses, Other (2+ edema up past knees.) Results 01/06/17 06:36 01/06/17 06:36 Lab Results 01/05/17 01/05/17 01/06/17 18:20 22:25 06:36 WBC 5.5 Hgb 10.6 L Hct 34.8 L Plt Count 253 INR APTT 53.3 H D Sodium Potassium Chloride Carbon Dioxide BUN Creatinine Glucose Calcium Magnesium 1.3 L 01/06/17 01/06/17 06:36 06:36 WBC Hgb Hct Plt Count INR 1.4 APTT 81.2 H D Sodium 139 Potassium 2.7 L Chloride 95 L Carbon Dioxide 35 H BUN 8 Creatinine 0.67 Glucose 92 Calcium 8.7 Magnesium 1.6 - Imaging and Cardiology Echo: report reviewed - EKG Interpretation EKG results cardiology: personally reviewed Consult Discharge Plan - Plan Referrals: Hector Dorsey DO [Primary Care Provider] -
[2017-01-06] MEDS ORDERED: Metoprolol XL (24 HR) Succ 25 MG TAB.ER.24H PO ONE (14:15)
[2017-01-06] MEDS ORDERED: *HR* Rivaroxaban 10 MG TABLET PO SCH (17:00)
[2017-01-06] MEDS ORDERED: Warfarin perPT PO PRN (18:00)
[2017-01-06] MEDS: Furosemide 40 MG/4 ML VIAL IVP SCH (20:04)
[2017-01-06] MEDS: Metoprolol XL (24 HR) Succ 25 MG TAB.ER.24H PO SCH (20:06)
[2017-01-07 07:17] LABS: Basophils % 0.1 %; Hematocrit 35.9 % (35.3-44.9); Immature Granulocytes % 0.4 % (0-4); Lymphocytes # 1.4 K/mcL (0.6-4.6); Lymphocytes % 19.5 %; Mean Corpuscular HGB Conc 30.6 g/dL (31.6-35.5); Mean Corpuscular Hemoglobin 26.6 pg (28.0-33.3); Mean Corpuscular Volume 86.9 fL (83.0-100.0); Mean Platelet Volume 11.2 fL (9.4-12.4); Monocytes # 0.7 K/mcL (0.0-1.3); Monocytes % 9.9 %; Neutrophils # 5.1 K/mcL (1.6-8.9); Platelet Count 238 K/mcL (140-400); Red Blood Count 4.13 M/mcL (3.82-4.97); Red Cell Distribution Width 21.2 % (11.5-14.5); Segmented Neutrophils % 70.1 %
[2017-01-07 07:21] LABS: INR 5.9; Prothrombin Time 67.1 Seconds (9.4-12.1)
[2017-01-07 07:33] LABS: BUN/Creatinine Ratio 14 (6-26); Blood Urea Nitrogen 12 mg/dL (7-20); Calcium 9.5 mg/dL (8.6-10.8); Carbon Dioxide 24 mEq/L (19-29); Chloride 94 mEq/L (98-109); Glucose 105 mg/dL (70-99); Magnesium 1.7 mg/dL (1.6-2.6); Osmolality,Calculated 282 (280-300); Phosphorous 3.8 mg/dL (2.3-4.7); Sodium 136 mEq/L (136-145); eGFR For African Americans > 60 (> 60); eGFR For Non-African Americans > 60 (> 60)
[2017-01-07 07:34] LABS: Potassium 5.1 mEq/L (3.5-4.5)
[2017-01-07] MEDS ORDERED: *HR* Phytonadione 5 MG TABLET PO ONE (07:44)
[2017-01-07] MEDS: Metoprolol XL (24 HR) Succ 25 MG TAB.ER.24H PO SCH ×3 (08:58→21:05)
[2017-01-07] MEDS: Cholecalciferol (D-3) 1,000 UNIT TABLET PO SCH (09:00)
[2017-01-07] MEDS: Aspirin Enteric Coated 81 MG Tablet PO SCH (09:00)
[2017-01-07] MEDS ORDERED: Metoprolol XL (24 HR) Succ 25 MG TAB.ER.24H PO SCH (09:00)
[2017-01-07] MEDS: Folic Acid 1 MG TABLET PO SCH (09:00)
[2017-01-07] MEDS: Furosemide 40 MG/4 ML VIAL IVP SCH ×2 (09:02→18:35)
--- NOTE | 2017-01-07 11:27 | Cardiology Progress Note ---
Date of Encounter: 01/07/17 Time of Encounter: 11:30 Assessment and Plan (1) Left atrial thrombus Current Visit: Yes Status: Acute Per Cardiology: TTE 12/12/2016: Severely dilated LV with severe LV systolic dysfunction, LVEF 15- 20%. There is global LV hypokinesis. Dilated RV with mild RV hypokinesis. Severely dilated bilateral atrium. Valvular function was not well assessed. There was an echodensity in the superior aspect of the LAD measuring 2.0 x 2.5 cm. Appearance was consistent with thrombus, however, cardiac tumor could not be ruled out. Patient referred to ER for subtherapeutic INR on Coumadin and need for bridging. Patient now started on Xarelto. Per review with pharmacy, patient has received Coumadin 1 mg by mouth January 05 and Xarelto 20 mg by mouth yesterday evening. INR increased from 1.4-5.9. Repeat INR 6.6. Patient to receive vitamin K as ordered by primary service. Heparin drip currently off. We' ll discontinue Xarelto for now, will resume once INR normalizes. Patient denies any active bleeding or blood loss. We'll continue to monitor closely. (2) Atrial fibrillation with RVR Current Visit: No Status: Chronic Per Cardiology: Atrial fibrillation with RVR. Went into afib with RVR during stay. Diagnosed with atrial fibrillation earlier this year. Recently started on coumadin for thrombus. On toprol xl 12.5 mg daily at home and was increased to toprol xl 25 mg BID-- systolic blood pressure in the 90s. Overall heart rate past 12 hours 79 , was briefly sinus rhythm in the 70s earlier today, now A. fib in the 90s to 100s. Beta lenny dose held this morning due to low blood pressure. Will decrease Toprol-XL to 12.5 mg by mouth twice a day and continue to monitor. Regarding long-term anticoagulation, had been recently started on coumadin. Bridging was recommended in the setting of recently diagnosed LA thrombus and DVT. Patient currently without a stable home or phone. Difficult to contact for INR. Patient was converted to Xarelto yesterday by Cardiology team. Will hold Xafrelto or now with supratherapeutic INR and resume when able. (3) Subtherapeutic international normalized ratio (INR) Current Visit: Yes Status: Resolved Per Cardiology: As above. (4) Acute exacerbation of CHF (congestive heart failure) Current Visit: No Status: Acute Per Cardiology: Non-ischemic cardiomyopathy. 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 Normal coronary angiogram October 2016. Acute on chronic systolic CHF. No CXR or BNP noted. Clinically appears stable. On IV lasix 40 mg BID. Continue replace potassium and magnesium, strict I&O and daily weight, and 1500 ml fluid restriction. Qualifiers: Congestive heart failure type: systolic Qualified Code(s): I50.23 - Acute on chronic systolic (congestive) heart failure (5) Hypokalemia Current Visit: Yes Status: Resolved Per Cardiology: Improved, continue to monitor closely with diuresis. Discussion w patient/family: The assessment and plan as outlined above was discussed with the patient and/or family members who expressed understanding and agreement. All questions were answered. Thank you for involving us in the care of your patient. Please call with any questions. Subjective Principal diagnosis: Subtherapeutic INR, afib RVR Interval history: Patient denies any chest pain, shortness of breath, palpitations. Denies any active bleeding or blood loss. Denies any concerns today. Objective Vital Signs, Last 4 Hours Temp Pulse Resp BP Pulse Ox 01/07/17 11:09 97.6 F 86 16 97/82 99 General: Conversant, No Apparent Distress HEENT: Atraumatic, Normocephaly, Mucus Membranes Moist Neck: No JVD, Normal carotid pulses Cardiac: No Murmur, Other (Irregularly irregular) Lungs: Normal Breath Sounds, No Wheeze, Rales, Rhonchi Neuro: Alert and responsive, No focal deficits noted Abdomen: Soft, Non-Tender Skin: No rashes noted on visualized skin Musculoskeletal: No Chest Wall Tenderness Extremities: No Clubbing, No Cyanosis, Normal Pulses, Other (+1 nonpitting bilateral lower extremity edema) Results 01/07/17 06:13 01/07/17 06:13 Lab Results Laboratory Tests 01/05/17 01/05/17 01/06/17 15:40 18:20 06:36 INR 1.4 Potassium 2.7 L Magnesium 1.3 L 01/06/17 01/07/17 01/07/17 06:36 06:13 06:13 INR 1.4 5.9 H* D Potassium 5.1 H D Magnesium 1.7 Intake & Output 0701/05/17 01/06/17 01/07/17 23:59 23:59 23:59 23:59 Intake Total 1106 / 1107 0 / 0 Balance 1106 / 1106 0 / 0 Weight 67.132 kg 60.4 kg 61.8 kg Active Medications Aspirin (Aspirin Ec) 81 mg PO DAILY [facility] Stop: 07/08/17 09:01 Last Admin: 01/07/17 09:00 Dose: 81 mg Cinacalcet (Sensipar) 60 mg PO DAILY [facility] Stop: 07/08/17 09:01 Folic Acid (Folic Acid) 1 mg PO DAILY [facility] Stop: 07/08/17 09:01 Last Admin: 01/07/17 09:00 Dose: 1 mg Furosemide (Lasix) 40 mg IVP BIDDIURETIC [facility] Stop: 07/08/17 17:01 Last Admin: 01/07/17 09:02 Dose: 40 mg Metoprolol Succinate (Toprol Xl) 25 mg PO BID [facility] Stop: 07/08/17 21:01 Last Admin: 01/07/17 08:58 Dose: Not Given Naloxone HCl (Narcan) 0.4 mg IVP Q2MIN PRN PRN Reason: Opioid Reversal Stop: 07/07/17 17:47 Omeprazole (Prilosec) 20 mg PO DAILY@0630 [facility] PRN Reason: Protocol Stop: 07/08/17 06:31 Last Admin: 01/07/17 05:55 Dose: Not Given Ondansetron HCl (Zofran) 4 mg IVP Q8HR PRN PRN Reason: Nausea And Vomiting Stop: 07/07/17 17:47 Potassium Chloride (Potassium Chloride) 20 meq PO DAILY [facility] Stop: 07/08/17 09:01 Last Admin: 01/07/17 09:00 Dose: 20 meq Rivaroxaban (Xarelto) 20 mg PO 1700 [facility] Stop: 07/08/17 17:01 Last Admin: 01/06/17 19:34 Dose: 20 mg Vitamin D (Vitamin D) 1,000 unit PO DAILY [facility] Stop: 07/08/17 09:01 Last Admin: 01/07/17 09:00 Dose: 1,000 unit - EKG Interpretation EKG results cardiology: other (Telemetry reviewed with average heart rate past 12 hours 79, on telemetry noted to be sinus rhythm at 76, however upon exam A. fib in the 90s to 100s.) Consult Discharge Plan - Plan Referrals: Hector Dorsey, [Primary Care Provider] -
[2017-01-07] MEDS ORDERED: *HR* LORazepam 2 MG/ML VIAL IVP PRN (12:22)
--- NOTE | 2017-01-07 12:38 | Internal Med Progress Note ---
Date of Encounter: 01/07/17 Time of Encounter: 11:55 - Assessment and plan (1) CHF (congestive heart failure) Current Visit: Yes Status: Acute Assessment and plan: Acute on chronic CHF will continue diuretic support Fluid restriction diet monitor I/Os, daily weights cardiology input appreciated Qualifiers: Congestive heart failure type: systolic Congestive heart failure chronicity : unspecified congestive heart failure chronicity Qualified Code(s): I50.20 - Unspecified systolic (congestive) heart failure (2) Atrial fibrillation Current Visit: No Status: Chronic Assessment and plan: Afib with RVR continue BB as per cardio recommendations Pt started on Xarelto d/bhavik heparin and coumadin supratherapeutic INR noted, likely secondary coumadin. Will give one dose of Vitamin K 2.5mg PO Qualifiers: Atrial fibrillation type: chronic Qualified Code(s): I48.2 - Chronic atrial fibrillation (3) DVT (deep venous thrombosis) Current Visit: No Status: Acute Assessment and plan: history of DVT and non compliant with anticoagulation continue xarelto Qualifiers: DVT location: lower extremity Affected thrombotic vein of extremity: other lower extremity vein Chronicity: acute Laterality: right Qualified Code(s) : I82.491 - Acute embolism and thrombosis of other specified deep vein of right lower extremity (4) Hyperparathyroidism Current Visit: No Status: Chronic (5) Hypokalemia Current Visit: Yes Status: Resolved (6) Left atrial thrombus Current Visit: No Status: Chronic - Subjective Interval history: Patient seen and examined with daughter present at bedside. Pt reports of feeling better at this time but states she had a panic attack overnight. Denies any discomfort at this time. - Constitutional Vitals: Temp Pulse Resp BP Pulse Ox 97.6 F 86 16 97/82 99 01/07/17 11:09 01/07/17 11:09 01/07/17 11:09 01/07/17 11:09 01/07/17 11:09 General appearance: Present: A&O X 3, no acute distress - Head Head exam: Present: atraumatic, normocephalic - Eye Eye exam: Present: conjuntiva pink, sclera anicteric - Respiratory Respiratory exam: Absent: respiratory distress, wheezes - Cardiovascular Cardiovascular exam: Present: irregular rhythm, +S1, +S2 - GI/Abdominal GI/Abdominal exam: Present: normal bowel sounds, soft, no peritoneal signs. Absent: distended, tenderness - Extremities Exam Extremities exam: Present: pedal edema, warm, radial pulses palpable and symetrical. Absent: calf tenderness - Neurological Exam Neurological exam: Present: alert, oriented X3 - Psychiatric Psychiatric exam: Present: normal affect, normal mood Internal Medicine: Result - Labs CBC & Chem 7: 01/07/17 06:13 01/07/17 06:13 Labs: Short CBC 01/07/17 Range/Units 06:13 WBC 7.3 (4.3-11.1) K/mcL Hgb 11.0 L (11.5-15.4) g/dL Hct 35.9 (35.3-44.9) % Plt Count 238 (140-400) K/mcL Neutrophils # 5.1 (1.6-8.9) K/mcL BMP 01/07/17 06:13 Sodium 136 Potassium 5.1 H D Chloride 94 L Carbon Dioxide 24 BUN 12 Creatinine 0.87 Glucose 105 H Calcium 9.5 - ABG Interpretation ABG results: PT/INR, D-dimer PT 67.1 Seconds (9.4-12.1) H* D 01/07/17 06:13 Consult Discharge Plan - Plan Referrals: Hector Dorsey DO [Primary Care Provider] -
[2017-01-07 12:51] LABS: INR 6.6; Prothrombin Time 75.5 Seconds (9.4-12.1)
[2017-01-07] MEDS: *HR* Digoxin 0.5 MG/2 ML AMPUL IVP SCH (18:56)
[2017-01-08] MEDS: Metoprolol XL (24 HR) Succ 25 MG TAB.ER.24H PO SCH ×2 (00:37→09:16)
[2017-01-08] MEDS: *HR* Digoxin 0.5 MG/2 ML AMPUL IVP SCH ×2 (00:42→05:37)
[2017-01-08 04:46] LABS: Basophils # 0.1 K/mcL (0.0-0.2); Basophils % 0.8 %; Eosinophils # 0.1 K/mcL (0.0-0.6); Eosinophils % 1.4 %; Hematocrit 34.5 % (35.3-44.9); Hemoglobin 10.8 g/dL (11.5-15.4); Immature Granulocytes % 0.2 % (0-4); Lymphocytes # 2.3 K/mcL (0.6-4.6); Lymphocytes % 35.8 %; Mean Corpuscular HGB Conc 31.3 g/dL (31.6-35.5); Mean Corpuscular Hemoglobin 26.5 pg (28.0-33.3); Mean Corpuscular Volume 84.8 fL (83.0-100.0); Mean Platelet Volume 11.2 fL (9.4-12.4); Monocytes # 0.6 K/mcL (0.0-1.3); Monocytes % 9.2 %; Neutrophils # 3.4 K/mcL (1.6-8.9); Platelet Count 243 K/mcL (140-400); Red Blood Count 4.07 M/mcL (3.82-4.97); Segmented Neutrophils % 52.6 %
[2017-01-08 04:49] LABS: INR 2.8; Prothrombin Time 31.6 Seconds (9.4-12.1)
[2017-01-08 05:00] LABS: BUN/Creatinine Ratio 18 (6-26); Blood Urea Nitrogen 13 mg/dL (7-20); Calcium 9.8 mg/dL (8.6-10.8); Carbon Dioxide 34 mEq/L (19-29); Chloride 96 mEq/L (98-109); Glucose 74 mg/dL (70-99); Magnesium 1.5 mg/dL (1.6-2.6); Osmolality,Calculated 285 (280-300); Phosphorous 2.7 mg/dL (2.3-4.7); Sodium 138 mEq/L (136-145); eGFR For African Americans > 60 (> 60); eGFR For Non-African Americans > 60 (> 60)
[2017-01-08 05:01] LABS: Potassium 3.6 mEq/L (3.5-4.5)
[2017-01-08] MEDS ORDERED: Magnesium Sulfate 2 GM in D5% in Water 100 ML IVPB ONE (08:18)
[2017-01-08] MEDS: Aspirin Enteric Coated 81 MG Tablet PO SCH (09:16)
[2017-01-08] MEDS: Folic Acid 1 MG TABLET PO SCH (09:16)
[2017-01-08] MEDS: Cholecalciferol (D-3) 1,000 UNIT TABLET PO SCH (09:16)
[2017-01-08] MEDS: Furosemide 40 MG/4 ML VIAL IVP SCH ×2 (09:16→17:18)
--- NOTE | 2017-01-08 10:01 | Cardiology Progress Note ---
Date of Encounter: 01/08/17 Time of Encounter: 09:00 Assessment and Plan (1) Left atrial thrombus Current Visit: Yes Status: Acute Per Cardiology: TTE 12/12/2016: Severely dilated LV with severe LV systolic dysfunction, LVEF 15- 20%. There is global LV hypokinesis. Dilated RV with mild RV hypokinesis. Severely dilated bilateral atrium. Valvular function was not well assessed. There was an echodensity in the superior aspect of the LAD measuring 2.0 x 2.5 cm. Appearance was consistent with thrombus, however, cardiac tumor could not be ruled out. Patient referred to ER for subtherapeutic INR on Coumadin and need for bridging. Per review with pharmacy, patient received Coumadin 1 mg by mouth January 05 and Xarelto 20 mg PO 01/06. INR increased from 1.4-5.9. Repeat INR 6.6. Patient received vitamin K as ordered by primary service. Heparin drip off. Xarelto held last night. INR today 2.8, discussed with Dr. Hernandez, will resume Xarelto 20mg PO daily this evening. Discussed with Dr. Hernandez, will s/o, re-consult PRN, f/u scheduled. (2) Atrial fibrillation with RVR Current Visit: No Status: Chronic Per Cardiology: Now in SR with avg HR 78, currently 80's. SP stable. On Toprol XL 12.5mg PO BID , s/p Dig load, discussed with Dr. Hernandez, will add digoxin 0.125mg PO daily tomorrow. Regarding long-term anticoagulation, resuming Xarelto. (3) Acute exacerbation of CHF (congestive heart failure) Current Visit: No Status: Acute Per Cardiology: Non-ischemic cardiomyopathy. 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 Normal coronary angiogram October 2016. Acute on chronic systolic CHF. No CXR or BNP noted. Clinically appears stable. On IV lasix 40 mg BID-- consider decreasing to home dose. Continue replace potassium and magnesium, strict I&O and daily weight, and 1500 ml fluid restriction. Mg decreased again to 1.5, will add Mag oxide. Qualifiers: Congestive heart failure type: systolic Qualified Code(s): I50.23 - Acute on chronic systolic (congestive) heart failure Discussion w patient/family: The assessment and plan as outlined above was discussed with the patient and/or family members who expressed understanding and agreement. All questions were answered. Thank you for involving us in the care of your patient. Please call with any questions. Subjective Principal diagnosis: Subtherapeutic INR, afib RVR Interval history: Patient denies any chest pain, shortness of breath, palpitations. Denies any active bleeding or blood loss. Denies any concerns today. Objective Selected Entries 01/08/17 00:53 01/08/17 05:30 Temperature 98.1 F Pulse Rate 70 Respiratory Rate 16 Blood Pressure 123/42 O2 Sat by Pulse Oximetry 95 Oxygen Flow Rate (LPM) 2 Oxygen Delivery Method Nasal Cannula General: Conversant, No Apparent Distress HEENT: Atraumatic, Normocephaly, Mucus Membranes Moist Neck: No JVD, Normal carotid pulses Cardiac: Reg Rate and Rhythm, Normal S1 and S2, No Murmur Lungs: Normal Breath Sounds, No Wheeze, Rales, Rhonchi Neuro: Alert and responsive, No focal deficits noted Abdomen: Soft, Non-Tender Skin: No rashes noted on visualized skin Musculoskeletal: No Chest Wall Tenderness Extremities: No Clubbing, No Cyanosis, No Edema, Normal Pulses Results 01/08/17 03:47 01/08/17 03:47 Lab Results 01/07/17 01/08/17 01/08/17 12:29 03:47 03:47 WBC 6.4 Hgb 10.8 L Hct 34.5 L Plt Count 243 INR 6.6 H* Sodium 138 Potassium 3.6 D Chloride 96 L Carbon Dioxide 34 H BUN 13 Creatinine 0.74 Glucose 74 Calcium 9.8 Magnesium 1.5 L 01/08/17 03:47 WBC Hgb Hct Plt Count INR 2.8 D Sodium Potassium Chloride Carbon Dioxide BUN Creatinine Glucose Calcium Magnesium Active Medications Aspirin (Aspirin Ec) 81 mg PO DAILY [facility] Stop: 07/08/17 09:01 Last Admin: 01/08/17 09:16 Dose: 81 mg Cinacalcet (Sensipar) 60 mg PO DAILY [facility] Stop: 07/08/17 09:01 Digoxin (Lanoxin) 0.125 mg PO DAILY [facility] Stop: 07/11/17 09:01 Folic Acid (Folic Acid) 1 mg PO DAILY [facility] Stop: 07/08/17 09:01 Last Admin: 01/08/17 09:16 Dose: 1 mg Furosemide (Lasix) 40 mg IVP BIDDIURETIC [facility] Stop: 07/08/17 17:01 Last Admin: 01/08/17 09:16 Dose: 40 mg Lorazepam (Ativan) 1 mg IVP Q12H PRN PRN Reason: severe anxiety/panic attack Stop: 07/09/17 12:23 Metoprolol Succinate (Toprol Xl) 12.5 mg PO BID [facility] Stop: 07/09/17 13:00 Last Admin: 01/08/17 09:16 Dose: 12.5 mg Naloxone HCl (Narcan) 0.4 mg IVP Q2MIN PRN PRN Reason: Opioid Reversal Stop: 07/07/17 17:47 Omeprazole (Prilosec) 20 mg PO DAILY@0630 [facility] PRN Reason: Protocol Stop: 07/08/17 06:31 Last Admin: 01/08/17 05:31 Dose: 20 mg Ondansetron HCl (Zofran) 4 mg IVP Q8HR PRN PRN Reason: Nausea And Vomiting Stop: 07/07/17 17:47 Potassium Chloride (Potassium Chloride) 20 meq PO DAILY [facility] Stop: 07/08/17 09:01 Last Admin: 01/08/17 09:16 Dose: 20 meq Rivaroxaban (Xarelto) 20 mg PO 1700 [facility] Stop: 07/10/17 17:01 Vitamin D (Vitamin D) 1,000 unit PO DAILY [facility] Stop: 07/08/17 09:01 Last Admin: 01/08/17 09:16 Dose: 1,000 unit - EKG Interpretation EKG results cardiology: other (Tele shows avg past 8 hrs 78, currently SR in 80' s) Consult Discharge Plan - Plan Referrals: Hector Dorsey DO [Primary Care Provider] -
--- NOTE | 2017-01-08 13:18 | Internal Med Progress Note ---
Date of Encounter: 01/08/17 Time of Encounter: 13:16 - Assessment and plan (1) CHF (congestive heart failure) Current Visit: Yes Status: Acute Assessment and plan: Acute on chronic CHF will continue diuretic support Fluid restriction diet monitor I/Os, daily weights cardiology input appreciated Qualifiers: Congestive heart failure type: systolic Congestive heart failure chronicity : unspecified congestive heart failure chronicity Qualified Code(s): I50.20 - Unspecified systolic (congestive) heart failure (2) Atrial fibrillation Current Visit: No Status: Chronic Assessment and plan: Afib with RVR continue BB as per cardio recommendations continue Xarelto Qualifiers: Atrial fibrillation type: chronic Qualified Code(s): I48.2 - Chronic atrial fibrillation (3) DVT (deep venous thrombosis) Current Visit: No Status: Acute Assessment and plan: history of DVT and non compliant with anticoagulation continue xarelto Qualifiers: DVT location: lower extremity Affected thrombotic vein of extremity: other lower extremity vein Chronicity: acute Laterality: right Qualified Code(s) : I82.491 - Acute embolism and thrombosis of other specified deep vein of right lower extremity (4) Hyperparathyroidism Current Visit: No Status: Chronic (5) Hypokalemia Current Visit: Yes Status: Resolved (6) Left atrial thrombus Current Visit: No Status: Chronic (7) Hypomagnesemia Current Visit: Yes Status: Acute Assessment and plan: Mg supplemented continue to monitor electrolytes and replace as needed - Subjective Interval history: Patient seen and examined with daughter present at bedside. Pt reports of feeling better at this time. No overnight issues reported. Noted to have supratherapeutic INR yesterday due to which Xarelto was placed on hold by cardiology yesterday Vitamin K PO was given INR within therapeutic range today, will resume Xarelto - Constitutional Vitals: Temp Pulse Resp BP Pulse Ox 98.1 F 77 15 96/68 95 01/08/17 11:26 01/08/17 11:26 01/08/17 11:26 01/08/17 11:26 01/08/17 11:26 General appearance: Present: A&O X 3, no acute distress - Head Head exam: Present: atraumatic, normocephalic - Eye Eye exam: Present: conjuntiva pink, sclera anicteric - Respiratory Respiratory exam: Present: CTAB. Absent: accessory muscle use, rales, rhonchi, wheezes - Cardiovascular Cardiovascular exam: Present: irregular rhythm, +S1, +S2 - GI/Abdominal GI/Abdominal exam: Present: normal bowel sounds, soft, no peritoneal signs. Absent: distended, tenderness - Extremities Exam Extremities exam: Present: pedal edema, warm, radial pulses palpable and symetrical. Absent: calf tenderness, cyanotic - Neurological Exam Neurological exam: Present: alert, oriented X3 - Psychiatric Psychiatric exam: Present: normal affect, normal mood Internal Medicine: Result - Labs CBC & Chem 7: 01/08/17 03:47 01/08/17 03:47 Labs: Short CBC 01/08/17 Range/Units 03:47 WBC 6.4 (4.3-11.1) K/mcL Hgb 10.8 L (11.5-15.4) g/dL Hct 34.5 L (35.3-44.9) % Plt Count 243 (140-400) K/mcL Neutrophils # 3.4 (1.6-8.9) K/mcL BMP 01/08/17 03:47 Sodium 138 Potassium 3.6 D Chloride 96 L Carbon Dioxide 34 H BUN 13 Creatinine 0.74 Glucose 74 Calcium 9.8 - ABG Interpretation ABG results: PT/INR, D-dimer PT 31.6 Seconds (9.4-12.1) H D 01/08/17 03:47 Consult Discharge Plan - Plan Referrals: Hector Dorsey DO [Primary Care Provider] -
[2017-01-08] MEDS: Magnesium Oxide 400 MG TABLET PO SCH ×2 (13:23→20:18)
[2017-01-08] MEDS: *HR* Rivaroxaban 10 MG TABLET PO SCH (17:18)
[2017-01-09] MEDS ORDERED: Permethrin Cream Rinse 60 ML LIQUID TP ONE (00:36)
[2017-01-09 05:13] LABS: INR 3.4; Prothrombin Time 37.9 Seconds (9.4-12.1)
[2017-01-09 05:14] LABS: Basophils % 0.3 %; Eosinophils # 0.1 K/mcL (0.0-0.6); Eosinophils % 1.2 %; Hemoglobin 10.6 g/dL (11.5-15.4); Immature Granulocytes % 0.3 % (0-4); Lymphocytes # 1.6 K/mcL (0.6-4.6); Lymphocytes % 24.5 %; Mean Corpuscular HGB Conc 31.2 g/dL (31.6-35.5); Mean Corpuscular Hemoglobin 26.7 pg (28.0-33.3); Mean Corpuscular Volume 85.6 fL (83.0-100.0); Mean Platelet Volume 10.8 fL (9.4-12.4); Monocytes # 0.7 K/mcL (0.0-1.3); Monocytes % 10.4 %; Neutrophils # 4.2 K/mcL (1.6-8.9); Platelet Count 261 K/mcL (140-400); Red Blood Count 3.97 M/mcL (3.82-4.97); Red Cell Distribution Width 21.3 % (11.5-14.5); Segmented Neutrophils % 63.3 %
[2017-01-09 05:25] LABS: BUN/Creatinine Ratio 14 (6-26); Blood Urea Nitrogen 9 mg/dL (7-20); Calcium 8.9 mg/dL (8.6-10.8); Carbon Dioxide 34 mEq/L (19-29); Chloride 99 mEq/L (98-109); Glucose 85 mg/dL (70-99); Magnesium 1.6 mg/dL (1.6-2.6); Osmolality,Calculated 288 (280-300); Phosphorous 2.6 mg/dL (2.3-4.7); Potassium 3.4 mEq/L (3.5-4.5); eGFR For African Americans > 60 (> 60); eGFR For Non-African Americans > 60 (> 60)
[2017-01-09 05:26] LABS: Sodium 140 mEq/L (136-145)
[2017-01-09] MEDS ORDERED: *HR* Digoxin 0.125 MG TABLET PO SCH (09:00)
[2017-01-09] MEDS: Magnesium Oxide 400 MG TABLET PO SCH (09:21)
[2017-01-09] MEDS: Furosemide 40 MG/4 ML VIAL IVP SCH (09:21)
[2017-01-09] MEDS: Aspirin Enteric Coated 81 MG Tablet PO SCH (09:22)
[2017-01-09] MEDS: Folic Acid 1 MG TABLET PO SCH (09:22)
[2017-01-09] MEDS: Metoprolol XL (24 HR) Succ 25 MG TAB.ER.24H PO SCH (09:23)
[2017-01-09] MEDS: Cholecalciferol (D-3) 1,000 UNIT TABLET PO SCH (09:23)
--- NOTE | 2017-01-09 11:09 | Discharge Summary ---
Date of Encounter: 01/09/17 Time of Encounter: 11:04 - Discharge Diagnosis (1) CHF (congestive heart failure) Priority: Primary Status: Acute Qualifiers: Congestive heart failure type: systolic Congestive heart failure chronicity : unspecified congestive heart failure chronicity Qualified Code(s): I50.20 - Unspecified systolic (congestive) heart failure (2) Atrial fibrillation Priority: Primary Status: Chronic Qualifiers: Atrial fibrillation type: chronic Qualified Code(s): I48.2 - Chronic atrial fibrillation (3) DVT (deep venous thrombosis) Priority: Secondary Status: Chronic Qualifiers: DVT location: lower extremity Affected thrombotic vein of extremity: other lower extremity vein Chronicity: acute Laterality: right Qualified Code(s) : I82.491 - Acute embolism and thrombosis of other specified deep vein of right lower extremity (4) Hyperparathyroidism Priority: Secondary Status: Chronic (5) Hypokalemia Priority: Secondary Status: Resolved (6) Left atrial thrombus Priority: Secondary Status: Chronic (7) Hypomagnesemia Priority: Secondary Status: Acute - Discharge Medications Prescriptions: Digoxin [Lanoxin] 0.125 mg PO DAILY #30 tab Furosemide [Lasix] 20 mg PO BID #60 tablet Metoprolol XL (24 HR) Succ [Toprol Xl] 12.5 mg PO BID #60 Home Medications: Aspirin Enteric Coated [Aspirin EC] 81 mg PO DAILY #30 tablet. 12/17/16 [Rx] Cholecalciferol (D-3) [Vitamin D] 2,000 unit PO DAILY #15 tablet 12/17/16 [Rx] Cinacalcet [Sensipar] 60 mg PO DAILY #30 tablet 12/17/16 [Rx] Folic Acid 1 mg PO DAILY #30 tablet 12/17/16 [Rx] Warfarin [Coumadin] 1 mg PO 1800 #7 tablet 12/17/16 [Rx] Potassium Chloride [K-Tab ER] 20 meq PO DAILY 01/05/17 [History] Digoxin [Lanoxin] 0.125 mg PO DAILY #30 tab 01/09/17 [Rx] Furosemide [Lasix] 20 mg PO BID #60 tablet 01/09/17 [Rx] Metoprolol XL (24 HR) Succ [Toprol Xl] 12.5 mg PO BID #60 01/09/17 [Rx] Rivaroxaban [Xarelto] 20 mg PO 1700 #0 tab 01/09/17 [Rx] Allergies/Adverse Reactions: Allergies No Known Allergies Allergy (Verified 01/05/17 16:59) Date of admission: 01/05/17 17:14 Primary care physician: Hector Dorsey DO Consults: 01/05/17 17:49 Consult to [employer] [CONS] Routine Reason for SW Consult: need for home health 01/06/17 12:02 Consult to Cardiology [CONS] Routine Comment: Consulting Provider: Cardiology Fior Reason for Consult: CHF, Afib with RVR Call Completed: Yes Discharging clinician: Anamaria Paredes Anticipated date of discharge: 01/09/17 - Patient Status Disposition: Home, Self-Care Condition: Good Functional capacity at discharge: independent ambulation Overall status at discharge: patient is back to baseline - Discharge Instructions Follow Up With: Hector Dorsey DO [Primary Care Provider] - 02/09/17 10:00 am Additional Instructions: Please follow up with your primary care physician and [facility] within one week after your discharge from the hospital. Digoxin, Xarelto have been added to your home medications. Please take these medications as prescribed. Your home dose of Lasix and Metoprolol have been changed, please take these medications as prescribed. Xarelto increases your risk of bleeding. please seek medical help immediately if you sustain a fall or notice any active bleeding. Please resume all your home medications as prescribed by your primary care physician. - Diet and Activity Activity: resume usual activities as tolerated Diet: low fat, low cholesterol, low salt diet Hospital course: Ms. Cook is a 61 year old female with extensive medical history including CHF, nonischemic cardiomyopathy, Afib, right DVT, left atrial thrombus, noncompliance who was brought to the hospital as per [facility] and wheel's recommendations for management of hypokalemia, subtherapeutic INR. Upon arrival to the ER, pt was found to have Afib with RVR and CHF decompensation. She was followed by cardiology and was started on Xarelto and digoxin. Pt was also placed on IV diuretics. Pt responded appropriately to therapy and is cleared by cardiology for discharge. She was also noted to have lice during this hospitalization, for which she was treated. Pt and daughter reported of being homeless, however refused help from manager social media stating that they will be going to a friend's place after discharge. At this time, patient is hemodynamically stable and will be discharged to home with follow up with PCP and [facility]. Pt's discharge plan was discussed in detail with the patient and daughter. They both express understanding of the discharge instructions. Pt willing to stay compliant with her medications after discharge. - Time Spent with Patient Total time spent providing and/or coordinating discharge services: Greater than 30 minutes - Constitutional Vitals: Temp Pulse Resp BP Pulse Ox 98.2 F 89 16 111/83 95 01/09/17 07:15 01/09/17 07:15 01/09/17 07:15 01/09/17 07:15 01/09/17 07:15 General appearance: Present: A&O X 3, no acute distress - Head Head exam: Present: atraumatic, normocephalic - Eye Eye exam: Present: normal appearance, conjuntiva pink, sclera anicteric - Respiratory Respiratory exam: Present: CTAB. Absent: accessory muscle use, rales, rhonchi, wheezes - Cardiovascular Cardiovascular exam: Present: irregular rhythm, +S1, +S2 - GI/Abdominal GI/Abdominal exam: Present: normal bowel sounds, soft, no peritoneal signs. Absent: distended, tenderness - Extremities Exam Extremities exam: Present: pedal edema, warm, radial pulses palpable and symetrical. Absent: calf tenderness - Neurological Exam Neurological exam: Present: alert, oriented X3 - Psychiatric Psychiatric exam: Present: normal affect, normal mood
[2017-01-09 11:45] VITALS: BP 103/70
[2017-01-09 12:04] LABS: INR 2.2
[2017-01-09] MEDS: *HR* Rivaroxaban 10 MG TABLET PO SCH (16:32)
[2017-01-09] MEDS ORDERED: Furosemide 20 MG TABLET PO SCH (17:00)
== END 2017-01-09 17:00 | disposition home or self-care (01) | DRG 194 ==
LOC: EMEROO 14:33 → 2NENU 14:33
PROVIDERS: ADMIT Nurse Practitioner Family; ATTEND Internal Medicine